=== PATIENT | male | born 1980 | race Caucasian/White ===

== ENCOUNTER 2018-02-03 13:00 | Outpatient (RCR) | payer MEDICAID, SELFPAY ==
--- NOTE | 2017-08-31 08:55 | HP.PTEVAL_ITS ---
Patient's Visit Information MCKAYLA SOLORZANO II is a 37 year old M referred to Physical Therapy by Raffi Ibarra with a diagnosis of CERVICAL MYOFASCIAL STRAIN,CERVICALAGIA,CHRONIC SHOULDER PAIN,DECONDITIONED. Date of Evaluation: 08/31/17 Physical Therapist: Geovanni Nicole PT, - Visit Plan Frequency: 2x /Week Duration: 4 Weeks Plan: Aquatic PT for cervical ROM,shoulder ROM ,postural ex's,strengthening UE - Subjective Subjective: This 37 y/o male presents to physical therapy cervical and shoulder pain for 5years. Patient had injury many years ago affected shoulder problems. Family DR recommended pain pain management.Adjusted Medication. Patient has pain injection epidural injections helped temporarly. DR recommended aquatic PT. Location of pain cervical left to UT to right shoulder.Symptoms worse with bending,siiting,lifting,driving,turning cervical spine. Symptoms better with MEDS ,ice/heat.Occassioanlly,parathesia left fingers. Patient has migraines/VILLA front. Denies tiinutus/nausea. Pain affects sleeping. Patient pain affects ADL' S and housework.Patient has been unable to work. Patient also had recent surgery left knee patella surgery lateral release and arthrospoic to improve tracking of patella. VOCATION: construction. SOCAIL: - Pain Left Neck Pain Intensity (Out of 10): 6 Pain Intensity Range: 10 Left Scapula Pain Intensity (Out of 10): 8 Pain Intensity Range: 10 - Objective POSTURE: mild foward posture. PALAPTION: UT/levator/occiput/SCAPULAR. NEURO: denies parathesia/tingling,reflexes C5-6-7. AROM: shoulder flexion 110 degrees, abduction 100 degrees with pain,ER pain 80 degrees -L,R - WFL. MMT: RTC 4-/5 SHOULDER 3+/5 -L,-R 4/5. CERVICAL ROM: flexion mod loss,extension/lateral flexion/rotation MOD - Special Tests C/S Radiculapathy - Left Upper limb tension test: Positive C/S Radiculapathy - Right Upper limb tension test: Positive C/S Radiculapathy - Left Spurlings: Positive C/S Radiculapathy - Right Spurlings: Positive C/S Radiculapathy - Left Cervical distraction: Positive C/S Radiculapathy - Right Cervical distraction: Positive C/S Radiculapathy - Right Relief test: Positive Vertebral Artery Test: Negative Cervical Sitting: Protrusion - Mechanical Response: No effect Cervical Sitting: Protrusion - Symptoms During Testing: Increases Cervical Sitting: Protrusion - Symptoms After Testing: Worse Cervical Sitting: Retraction - Mechanical Response: No effect Cervical Sitting: Retraction - Symptoms During Testing: Increases Cervical Sitting: Retraction - Symptoms After Testing: Worse - Goals Goal 1:: Independanat with Aquatic PT Goal Time Frame: 4-6 Weeks Goal 2:: Decrease shoulder and cervical pain by 50% or greater to improve function ADL'S Goal Time Frame: 4-6 Weeks Goal 3:: Independant with posture for ADL'S Goal Time Frame: 4-6 Weeks Goal 4:: Decrease shoulder pain pain and cervical pain by 50% or grater to improve function with ADL'S Goal Time Frame: 4-6 Weeks Goal 5:: Patient increase strength of left shoulder 4/5 to improve function with ADL'S and overhead activities Goal Time Frame: 4-6 Weeks - Rehabilitation Potential Physical Therapy Diagnosis: This 37 yo male presents with cervical and left shoulder pain with poor ROM, strength ,impairs ,ADL'S and job demands along with being deconditioned Rehabilitation Potential: Good - Anticipated Interventions Patient/Client Instruction: Educate patient on: Condition, Plan of Care For the Purpose of:: To decrease pain, To increase ROM, To improve muscle performance and motor function, To improve ability to perform ADL's, To increase tolerance to activity/condition/position, To improve ability of physical actions for home/community/work/leisure, To improve health of tissue, To decrease soft tissue restriction, To increase flexibility/ROM, To improve endurance, To improve health and function, To prevent re-injury, To improve ability to perform tasks related to life management Therapeutic Exercise to Include: Strength training, Body mechanics, Postural training, Flexibilty training, In an aquatic setting, Active ROM Comment: UE/CERVICAL For the Purpose of:: To decrease pain, To increase ROM, To improve muscle performance and motor function, To increase tolerance to activity/condition/ position, To improve ability of physical actions for home/community/work/leisure , To improve health of tissue, To decrease soft tissue restriction, To increase flexibility/ROM, To improve health and function, To foster healthy habits, To prevent re-injury, To improve ability to perform tasks related to life management Thank you for the opportunity to evaluate your patient. For Medicare and Medicare HMO plans, please review the plan of care and approve it. It will need to be FAXED BACK to us at [phone] for Medicare purposes. Please let me know if there are questions or concerns regarding this plan of care. Physician Signature: Date:
--- NOTE | 2018-02-03 13:31 | HP.PTDCSUM_ITS ---
HP - PT D/C Summary It has been my pleasure to treat MCKAYLA SOLORZANO II under orders from Raffi Ibarra, for the diagnosis of CERVICAL MYOFASCIAL STRAIN,CERVICALAGIA,CHRONIC SHOULDER PAIN,DECONDITIONED for a total of 21 visit(s). Discharge Date: 02/03/18 Please see the following information for a summary of their discharge status. - Subjective Subjective: Water exercised helped with pain for function with walking , standing and ADL'S. Pain is intemittant but mobility is better. - Pain Left Neck Pain Intensity (Out of 10): 6 Left Scapula Pain Intensity (Out of 10): 2 Back Pain Intensity (Out of 10): 4 Left Knee Pain Intensity (Out of 10): 6 - Overall Improvement % Improvement: 50 - Objective Objective/Function: POSTURE: mild foward posture. PALPATION: tender UT/ levator. AROM: flexion 95 degrees left ,140 flexion right,abd left 90 degrees, . MMT: BUE 4-/5 ,left shoulder 3/5 pain. + cervical quadrant - Goals Goal 1:: Independanat with Aquatic PT Goal Progress: Goal Met Goal 2:: Decrease shoulder and cervical pain by 50% or greater to improve function ADL'S Goal Progress: Progressing Goal 3:: Independant with posture for ADL'S Goal Progress: Progressing Goal 4:: Decrease shoulder pain pain and cervical pain by 50% or grater to improve function with ADL'S Goal Progress: Progressing Goal 5:: Patient increase strength of left shoulder 4/5 to improve function with ADL'S and overhead activities Goal Progress: Progressing - Plan Plan: D/C - D/C Information If there are questions or concerns regarding this patient's physical therapy, please feel free to call me at [phone]. Thank you for the referral of this patient. Sincerely, Geovanni Nicole, PT,
== END 2018-02-03 19:00 | disposition home or self-care (01) ==
LOC: PT 13:00
PROVIDERS: Family Provider Internal Medicine; PCP Internal Medicine; Visit Provider Anesthesiology Pain Medicine
DX: S16.1XXS Strain of muscle, fascia and tendon at neck level, sequela (principal); M54.2 Cervicalgia; M25.619 Stiffness of unspecified shoulder, not elsewhere classified; G89.29 Other chronic pain
CPT/HCPCS: 97113; 97162; 97530

== ENCOUNTER → 2018-06-28 14:00 | Outpatient (CLI) | payer MEDICAID, SELFPAY ==
[2018-05-24 14:00] VITALS: BP 148/87; PULSE 94; RESP 16; TEMP 36.8; O2SAT 97; BMI 50.3
--- NOTE | 2018-05-24 14:22 | SDCEKG_ITS ---
Test Reason : Blood Pressure : / mmHG Vent. Rate : 093 BPM Atrial Rate : 093 BPM P-R Int : 152 ms QRS Dur : 096 ms QT Int : 364 ms P-R-T Axes : 032 020 037 degrees QTc Int : 452 ms Normal sinus rhythm Normal ECG Confirmed by LEOBARDO HUYNH, KIKO ([id number]), editor department [facility] ([id number]) on 05/26/2018 2:02:56 PM Referred By: Leticia Richardson Confirmed By:KIKO BOOTH MD
[2018-05-24 15:50] LABS: Anion Gap 10 (5-15); BUN 12 mg/dL (7-18); BUN/Creat Ratio 13.7 RATIO (10-20); Calcium,Total 8.8 mg/dL (8.5-10.1); Chloride 105 mmol/L (98-107); Creatinine, Serum 0.87 mg/dL (0.70-1.30); EST Glomerular Filtration Rate 105 mL/min (>60); Est Glom Filt Rate - Afr Amer 127 mL/min (>60); Estimated Creatinine Clearance 113.56 ml/min; Glucose 93 mg/dL (74-106); Potassium 4.1 mmol/L (3.5-5.1); Sodium Level 143 mmol/L (136-145)
[2018-05-24 16:36] LABS: HIV - WCH Non-Reactive (Nonreactive)
[2018-05-25 09:08] LABS: HEPATITIS B SURFACE AG Negative (Negative); Hepatitis A AB, Total Negative (Negative); Hepatitis A IgM Antibody Negative (Negative); Hepatitis B Core AB IgM Negative (Negative); Hepatitis B Core Ab Total Negative (Negative); Hepatitis C Ab 0.1 s/co ratio (0.0-0.9)
[2018-05-25 11:11] LABS: Hep B Surface Antibodies Non Reactive (.)
== END ==
PROVIDERS: Family Provider Internal Medicine; PCP Internal Medicine; Visit Provider Orthopaedic Surgery
DX: Z01.812 Encounter for preprocedural laboratory examination (principal)
CPT/HCPCS: 36415; 80048; 86703; 86704; 86705; 86706; 86708; 86709; 86803; 87340; 93005

== ENCOUNTER 2018-09-13 08:09 | Inpatient (IN) | payer MEDICAID, SELFPAY ==
[2018-05-24 14:00] VITALS: BMI 50.3
[2018-09-13] VITALS (9 sets, daily range): BP systolic 112–152; BP diastolic 53–91; PULSE 102–115; RESP 14–18; TEMP 36.4–37.4; O2SAT 92–97; BMI 53.5
--- NOTE | 2018-09-13 11:18 | DCINST_ITS ---
Discharge Diet: No Restrictions - ttwb left leg with leg locked in extension during ambulation and at night, ice/ankle pumps/elevate toes above nose, call with calf pain, fever, chills or other issues; follow up in 5 days for dressing change and brace adjustment, may range motion of knee 0-40 while seated Discharge Activity: May Not Drive May shower in (days): 1 Ice area for (Minutes): 20 - Every hour while awake. Weight Bearing Status: Weight bearing as tolerated Keep extremity elevated above heart level: Operative Extremity Call your doctor if your incision/area has: Continuous Slow Oozing, Sudden Incre ased Bleeding, Increased Pain/ Swelling, Increased Redness, Foul Smelling Discharge Call your doctor if you observe: Fever of 101 or Higher, Coldness, Increased Pain, Numbness or Tingling, Change in Color, Calf discomfort Allergies/Adverse Reactions: Allergies buprenorphine [From Butrans] Allergy (Verified 09/13/18 08:36) Rash methylphenidate HCl [From Ritalin] Allergy (Verified 09/13/18 08:36) Hives Penicillins [PCN] Allergy (Verified 09/13/18 08:36) Hives Medications to take at Discharge Omeprazole [Prilosec] 20 mg PO DAILY 08/28/15 Gabapentin [Neurontin] 600 mg PO DAILY 03/16/16 Methocarbamol [Robaxin] 500 mg PO TID 03/16/16 citalopram 20 mg tablet 20 mg PO QDAY 10/12/17 divalproex 500 mg tablet,delayed release 500 mg PO BID tab 10/12/17 risperidone 1 mg tablet 2 mg PO QHS 10/12/17 Acetaminophen [Tylenol Extra Strength] 500 - 1,000 mg PO Q6H PRN PRN 05/24/18 Divalproex Sodium [Depakote] 1,000 mg PO QHS 05/24/18 Hydrocodone Bitart/Apap 5-325 [[place] 5MG-325MG] 1 - 2 tablet PO Q6H PRN PRN 5 Days #40 tablet 09/13/18 The following prescriptions were given: Hydrocodone Bitart/Apap 5-325 [[place] 5MG-325MG] 1 - 2 tablet PO Q6H PRN PRN 5 Days #40 tablet PRN Reason: Pain Primary Care Physician: Kaitlin Gudino MD [Primary Care Provider] - Test Results: Test results from this visit will be discussed in further detail at your follow- up appointment, if applicable. Please Follow Up With: Leticia Richardson, - [phone]
--- NOTE | 2018-09-13 11:18 | PCM.OPRPT ---
Report of Operation Date of Procedure: 09/13/18 Pre-Operative Diagnosis: left knee patellofemoral chondromalacia/arthritis, lateral meniscus tear, synovitis Post-Operative Diagnosis: same Surgery/Procedure Performed:: salk, partial lat meniscectomy, synovectomy, lateral release, open tibial tubercle osteotomy sand wheeler: Gerson Jimenez Type of Anesthesia:: General Anesthesiologist: Jomar Britt Estimated Blood Loss (mL): 20cc blood Fluids Replaced: 1400 cc LR Description of Procedure: Preoperative note Patient is a 38-year-old male well-known to our clinic. Patient had a previous arthroscopy by Dr. Marx with continued pain around the patella especially underneath the patella and locking the lateral aspect of his knee as well. MRI confirms lateral meniscus tear as well as patellofemoral chondromalacia patient is failed arthroscopy discussed all treatment options and the next treatment option for him for total knee are patellofemoral replacement is to do a tibial tubercle osteotomy as he is quite young. Risks benefits and alternatives surgery discussed with patient. Risks including but not limited to blood loss, blood clot, infection, neurovascular injury, failure procedure, loss of life and loss of limb. We also discussed that the patient needs to lose weight however is been difficult as he is having so much pain over this will alleviate some of his pain in order for him to lose weight and not proceed with stress behind his patellofemoral joint. Patient aware of risks and would like proceed with left knee arthroscopy open tibial tuberosity osteotomy, partial versus total lateral release, possible lateral meniscectomy. Operative note Patient seen and examined preoperative holding area. Left knee was marked. Patient brought to the operating room placed supine on the operating table. Sign, anesthesia, antibiotics were administered. The left leg was prepped and draped in usual sterile fashion with a tourniquet around his upper thigh. We marked out her incisions for portal placement as well as for tibial tubercle osteotomy. All bony prominences well-padded SCDs and NORMA hose stocking was placed on his contralateral limb. Timeout was performed. We then created her anterior lateral portal and began our diagnostic arthroscopy. Patella really tracked laterally on his trochlea had a dysplastic trochlea as well he had good cartilage in his proximal medial aspect of his patella. We moved down to the medial joint line. He had some grade 2 fibrillated changes of the tibial medial tibial plateau however medial femoral condyle was intact his medial meniscus was intact and stable probing after creating an anterior medial portal direct under direct visualization. His ACL PCL were present within the notch. He had grade 2 fibrillated changes of his lateral femoral condyle and grade 3 changes of his lateral tibial plateau and anterior horn lateral meniscus tear which was unstable to probing which were resected back with a shaver to a stable rim. Then reinserted a probe we had us a good stable meniscus remaining. We then irrigated the knee with copious amounts of sterile saline we moved her open tibial tubercle osteotomy. Made an incision starting from the just superior to the tibial tuberosity about 6 cm distally. We then used a 15 blade cut to cut through the skin dissected out tenotomy syllable of the tendon we then on either side of the tendon use a Bovie to create our release of our anterior lateral and anteromedial compartments for our cutting plane. We ensured to release the anterior compartment and extensively down the to the posterior aspect of the tibia in order to place a retractor to protect are not ulnar with vascular structures. We then placed completed our lateral release. We placed to breakaway guide pins proximally and distally to create our path for our saw cut. We then used a precision cut using a 10 blade to cut through the at about a 45 degree angle exiting starting medially and exiting laterally ensuring to protect all neurovascular structures at all times. We then angled this cut a little bit more anterior and a little bit less angulated about 30degrees at the insertion distally. We then completed our cut proximally with osteotome were able to then visualize and remove the tibial tubercle 15 mm anterior medial to complete her anterior medialization. We placed our 2 screws in standard technique using fluoroscopy to ensure that we did not penetrate through the back wall we did overdrilled just the arm up to the fracture site but not through place a 36 and a 40 mm screw and this was off the Arthrex system is a partially threaded screw. We visualizing fluoroscopy AP and lateral planes to ensure that we had good fixation. We then may start calcium carbonate again to the Arthrex system on the back table and inserted into the defect that we had laterally after removed after having moved from the tibial tubercle anterior and medial. We put some bone cement also medially. Please note that we irrigated the incision with copious amounts of sterile saline prior to this we then closed very loosely the anterior compartment and then irrigated with copious amounts of sterile saline afterwards as well. The skin and subcutaneous subcuticular was closed with 2-0 Vicryl and the skin was closed with 4-0 Monocryl. Sterile dressings and a knee locked in a brace locked in extension was applied to the left knee. Patient tolerated procedure well no complication transferred recovery room in stable condition. Patient will be admitted overnight for 23-hour obvious for pain management Postoperative note 23-hour observation management this is a quite painful procedure of the tibial tuberosity tubercle osteotomy Prescriptions sent to pharmacy aspirin to start when patient goes home pod 1 scds while in hospital discussed ankle pumps, ice, elevate leg to prevent blook clot and decrease pain ancef We will give family pictures in 2 weeks Discussed with family next Call with any issues or concerns This note was generated with [employer] dictation software. It may contain incorrect words, spelling, and punctuation that were not noted in checking the note before signing. - Admit VTE Documentation VTE Present on Admission: Yes VTE Mechan Device Prophylaxis: SCD's VTE Pharm Prophylaxis ordered?: Yes
[2018-09-13] MEDS: Cefazolin 2 GM in 0.9% Normal Saline 100 ML IV (11:20)
--- NOTE | 2018-09-13 12:15 | RAD_ITS ---
STUDY: X-RAY - LEFT KNEE REASON FOR EXAM: Surgery. TECHNIQUE: 3 fluoroscopic view(s) of the knee. COMPARISON: Radiographs 03/28/2017. FINDINGS: Status post patellar realignment with 2 orthopedic screws without demonstrated complication. Electronically Signed: Donald Martinez MD at 15:39 EST Tel , Service support , RAD/Knee 1 or 2 Views
[2018-09-13] MEDS: Mupirocin Ointment 22gm Tube 1 APPLIC (13:26)
[2018-09-13] MEDS: Bupiv/Epi 0.5% Mpf 30 ML Vial (13:29)
[2018-09-13] MEDS: Morphine 4 MG/ML Syringe IV (15:42)
[2018-09-13] MEDS: HYDROcodone Bitartrate/Apap 5/325 Tablet PO (17:36)
[2018-09-13] MEDS: Aspirin 325 MG Tablet PO (17:36)
[2018-09-13] MEDS: Cefazolin 1 GM/50 ML BAG IV (19:18)
[2018-09-13] MEDS: Morphine 2 MG/ML Syringe IV (19:45)
[2018-09-13] MEDS: 0.9% NaCl Peripheral Flush Adult/Peds IV (19:45)
[2018-09-14] MEDS: 0.9% NaCl Peripheral Flush Adult/Peds IV ×7 (00:01→19:10)
[2018-09-14] MEDS: Morphine 2 MG/ML Syringe IV ×2 (00:01→04:51)
[2018-09-14] MEDS: HYDROcodone Bitartrate/Apap 5/325 Tablet PO ×3 (01:51→15:25)
[2018-09-14 01:52] VITALS: BP 128/78; PULSE 108; RESP 18; TEMP 36.8; O2SAT 95
[2018-09-14] MEDS: Cefazolin 1 GM/50 ML BAG IV (03:08)
[2018-09-14 08:16] VITALS: BP 139/62; PULSE 111; RESP 18; TEMP 36.9; O2SAT 95
[2018-09-14] MEDS: Aspirin 325 MG Tablet PO ×2 (08:17→16:52)
[2018-09-14] MEDS: HYDROmorphone 1 MG/ML Syringe IV ×6 (09:50→21:19)
--- NOTE | 2018-09-14 12:10 | CASEMGMT ---
RN CM Face to Face with patient for initial transition planning/care coordination assessment. RN CM introduced self and role at [facility]. Patient lying in bed, alert and oriented, family at bedside. Patient willing to participate in assessment and is able to answer all questions appropriately. Care providers, pharmacy, and demographics verified. Patient wishes to discharge home, denies need for home health at this time, will follow-up with Dr. Richardson's office for follow-up plans and therapy. Patient states he has no further needs or concerns at this time. CM to follow for discharge planning needs that may arise. PCP: Terese Specialists: None Preferred Pharmacy: [facility] Insurance: [employer] Prescription Benefit: [employer] Living Will/HPOA: Yes, Mother Jessica ABARCA: Mother Living Arrangements: Patient lives with mother in 1st floor apt with ramp to enter the home. Transportation: Mother DME/HHC: Patient has cane and walker at home. Disposition Plan: Patient to discharge home with family support and follow-up plans in place. Yuko CARSON, RN, CM
[2018-09-14 14:15] VITALS: BP 129/74; PULSE 110; RESP 18; TEMP 37; O2SAT 93
[2018-09-14 20:19] VITALS: BP 139/88; PULSE 101; RESP 18; TEMP 36.6; O2SAT 93
[2018-09-15] MEDS: HYDROmorphone 1 MG/ML Syringe IV ×6 (00:07→11:04)
[2018-09-15] MEDS: HYDROcodone Bitartrate/Apap 5/325 Tablet PO ×3 (01:26→13:56)
[2018-09-15 02:19] VITALS: BP 148/87; PULSE 105; RESP 18; TEMP 36.9; O2SAT 95
[2018-09-15] MEDS: Aspirin 325 MG Tablet PO (07:40)
[2018-09-15 07:45] VITALS: BP 146/79; PULSE 110; RESP 18; TEMP 37.6; O2SAT 92
[2018-09-15] MEDS: 0.9% NaCl Peripheral Flush Adult/Peds IV ×2 (08:57→11:04)
[2018-09-15 14:00] VITALS: BP 152/70; PULSE 110; RESP 18; TEMP 36.9; O2SAT 95
--- NOTE | 2018-09-15 14:00 | CASEMGMT ---
JEFFERSON HURTADO updated that patient will require wheelchair at discharge. JEFFERSON HURTADO obtained script for Dr. Richardson's office. JEFFERSON HURTADO faxed referral to [facility] and arranged for delivery to patient's room. Patient declined further needs at this time.
--- NOTE | 2018-09-15 15:07 | PCM.DC.ORTHO ---
Discharge Diet: No Restrictions Discharge Activity: Return to Normal Activity, May Not Drive May shower in (days): 5 Ice area for (Minutes): 20 - Every hour while awake. Weight Bearing Status: Toe touch weight bearing - Patient to use walker at all times Keep extremity elevated above heart level: Operative Extremity, Left Leg Call your doctor if your incision/area has: Continuous Slow Oozing, Sudden Increased Bleeding, Increased Pain/ Swelling, Increased Redness, Foul Smelling Discharge Call your doctor if you observe: Fever of 101 or Higher, Coldness, Increased Pain, Numbness or Tingling, Change in Color, Shortness of breath, Calf discomfort Suture Line Care: Avoid Pulling/Pushing, Avoid Pinching/Bending Change Dressing in (Days):: 3 - Will change in office Remove Dressing in (days):: 3 - will remove in office Cleanse incision/area with: Keep Dressing Clean & Dry Allergies/Adverse Reactions: Allergies buprenorphine [From Butrans] Allergy (Verified 09/13/18 08:36) Rash methylphenidate HCl [From Ritalin] Allergy (Verified 09/13/18 08:36) Hives Penicillins [PCN] Allergy (Verified 09/13/18 08:36) Hives Medications to take at Discharge Omeprazole [Prilosec] 20 mg PO DAILY 08/28/15 Gabapentin [Neurontin] 600 mg PO DAILY 03/16/16 Methocarbamol [Robaxin] 500 mg PO TID 03/16/16 citalopram 20 mg tablet 20 mg PO QDAY 10/12/17 divalproex 500 mg tablet,delayed release 500 mg PO BID tab 10/12/17 risperidone 1 mg tablet 2 mg PO QHS 10/12/17 Acetaminophen [Tylenol Extra Strength] 500 - 1,000 mg PO Q6H PRN PRN 05/24/18 Divalproex Sodium [Depakote] 1,000 mg PO QHS 05/24/18 Hydrocodone Bitart/Apap 5-325 [[place] 5MG-325MG] 1 - 2 tablet PO Q6H PRN PRN 5 Days #40 tablet 09/13/18 The following prescriptions were given: Hydrocodone Bitart/Apap 5-325 [[place] 5MG-325MG] 1 - 2 tablet PO Q6H PRN PRN 5 Days #40 tablet PRN Reason: Pain Primary Care Physician: Kaitlin Gudino MD [Primary Care Provider] - Test Results: Test results from this visit will be discussed in further detail at your follow-up appointment, if applicable. Please Follow Up With: Leticia Richardson DO - [phone] When: 3-4 days (Tuesday or Tuesday) Physician Note - Physician Note Physician Note: Patient had discharge instruction that were written out post-operatively as he was initially supposed to be a 23 hour observation. Patient was kept inpatient due to intractable pain post-op. Patients original discharge instructions were given to patient as written on 09-13-18. Prescription is still awaiting pick-up at hospital pharmacy. Patient will f/u on Tuesday or Tuesday for wound check/dressing change as well as to adjust the brace. Notify hospital of any changes or concerns over the weekend.
--- NOTE | 2018-09-15 15:17 | DCINST_ITS ---
Discharge Diet: No Restrictions Discharge Activity: Return to Normal Activity, May Not Drive May shower in (days): 5 Ice area for (Minutes): 20 - Every hour while awake. Weight Bearing Status: Toe touch weight bearing - Patient to use walker at all times Keep extremity elevated above heart level: Operative Extremity, Left Leg Call your doctor if your incision/area has: Continuous Slow Oozing, Sudden Increased Bleeding, Increased Pain/ Swelling, Increased Redness, Foul Smelling Discharge Call your doctor if you observe: Fever of 101 or Higher, Coldness, Increased Pain, Numbness or Tingling, Change in Color, Shortness of breath, Calf discomfort Suture Line Care: Avoid Pulling/Pushing, Avoid Pinching/Bending Change Dressing in (Days):: 3 - Will change in office Remove Dressing in (days):: 3 - will remove in office Cleanse incision/area with: Keep Dressing Clean & Dry Allergies/Adverse Reactions: Allergies buprenorphine [From Butrans] Allergy (Verified 09/13/18 08:36) Rash methylphenidate HCl [From Ritalin] Allergy (Verified 09/13/18 08:36) Hives Penicillins [PCN] Allergy (Verified 09/13/18 08:36) Hives Medications to take at Discharge Omeprazole [Prilosec] 20 mg PO DAILY 08/28/15 Gabapentin [Neurontin] 600 mg PO DAILY 03/16/16 Methocarbamol [Robaxin] 500 mg PO TID 03/16/16 citalopram 20 mg tablet 20 mg PO QDAY 10/12/17 divalproex 500 mg tablet,delayed release 500 mg PO BID tab 10/12/17 risperidone 1 mg tablet 2 mg PO QHS 10/12/17 Acetaminophen [Tylenol Extra Strength] 500 - 1,000 mg PO Q6H PRN PRN 05/24/18 Divalproex Sodium [Depakote] 1,000 mg PO QHS 05/24/18 Hydrocodone Bitart/Apap 5-325 [[place] 5MG-325MG] 1 - 2 tablet PO Q6H PRN PRN 5 Days #40 tablet 09/13/18 The following prescriptions were given: Hydrocodone Bitart/Apap 5-325 [[place] 5MG-325MG] 1 - 2 tablet PO Q6H PRN PRN 5 Days #40 tablet PRN Reason: Pain Primary Care Physician: Kaitlin Gudino MD [Primary Care Provider] - Test Results: Test results from this visit will be discussed in further detail at your follow- up appointment, if applicable. Please Follow Up With: Leticia Richardson DO - [phone] When: 3-4 days (Tuesday or Tuesday) Physician Note - Physician Note Physician Note: Patient had discharge instruction that were written out post-operatively as he was initially supposed to be a 23 hour observation. Patient was kept inpatient due to intractable pain post-op. Patients original discharge instructions were given to patient as written on 09-13-18. Prescription is still awaiting pick-up at hospital pharmacy. Patient will f/u on Tuesday or Tuesday for wound check/dressing change as well as to adjust the brace. Notify hospital of any changes or concerns over the weekend.
== END 2018-09-15 16:03 | disposition home or self-care (01) | DRG 313 ==
LOC: MS3 09-15 14:17 → ACINP 09-18 11:01
PROVIDERS: Admitting Provider Orthopaedic Surgery; Family Provider Internal Medicine; PCP Internal Medicine; Referring Provider Orthopaedic Surgery; Visit Provider Orthopaedic Surgery
PROC: 0QSH04Z Reposition Left Tibia with Internal Fixation Device, Open Approach (ICD-10-PCS; CPT 29870; principal; 2018-09-13 09:45)
DX: M94.262 Chondromalacia, left knee (principal); M13.862 Other specified arthritis, left knee; M65.862 Other synovitis and tenosynovitis, left lower leg; S83.282A Other tear of lateral meniscus, current injury, left knee, initial encounter
CPT/HCPCS: 73560; 76000; 97162; 97165; 97802; C1713; J7120; A4216; J2405

== ENCOUNTER → 2018-09-28 16:02 | Outpatient (CLI) | payer MEDICAID, SELFPAY ==
[2018-09-28 15:48] VITALS: BMI 53.5
--- NOTE | 2018-09-28 16:03 | RAD_ITS ---
STUDY: X-RAY - LEFT KNEE REASON FOR EXAM: Postop check. TECHNIQUE: 2 view(s) of the knee. COMPARISON: Radiographs 03/28/2017. FINDINGS: Normal visualized distal femur. There are postoperative changes from patellar realignment without evidence of complication. Normal proximal tibiofibular articulation. Normal medial femorotibial compartment. There are small marginal osteophytes and mild joint space narrowing of the lateral femorotibial compartment. Normal patellofemoral articulation. There is anterior soft tissue swelling. RAD/Knee 1 or 2 Views IMPRESSION: Postoperative changes from patellar realignment without evidence of complication. 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 Electronically Signed: Donald Martinez MD at 9:42 EST Tel , Service support ,
--- OUTSIDE RECORDS SUMMARY | 2018-11-14 13:41 | XMS RPT_ITS ---
:1980 Author Organization OHIP Support Name Relationship Address Phone RASHAD ABE Unavailable [address] + [address] [place] [address] SOLORZANOWILLIAM SALASTHIA Unavailable [address] + [address] [place] [address] UE Unavailable Unavailable Unavailable ABE SOLORZANO Unavailable [address] + [address] [place] [address] SLOAN SOLORZANOA Unavailable [address] + [address] [place] [address] UE Unavailable Unavailable Unavailable ABE SOLORZANO Unavailable [address] + [address] [place] [address] SOLORZANOSLOAN SALASA Unavailable [address] + [address] [place] [address] UE Unavailable Unavailable Unavailable ABE SOLORZANO Unavailable [address] + [address] [place] [address] WILLIAM SOLORZANOTHIA Unavailable [address] + [address] [place] [address] UE Unavailable Unavailable Unavailable SLOAN SOLORZANOA Unavailable [address] + [address] [place] [address] UE Unavailable Unavailable Unavailable SLOAN SOLORZANOA Unavailable [address] + [address] [place] [address] UE Unavailable Unavailable Unavailable SLOAN SOLORZANOA Unavailable [address] + [address] [place] [address] UE Unavailable Unavailable Unavailable ABE SOLORZANO Unavailable [address] + [address] [place] [address] SOLORZANO SEJAL Unavailable [address] + [address] [place] [address] UE Unavailable Unavailable Unavailable SOLORZANO, SEJAL Unavailable [address] + [address] [place] [address] UE Unavailable Unavailable Unavailable SOLORZANO, SEJAL Unavailable [address] + [address] [place] [address] UE Unavailable Unavailable Unavailable SOLORZANO, SEJAL Unavailable [address] + [address] [place] [address] UE Unavailable Unavailable Unavailable SOLORZANO, SEJAL Unavailable [address] + [address] [place] [address] UE Unavailable Unavailable Unavailable SOLORZANO, SEJAL Unavailable [address] + [address] [place] [address] UE Unavailable Unavailable Unavailable SOLORZANO SEJAL Unavailable [address] + [address] [place] [address] SOLORZANO, ABE Unavailable [address] + [address] [place] [address] UE Unavailable Unavailable Unavailable SOLORZANOWILLIAMSEJAL Unavailable [address] + [address] [place] [address] SOLORZANO, ABE Unavailable [address] + [address] [place] [address] UE Unavailable Unavailable Unavailable Care Team Providers Name Role Phone GANTARENEERA Attending Unavailable GANTA, LACY Referring Unavailable TONY PEDROZA (HEALTH AND SAFETY TRAINER) Attending Unavailable GANTA, LACY Referring Unavailable MIKAYLA TOMAS (RD) Attending Unavailable TONY PEDROZA (HEALTH AND SAFETY TRAINER) Attending Unavailable GANTA, LACY Attending Unavailable GANTA, LACY Referring Unavailable CHARY WELCH (HEALTH AND SAFETY TRAINER) Attending Unavailable GANTA, LACY Attending Unavailable GANTA, LACY Referring Unavailable JAMA ANDERSON (PT) Attending Unavailable RAFFI IBARRA Referring Unavailable CHARY WELCH (HEALTH AND SAFETY TRAINER) Referring Unavailable Leticia Richardson Attending Unavailable Gustavota, Lacy Referring Unavailable Leticia Richardson Attending Unavailable Chicorelli, Leticia Referring Unavailable Ganta, Lacy Primary Care Unavailable Ganta, Lacy Primary Care Unavailable Bobbi Martin Attending Unavailable Chicorelli, Leticia Attending Unavailable Chicorelli, Leticia Attending Unavailable Ganta, Lacy Primary Care Unavailable Wayt, Gerson Attending Unavailable Ganta, Lacy Referring Unavailable IBARRA, RAFFI Attending Unavailable Ganta, Lacy Primary Care Unavailable IBARRA, RAFFI Referring Unavailable Chicorelli, Leticia Attending Unavailable Ganta, Lacy Referring Unavailable Ganta, Lacy Primary Care Unavailable Chicorelli, Leticia Attending Unavailable Chicorelli, Leticia Referring Unavailable Ganta, Lacy Primary Care Unavailable Chicorelli, Leticia Attending Unavailable Ganta, Lacy Referring Unavailable Moodispaw, Raffi Attending Unavailable DeHorta, Jomar Referring Unavailable Chicorelli, Leticia Attending Unavailable Ganta, Lacy Referring Unavailable Chicorelli, Leticia Admitting Unavailable Chicorelli, Leticia Attending Unavailable Chicorelli, Leticia Referring Unavailable Ganta, Lacy Primary Care Unavailable Wayt, Gerson Attending Unavailable Wayt, Gerson Referring Unavailable Ganta, Lacy Primary Care Unavailable Wayt, Gerson Attending Unavailable Ganta, Lacy Referring Unavailable PROBLEMS PROBLEMS DATE TYPE CONDITION / CODE ATTENDING STATUS SOURCE 11/07/2018 Unknown M25.562 - Pain in Brandyn Jimenezew Active [facility] left knee / Community M25.562(ICD-10) Hospital Repository 10/02/2018 Unknown 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, 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, 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 / Hospital M94.262(ICD-10) Repository 10/02/2018 Unknown M13.862 - Other Chicorelli, Active [facility] specified arthritis, [facility] left knee / Hospital M13.862(ICD-10) Repository 10/02/2018 Unknown M65.862 - Other [place]lli, Active [facility] synovitis and [facility] tenosynovitis, left Hospital lower leg / Repository M65.862(ICD-10) 10/02/2018 Unknown S83.282A - Other [place]lli, Active [facility] tear of lateral [facility] meniscus, current Hospital injury, left knee, Repository initial encounter / S83.282A(ICD-10) 09/18/2018 Unknown G89.18 - Other acute Chicorelli, Active [facility] postprocedural pain [facility] / G89.18(ICD-10) Hospital Repository 09/11/2018 Active Morbid (severe) [facility] obesity due to Clinic Main excess calories / [place] E66.01(ICD-10) Repository 09/11/2018 Active Vitamin D [facility] deficiency, [facility] Main unspecified / [place] E55.9(ICD-10) Repository 07/04/2018 Active Radiculopathy, [facility] lumbar region / Clinic Other M54.16(ICD-10) [place] Repository 06/28/2018 Unknown Z01.810 - Encounter Raffi Booth Active [place] for preprocedural [facility] examination / Repository Z01.810(ICD-10) 05/17/2018 Active Pain in left toe(s) NA Active [place] / M79.675(ICD-10) Clinic Main [place] Repository 02/16/2018 Active 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 / [place] Z79.899(ICD-10) Repository 02/09/2018 Unknown S16.1XXS - Strain of RAFFI IBARRA Active [facility] muscle, fascia and Community tendon at neck Hospital level, sequela / Repository S16.1XXS(ICD-10) PROCEDURES PROCEDURES No Procedure Records FoundRESULTS RESULTS KNEE 4 OR MORE Observed: 11/07/2018 Status: F Source: [place] VIEWS 2:33 PM [facility] REPOSITORY [facility] Imaging Services [address] [place] [address] Knee 4 or More Views MR#: [id number] Acct: [id number] Name: MCKAYLA SOLORZANO II Rep #: [id number] : 1980 M 38 From: Calvin Rush MD PCP: Lacy Roberson MD Status: REG CLI Study: Knee 4 or More Views Date of Exam: 11/07/18 Exam# [id number] Ordering Dr: Gerson Jimenez STUDY: X-RAY - LEFT KNEE REASON FOR EXAM: Male, 38 years old. Follow-up postoperative TECHNIQUE: 4 view(s) of the knee. COMPARISON: None. FINDINGS: Screw fixation at the patellar tendon insertion. Blunting of the SPECT morphology of the tibial tubercle. There appears to mild thickening of the distal patellar tendon. Small suprapatellar knee joint effusion. Mild tricompartmental DJD, with osteophytic lipping about the margins of the medial and lateral compartment and patellofemoral compartment. Most prominent of the lateral compartment. RAD/Knee 4 or More Views IMPRESSION: Surgical construct as described. Small effusion. Tricompartmental DJD. Electronically Signed: Calvin Rush MD at 18:11 EST Tel , Service support , CC: MADELAINE Jimenez; Lacy Roberson MD [employer] Hel[employer]ry: Signed ORTHOPEDIC VISIT Observed: 10/05/2018 Status: F Source: [place] REPORT 8:12 PM [facility] REPOSITORY [facility] [address] [place] [address] OFFICE VISIT Date of Service: 09/28/18 MR#: [id number] Acct: [id number] Name: MCKAYLA SOLORZANO HERIBERTO Rep #: [id number] : 1980 Provider: Leticia Richardson DO Age/Sex: 38/M Location: [facility] Status: Signed Intake Vital Signs09/28/18 Body Mass Index (BMI) 53.5 Intake Visit Reasons: LEFT KNEE Is patient in pain?: Yes Allergies buprenorphine [From Butrans] Allergy (Verified 09/29/18 20:13) Rash methylphenidate HCl [From Ritalin] Allergy (Verified 09/29/18 20:13) Hives Penicillins [PCN] Allergy (Verified 09/29/18 20:13) Hives Medications Omeprazole [Prilosec] 20 mg PO DAILY 08/28/15 [History Confirmed 09/29/18] Gabapentin [Neurontin] 600 mg PO DAILY 03/16/16 [History Confirmed 09/29/18] Methocarbamol [Robaxin] 500 mg PO TID 03/16/16 [History Confirmed 09/29/18] citalopram 20 mg tablet 20 mg PO QDAY 10/12/17 [History Confirmed 09/29/18] divalproex 500 mg tablet,delayed release 500 mg PO BID tab 10/12/17 [History Confirmed 09/29/18] risperidone 1 mg tablet 2 mg PO QHS 10/12/17 [History Confirmed 09/13/18] Acetaminophen [Tylenol Extra Strength] 500 - 1,000 mg PO Q6H PRN PRN 05/24/18 [History Confirmed 09/29/18] Divalproex Sodium [Depakote] 1,000 mg PO QHS 05/24/18 [History Confirmed 09/29/18] Risperidone [Risperdal] 3 mg PO QHS 09/29/18 [History Confirmed 09/29/18] PFSH Medical History Chronic neck pain (Chronic) Chronic shoulder pain (Chronic) Surgical History S/P left knee arthroscopy (Acute) h/o left knee TTO surgery (Acute) History of incision and drainage (Inactive) Family History Other Arthritis Cancer Hypertension Social History Smoking Status: Never smoker HPI LEFT KNEE: Details: MCKAYLA SOLORZANO is a 38 year old M here today for s/p left knee TTO dos 09/13/18. Patient notes that he continues to have knee pain. He notes that he has been wearing his knee brace when he is up and moving. Patient notes that he has been non- weightbearing. Patient has small red dots along his calf. Denies numbness, tingling or other associated symptoms. He denies any fevers or chills. ROS Const Reports system reviewed and no additional complaints, except as docu Eyes Reports system reviewed and no additional complaints, except as docu ENT Reports system reviewed and no additional complaints, except as docu Card Reports system reviewed and no additional complaints, except as docu Resp Reports system reviewed and no additional complaints, except as docu GI Reports system reviewed and no additional complaints, except as docu Reports system reviewed and no additional complaints, except as docu Musc Reports joint pain, Reports joint swelling, Reports limited joint movement, Reports muscle weakness Skin/Breast Reports system reviewed and no additional complaints, except as docu Neuro Yes system reviewed and no additional complaints, except as docu Psych Reports system reviewed and no additional complaints, except as docu Endo Reports system reviewed and no additional complaints, except as docu Ortho Exam Left Knee Date of Surgery: 09/13/18 Skin/Wound: Yes suture/philip removed Contralateral Normal: Yes Swelling: Yes Homans Sign: No Knee ROM: Yes ROM-Extension -20 to 0 Examination: Yes Pain with flexion Quad Atrophy: Yes Assessment AND Plan 1. Orthopedic aftercare Z47.89 Plan Personally reviewed the surgical images if available, the surgery procedure and reviewed the post op care instructions. Monitor for signs of infection, redness, warmth, swelling in excess, drainage, opening of incision site/sites, and/or fever. He has some folliculitis on bilat lower legs that is not concerning for infection but he should use benadryl cream/steroid cream. He is at risk of increased tenderness to touch due to the bone work and lateral release. Instructed to work on wb in extension and wean off crutches. Refill percocet today for another week. Follow up in a month or sooner if pain, swelling, numbness or associated symptoms, or concerns develop. All questions answered. Patient in agreement of plan. Coding Level of Care Code Global Post Op Diagnoses Orthopedic aftercare Z47.89 10/05/182011 <Electronically signed by Leticia Richardson DO> Date Leticia Moreno Signature: Date (if applicable) CC: EMERGENCY DEPARTMENT Observed: 09/30/2018 Status: F Source: [place] SUMMARY 12:05 AM [facility] REPOSITORY [facility] Medical Records Department [address] [place] [address] Emergency Department Summary 09/29/18 2109 MR#: [id number] Acct: [id number] Name: MCKAYLA SOLORZANO II Rep #: [id number] : 1980 38 From: Bobbi Martin MD PCP: Lacy Roberson MD Status: DEP ER - ER Visit Summary Date of Service: 09/29/18 Chief Complaint: Left leg pain and swelling History of Present Illness: The patient is a 38 M who is 16 days postop left knee surgery that her Dylan. Patient has had problems with left leg swelling. Tonight he had pain in the medial portion of the calf and PA seo professional asked the patient come in to rule out DVT. Patient denies chest pain or shortness of breath. Physical Examination: Blood pressure is 151/76, otherwise unremarkable. Head neck examination is unremarkable. Heart is regular rate and rhythm. Lung sounds clear. Abdomen soft nontender. Left lower extremity reveals generalized edema. Anterior left knee incision is clean and intact. There is no significant erythema. He has minimal tenderness of the calf. Test Results: Venous ultrasound of the left leg is unremarkable with no sign of DVT. Emergency Department Course and Treatment: Test results are discussed with the patient. He will continue his pain medication at home and follow-up with orthopedics next week. Treatment Plan: Disposition: Discharge Impression: Postop pain This note was generated with [employer] dictation software. It may contain incorrect words, spelling, and punctuation that were not noted in review of the chart prior to signing ED Disposition - Plan for ED Patient: Disposition: Home or Assisted Living Chief Complaint: Lower Extremity Injury Instructions: ED Post Op Pain Referrals: Leticia Richardson DO [STAFF PHYSICIAN] - Additional Instructions: No evidence of DVT on your ultrasound tonight - follow-up with Dr Richardson early next week. What to do if you have Problems For any increased pain, shortness of breath, bleeding, nausea or vomiting, chest pain, or any unexpected problems, contact your Primary Care Provider. Call [facility] ([phone]) or report to the closest Emergency Room. Call 911 if necessary. 09/30/18 0005 <Electronically signed by Bobbi Martin MD> Date Bobbi Martin MD Cosigner Signature (If Indicated): Date CC: Lacy Roberson MD DISCHARGE INSTRUCTION Observed: 09/29/2018 Status: F Source: [place] 9:11 PM [facility] RE[facility] Medical Records Department [address] [place] [address] Discharge Instruction 09/29/182108 MR#: [id number] Acct: [id number] Name: MCKAYLA SOLORZANO II Rep #: [id number] : 1980 38 From: Bobbi Martin MD PCP: Lacy Roberson MD Status: REG ER ED Disposition - Plan for ED Patient: Disposition: Home or Assisted Living Chief Complaint: Lower Extremity Injury Instructions: ED Post Op Pain Referrals: Leticia Richardson DO [STAFF PHYSICIAN] - Additional Instructions: No evidence of DVT on your ultrasound tonight - follow-up with Dr Richardson early next week. What to do if you have Problems For any increased pain, shortness of breath, bleeding, nausea or vomiting, chest pain, or any unexpected problems, contact your Primary Care Provider. Call [facility] Registry ([phone]) or report to the closest Emergency Room. Call 911 if necessary. 09/29/182110 <Electronically signed by Bobbi Martin MD> Date Bobbi Martin MD Cosigner Signature (If Indicated): Date CC: Lacy Roberson MD VENOUS DUPLEX Observed: 09/29/2018 Status: F Source: [place] IMAG/LIMITED/UNI 8:31 PM [facility] REPOSIT[facility] Imaging Services [address] [place] [address] Venous Duplex Imag/Limited/Uni MR#: [id number] Acct: [id number] Name: MCKAYLA SOLORZANO II Rep #: [id number] : 1980 M 38 From: Luis Armando Mcintosh MD PCP: Lacy Roberson MD Status: [facility] ER Study: Venous Duplex Imag/Limited/Uni Date of Exam: 09/29/18 Exam# [id number] Ordering Dr: Bobbi Martin MD STUDY: VENOUS DOPPLER ULTRASOUND - LEFT LOWER EXTREMITY REASON FOR EXAM: Male, 38 years old. LT POSTERIOR CALF PAIN AFTER EXERCISE TODAY...PT HAD LT KNEE SX LAST WEEK TECHNIQUE: Ultrasound evaluation of the deep vein system to include oliveira-scale imaging and compression was performed. Oliveira-scale imaging and Doppler sonographic evaluation, including duplex spectral analysis and qualitative color flow sonography, was performed. COMPARISON: None. FINDINGS: Common Femoral Vein: Normal compression, spontaneity and augmentation. Normal color Doppler. Common Femoral Vein/Greater Saphenous Junction: Normal compression, spontaneity and augmentation. Normal color Doppler. Deep Femoral Vein: Normal compression, spontaneity and augmentation. Normal color Doppler. Femoral Proximal: Normal compression, spontaneity and augmentation. Normal color Doppler. Femoral Middle: Normal compression, spontaneity and augmentation. Normal color Doppler. Femoral Distal: Normal compression, spontaneity and augmentation. Normal color Doppler. Popliteal Vein: Normal compression, spontaneity and augmentation. Normal color Doppler. Posterior Tibial Vein: Normal compression, spontaneity and augmentation. Normal color Doppler. Peroneal Vein: Normal compression, spontaneity and augmentation. Normal color Doppler. US/Venous Duplex Imag/Limited/Uni IMPRESSION: Normal venous Doppler ultrasound of the lower extremity. Electronically Signed: Luis Armando Mcintosh MD at 21:16 EST , Service support , CC: Lacy Roberson MD; Bobbi Martin MD [employer] Hel[employer] [place]: Signed KNEE 1 OR 2 VIEWS Observed: 09/28/2018 Status: F Source: [place] 4:04 PM [facility] REPOS[facility] Imaging Services [address] [place] [address] Knee 1 or 2 Views MR#: [id number] Acct: [id number] Name: MCKAYLA SOLORZANO II Rep #: [id number] : 1980 M 38 From: Donald Martinez MD PCP: Lacy Roberson MD Status: REG CLI Study: Knee 1 or 2 Views Date of Exam: 09/28/18 Exam# [id number] Ordering Dr: Leticia Richardson DO STUDY: X-RAY - LEFT KNEE REASON FOR EXAM: Postop check. TECHNIQUE: 2 view(s) of the knee. COMPARISON: Radiographs 03/28/2017. FINDINGS: Normal visualized distal femur. There are postoperative changes from patellar realignment without evidence of complication. Normal proximal tibiofibular articulation. Normal medial femorotibial compartment. There are small marginal osteophytes and mild joint space narrowing of the lateral femorotibial compartment. Normal patellofemoral articulation. There is anterior soft tissue swelling. RAD/Knee 1 or 2 Views IMPRESSION: Postoperative changes from patellar realignment without evidence of complication. 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 Electronically Signed: Donald Martinez MD at 9:42 EST Tel , Service support , CC: Leticia Richardson DO; Lacy Roberson MD Cook Helper [place]ry: Signed OPERATIVE REPORT Observed: 09/20/2018 Status: F Source: [place] 2:35 PM [facility] RE[facility] Medical Records Department [address] [place] [address] Operative Report 09/13/18 1118 MR#: [id number] Acct: [id number] Name: MCKAYLA SOLORZANO HERIBERTO Rep #: [id number] : 1980 38 From: Leticia Richardson DO PCP: Lacy Roberson MD Status: DIS IN Y Location: [place] [id number] Report of Operation Date of Procedure: 09/13/18 Pre-Operative Diagnosis: left knee patellofemoral chondromalacia/arthritis, lateral meniscus tear, synovitis Post-Operative Diagnosis: same Surgery/Procedure Performed:: salk, partial lat meniscectomy, synovectomy, lateral release, open tibial tubercle osteotomy food critic: Gerson Jimenez Type of Anesthesia:: General Anesthesiologist: Jomar Britt Estimated Blood Loss (mL): 20cc blood Fluids Replaced: 1400 cc LR Description of Procedure: Preoperative note Patient is a 38-year-old male well-known to our clinic. Patient had a previous arthroscopy by Dr. Marx with continued pain around the patella especially underneath the patella and locking the lateral aspect of his knee as well. MRI confirms lateral meniscus tear as well as patellofemoral chondromalacia patient is failed arthroscopy discussed all treatment options and the next treatment option for him for total knee are patellofemoral replacement is to do a tibial tubercle osteotomy as he is quite young. Risks benefits and alternatives surgery discussed with patient. Risks including but not limited to blood loss, blood clot, infection, neurovascular injury, failure procedure, loss of life and loss of limb. We also discussed that the patient needs to lose weight however is been difficult as he is having so much pain over this will alleviate some of his pain in order for him to lose weight and not proceed with stress behind his patellofemoral joint. Patient aware of risks and would like proceed with left knee arthroscopy open tibial tuberosity osteotomy, partial versus total lateral release, possible lateral meniscectomy. Operative note Patient seen and examined preoperative holding area. Left knee was marked. Patient brought to the operating room placed supine on the operating table. Sign, anesthesia, antibiotics were administered. The left leg was prepped and draped in usual sterile fashion with a tourniquet around his upper thigh. We marked out her incisions for portal placement as well as for tibial tubercle osteotomy. All bony prominences well-padded SCDs and NORMA hose stocking was placed on his contralateral limb. Timeout was performed. We then created her anterior lateral portal and began our diagnostic arthroscopy. Patella really tracked laterally on his trochlea had a dysplastic trochlea as well he had good cartilage in his proximal medial aspect of his patella. We moved down to the medial joint line. He had some grade 2 fibrillated changes of the tibial medial tibial plateau however medial femoral condyle was intact his medial meniscus was intact and stable probing after creating an anterior medial portal direct under direct visualization. His ACL PCL were present within the notch. He had grade 2 fibrillated changes of his lateral femoral condyle and grade 3 changes of his lateral tibial plateau and anterior horn lateral meniscus tear which was unstable to probing which were resected back with a shaver to a stable rim. Then reinserted a probe we had us a good stable meniscus remaining. We then irrigated the knee with copious amounts of sterile saline we moved her open tibial tubercle osteotomy. Made an incision starting from the just superior to the tibial tuberosity about 6 cm distally. We then used a 15 blade cut to cut through the skin dissected out tenotomy syllable of the tendon we then on either side of the tendon use a Bovie to create our release of our anterior lateral and anteromedial compartments for our cutting plane. We ensured to release the anterior compartment and extensively down the to the posterior aspect of the tibia in order to place a retractor to protect are not ulnar with vascular structures. We then placed completed our lateral release. We placed to breakaway guide pins proximally and distally to create our path for our saw cut. We then used a precision cut using a 10 blade to cut through the at about a 45 degree angle exiting starting medially and exiting laterally ensuring to protect all neurovascular structures at all times. We then angled this cut a little bit more anterior and a little bit less angulated about 30degrees at the insertion distally. We then completed our cut proximally with osteotome were able to then visualize and remove the tibial tubercle 15 mm anterior medial to complete her anterior medialization. We placed our 2 screws in standard technique using fluoroscopy to ensure that we did not penetrate through the back wall we did overdrilled just the arm up to the fracture site but not through place a 36 and a 40 mm screw and this was off the Arthrex system is a partially threaded screw. We visualizing fluoroscopy AP and lateral planes to ensure that we had good fixation. We then may start calcium carbonate again to the Arthrex system on the back table and inserted into the defect that we had laterally after removed after having moved from the tibial tubercle anterior and medial. We put some bone cement also medially. Please note that we irrigated the incision with copious amounts of sterile saline prior to this we then closed very loosely the anterior compartment and then irrigated with copious amounts of sterile saline afterwards as well. The skin and subcutaneous subcuticular was closed with 2-0 Vicryl and the skin was closed with 4-0 Monocryl. Sterile dressings and a knee locked in a brace locked in extension was applied to the left knee. Patient tolerated procedure well no complication transferred recovery room in stable condition. Patient will be admitted overnight for 23-hour obvious for pain management Postoperative note 23-hour observation management this is a quite painful procedure of the tibial tuberosity tubercle osteotomy Prescriptions sent to pharmacy aspirin to start when patient goes home pod 1 scds while in hospital discussed ankle pumps, ice, elevate leg to prevent blook clot and decrease pain ancef We will give family pictures in 2 weeks Discussed with family next Call with any issues or concerns This note was generated with EcoFactoration software. It may contain incorrect words, spelling, and punctuation that were not noted in checking the note before signing. - Admit VTE Documentation VTE Present on Admission: Yes VTE Mechan Device Prophylaxis: SCD's VTE Pharm Prophylaxis ordered?: Yes 09/20/18 1435 <Electronically signed by Leticia Richardson DO> Date Leticia Richardson DO CC: Leticia Richardson DO; Lacy Roberson MD Signed ORTHOPEDIC VISIT Observed: 09/19/2018 Status: F Source: [place] REPORT 4:06 PM [facility] REPOSITORY [facility] Orthopaedics AND Sports Medicine [address] [place] [address] OFFICE VISIT Date of Service: 09/18/18 MR#: [id number] Acct: [id number] Name: MCKAYLA SOLORZANO HERIBERTO Rep #: [id number] : 1980 Provider: MADELAINE Jimenez Age/Sex: 38/M Location: [facility] Status: Signed Intake Intake Visit Reasons: knee Is patient in pain?: Yes Pain scale (1-10): 9 Allergies buprenorphine [From Butrans] Allergy (Verified 09/13/18 08:36) Rash methylphenidate HCl [From Ritalin] Allergy (Verified 09/13/18 08:36) Hives Penicillins [PCN] Allergy (Verified 09/13/18 08:36) Hives Medications Omeprazole [Prilosec] 20 mg PO DAILY 08/28/15 [History Confirmed 09/13/18] Gabapentin [Neurontin] 600 mg PO DAILY 03/16/16 [History Confirmed 09/13/18] Methocarbamol [Robaxin] 500 mg PO TID 03/16/16 [History Confirmed 09/13/18] citalopram 20 mg tablet 20 mg PO QDAY 10/12/17 [History Confirmed 09/13/18] divalproex 500 mg tablet,delayed release 500 mg PO BID tab 10/12/17 [History Confirmed 09/13/18] risperidone 1 mg tablet 2 mg PO QHS 10/12/17 [History Confirmed 09/13/18] Acetaminophen [Tylenol Extra Strength] 500 - 1,000 mg PO Q6H PRN PRN 05/24/18 [History Confirmed 09/13/18] Divalproex Sodium [Depakote] 1,000 mg PO QHS 05/24/18 [History Confirmed 09/13/18] oxycodone-acetaminophen 5 mg-325 mg tablet See Rx Instructions PO Q6H PRN 5 Days #40 tab 09/18/18 [Rx Confirmed 09/18/18] PFSH Medical History Chronic neck pain (Chronic) Chronic shoulder pain (Chronic) Surgical History S/P left knee arthroscopy (Acute) History of incision and drainage (Inactive) Family History Other Arthritis Cancer Hypertension Social History Smoking Status: Never smoker HPI knee: Details: MCKAYLA SOLORZANO is a 38 year old M here today for follow- up on left knee surgery. Patient still has quite a bit of pain in the knee that is not currently controlled with [place]. He does have it propped up at all time and does ice with his wifes ice machine. He denies any calf pains, redness, or discharge from the incision site. Ortho Exam Left Knee Skin/Wound: Yes healing Swelling: Yes Homans Sign: No Knee ROM: No ROM-Extension -20 to 0, No ROM-Flexion 0-140 Quad Atrophy: No Popliteal Adenopathy: No KNEE: Patient has evident generalized swelling of the knee to be expected at this point postoperative. The incision sites are clean and dry without any surrounding erythema, inflammation, or discharge that would indicate infection. He still has generalized tenderness about the knee at this point Which it is also to be expected. Assessment AND Plan Problems 1. Orthopedic aftercare Z47.89 Plan At this point patient is 5 days postoperative from a left knee transtibial osteotomy there is some generalized swelling of the knee and tenderness at the site of the procedure at the same time there is no signs or symptoms at the incision sites to indicate infection at this time. He is to continue to elevate the leg with toes above his nose whenever possible and continue with icing 20 minutes every hour when possible. He is to be in a brace locked in extension at all time. At this time I did discuss changing his pain medications with Dr. Aaron and we are going to go ahead and try him on some Percocet. He is to stop taking the [place] altogether. He is to continue to not take any more Tylenol in addition to the Percocet. We will recheck in 1 week for suture removal. He is to notify the office sooner of any calf pain, shortness of breath, redness of the knee, increasing pain to the knee, or discharge from the incision site. Medications New: oxycodone-acetaminophen 5-325 mg (Percocet1-2 tablets PO Q6H PRN pain; Start with loG89.18 ) west dose first 5 days 40 tabs 0RF pain Plan Detail Follow Up 1 Week Coding Level of Care Code Global Post Op Diagnoses Orthopedic aftercare Z47.89 09/19/18 1606 <Electronically signed by Gerson BURKETT> Date Gerson BURKETT Cosigner Signature: Date (if applicable) CC: DISCHARGE INSTRUCTION Observed: 09/15/2018 Status: F Source: [place] 3:27 PM [facility] REPOSITORY [facility] Medical Records Department [address] [place] [address] Instructions for Home/Discharge Instructions 09/15/18 1507 MR#: [id number] Acct: [id number] Name: MCKAYLA SOLORZANO II Rep #: [id number] : 1980 38 From: Gerson BURKETT PCP: Lacy Roberson MD Status: ADM KIMBERLY Discharge Diet: No Restrictions Discharge Activity: Return to Normal Activity, May Not Drive May shower in (days): 5 Ice area for (Minutes): 20 - Every hour while awake. Weight Bearing Status: Toe touch weight bearing - Patient to use walker at all times Keep extremity elevated above heart level: Operative Extremity, Left Leg Call your doctor if your incision/area has: Continuous Slow Oozing, Sudden Increased Bleeding, Increased Pain/ Swelling, Increased Redness, Foul Smelling Discharge Call your doctor if you observe: Fever of 101 or Higher, Coldness, Increased Pain, Numbness or Tingling, Change in Color, Shortness of breath, Calf discomfort Suture Line Care: Avoid Pulling/Pushing, Avoid Pinching/Bending Change Dressing in (Days):: 3 - Will change in office Remove Dressing in (days):: 3 - will remove in office Cleanse incision/area with: Keep Dressing Clean AND Dry Allergies/Adverse Reactions: Allergies buprenorphine [From Butrans] Allergy (Verified 09/13/18 08:36) Rash methylphenidate HCl [From Ritalin] Allergy (Verified 09/13/18 08:36) Hives Penicillins [PCN] Allergy (Verified 09/13/18 08:36) Hives Medications to take at Discharge Omeprazole [Prilosec] 20 mg PO DAILY 08/28/15 Gabapentin [Neurontin] 600 mg PO DAILY 03/16/16 Methocarbamol [Robaxin] 500 mg PO TID 03/16/16 citalopram 20 mg tablet 20 mg PO QDAY 10/12/17 divalproex 500 mg tablet,delayed release 500 mg PO BID tab 10/12/17 risperidone 1 mg tablet 2 mg PO QHS 10/12/17 Acetaminophen [Tylenol Extra Strength] 500 - 1,000 mg PO Q6H PRN PRN 05/24/18 Divalproex Sodium [Depakote] 1,000 mg PO QHS 05/24/18 Hydrocodone Bitart/Apap 5-325 [[place] 5MG-325MG] 1 - 2 tablet PO Q6H PRN PRN 5 Days #40 tablet 11/28/18 The following prescriptions were given: Hydrocodone Bitart/Apap 5-325 [[place] 5MG-325MG] 1 - 2 tablet PO Q6H PRN PRN 5 Days #40 tablet PRN Reason: Pain Primary Care Physician: Lacy Roberson MD [Primary Care Provider] - Test Results: Test results from this visit will be discussed in further detail at your follow-up appointment, if applicable. Please Follow Up With: Leticia Richardson DO - [phone] When: 3-4 days (Tuesday or Tuesday) Physician Note - Physician Note Physician Note: Patient had discharge instruction that were written out post- operatively as he was initially supposed to be a 23 hour observation. Patient was kept inpatient due to intractable pain post-op. Patients original discharge instructions were given to patient as written on 09-13-18. Prescription is still awaiting pick-up at hospital pharmacy. Patient will f/u on Tuesday or Tuesday for wound check/dressing change as well as to adjust the brace. Notify hospital of any changes or concerns over the weekend. 09/15/18 1527 <Electronically signed by Gerson BURKETT> Date Gerson BURKETT CC: Lacy Roberson MD KNEE 1 OR 2 VIEWS Observed: 09/13/2018 Status: F Source: [place] 2:24 PM [facility] REPOS[facility]ORY [facility] Imaging Services [address] [place] [address] Knee 1 or 2 Views MR#: [id number] Acct: [id number] Name: MCKAYLA SOLORZANO II Rep #: [id number] : 1980 M 38 From: Donald Martinez MD PCP: Lacy Roberson MD Status: ADM IN Study: Knee 1 or 2 Views Date of Exam: 09/13/18 Exam# [id number] Ordering Dr: Leticia Richardson DO STUDY: X-RAY - LEFT KNEE REASON FOR EXAM: Surgery. TECHNIQUE: 3 fluoroscopic view(s) of the knee. COMPARISON: Radiographs 03/28/2017. FINDINGS: Status post patellar realignment with 2 orthopedic screws without demonstrated complication. Electronically Signed: Donald Martinez MD at 15:39 EST Tel , Service support , RAD/Knee 1 or 2 Views CC: Leticia Richardson DO; Lacy Roberson MD [employer]: Signed DISCHARGE INSTRUCTION Observed: 09/13/2018 Status: F Source: [place] 1:28 PM [facility] REPOSITORY [facility] Medical Records Department [address] [place] [address] Instructions for Home/Discharge Instructions 09/13/18 1116 MR#: [id number] Acct: [id number] Name: MCKAYLA SOLORZANO HERIBERTO Rep #: [id number] : 1980 38 From: Leticia Richardson DO PCP: Lacy Roberson MD Status: ADM IN Discharge Diet: No Restrictions - ttwb left leg with leg locked in extension during ambulation and at night, ice/ankle pumps/elevate toes above nose, call with calf pain, fever, chills or other issues; follow up in 5 days for dressing change and brace adjustment, may range motion of knee 0-40 while seated Discharge Activity: May Not Drive May shower in (days): 1 Ice area for (Minutes): 20 - Every hour while awake. Weight Bearing Status: Weight bearing as tolerated Keep extremity elevated above heart level: Operative Extremity Call your doctor if your incision/area has: Continuous Slow Oozing, Sudden Increased Bleeding, Increased Pain/ Swelling, Increased Redness, Foul Smelling Discharge Call your doctor if you observe: Fever of 101 or Higher, Coldness, Increased Pain, Numbness or Tingling, Change in Color, Calf discomfort Allergies/Adverse Reactions: Allergies buprenorphine [From Butrans] Allergy (Verified 09/13/18 08:36) Rash methylphenidate HCl [From Ritalin] Allergy (Verified 09/13/18 08:36) Hives Penicillins [PCN] Allergy (Verified 09/13/18 08:36) Hives Medications to take at Discharge Omeprazole [Prilosec] 20 mg PO DAILY 08/28/15 Gabapentin [Neurontin] 600 mg PO DAILY 03/16/16 Methocarbamol [Robaxin] 500 mg PO TID 03/16/16 citalopram 20 mg tablet 20 mg PO QDAY 10/12/17 divalproex 500 mg tablet,delayed release 500 mg PO BID tab 10/12/17 risperidone 1 mg tablet 2 mg PO QHS 10/12/17 Acetaminophen [Tylenol Extra Strength] 500 - 1,000 mg PO Q6H PRN PRN 05/24/18 Divalproex Sodium [Depakote] 1,000 mg PO QHS 05/24/18 Hydrocodone Bitart/Apap 5-325 [[place] 5MG-325MG] 1 - 2 tablet PO Q6H PRN PRN 5 Days #40 tablet 09/13/18 The following prescriptions were given: Hydrocodone Bitart/Apap 5-325 [[place] 5MG-325MG] 1 - 2 tablet PO Q6H PRN PRN 5 Days #40 tablet PRN Reason: Pain Primary Care Physician: Lacy Roberson MD [Primary Care Provider] - Test Results: Test results from this visit will be discussed in further detail at your follow-up appointment, if applicable. Please Follow Up With: Leticia Richardson, - [phone] 09/13/18 6429 <Electronically signed by Leticia Richardson DO> Date Leticia Richardson DO CC: Lacy Roberson MD VITAMIN D 25 HYDROXY Collected: 09/11/2018 Status: F Source: [place] 9:25 AM [facility] REPOSITORY TYPE CODE TESTS RESULT OUT OF REFERENCE UNITS RANGE LAB VITD 31.0-80.0 ng/mL Low Vitamin D 25 20.3 Hydroxy Result Comment: Classification of 25 [place] Vitamin D status: Insufficiency/Moderate Deficiency: < or = 30 ng/mL Sufficiency/Optimal Levels: 31 to 80 ng/mL Toxicity: > 100 ng/mL Test performed by chemiluminescent immunoassay. Performed By: #### VITD, TSH #### [facility] [address] [place], [place] [address] TSH Collected: 09/11/2018 Status: F Source: [place] 9:25 AM [facility] REPOSITORY TYPE CODE TESTS RESULT OUT OF RANGE REFERENCE UNITS LAB TSH 0.400-5.500 uU/mL TSH 2.590 Performed By: #### VITD, TSH #### [facility] [address] [place] [address] VALPROIC ACID Collected: 09/11/2018 Status: F Source: [place] 9:25 AM [facility] REFERENCE REPOSITORY TYPE CODE TESTS RESULT OUT OF REFERENCE UNITS RANGE LAB VPA(LOINC) 50-100 ug/mL Low Valproic Acid 34.3 Performed By: #### VPA, CBCDIF, CMP, PROL #### [facility] Routine Lab [address] [place] [address] CBC AND DIFFERENTIAL Collected: 09/11/2018 Status: F Source: [place] 9:25 AM [facility] REFERENCE REPOSITORY TYPE CODE TESTS RESULT OUT OF REFERENCE UNITS RANGE LAB WBC(LOINC) 3.70-11.00 k/uL WBC 8.09 LAB RBC(LOINC) 4.20-6.00 m/uL RBC 4.84 LAB HGB(LOINC) 13.0-17.0 g/dL Hemoglobin 14.8 LAB HCT(LOINC) 39.0-51.0 % Hematocrit 44.1 LAB MCV(LOINC) 80.0-100.0 fL MCV 91.1 LAB MCH(LOINC) 26.0-34.0 pG MCH 30.6 LAB MCHC(LOINC 30.5-36.0 g/dL ) MCHC 33.6 LAB RDWCV(LOIN 11.5-15.0 % C) RDW-CV 13.7 LAB PLTCT(LOIN 150-400 k/uL C) Platelet Count 197 LAB MPV(LOINC) 9.0-12.7 fL MPV 11.6 LAB ANEUT(LOIN % C) Neut% 47.7 LAB AANEUT(JENNIFER 1.45-7.50 k/uL NC) Abs Neut 3.85 LAB ALYMP(LOIN % C) Lymph% 40.0 LAB AALYMP(JENNIFER 1.00-4.00 k/uL NC) Abs Lymph 3.24 LAB AMONO(LOIN % C) Simpson% 9.4 LAB AAMONO(JENNIFER <0.87 k/uL NC) Abs Simpson 0.76 LAB AEOS(LOINC % ) Eosin% 2.3 LAB AAEOS(LOIN <0.46 k/uL C) Abs Eosin 0.19 LAB ABASO(LOIN % C) Baso% 0.6 LAB AABASO(JENNIFER <0.11 k/uL NC) Abs Baso 0.05 LAB AUNRBC(JENNIFER 0 /100 WBC NC) NRBCs 0.0 LAB ABNRBC(JENNIFER <0.01 k/uL NC) Absolute nRBC <0.01 LAB DTYP(LOINC ) DTYPE ADIFF Performed By: #### VPA, CBCDIF, CMP, PROL #### [facility] Routine Lab [address] [place] [id number] COMP METABOLIC PANEL Collected: 09/11/2018 Status: F Source: [place] 9:25 AM CLINIC REFERENCE REPOSITORY TYPE CODE TESTS RESULT OUT OF REFERENCE UNITS RANGE LAB TP(LOINC) 6.3-8.0 g/dL Protein, Total 7.0 LAB ALB(LOINC) 3.9-4.9 g/dL Albumin 4.2 LAB CA(LOINC) 8.5-10.2 mg/dL Calcium, Total 9.0 LAB TBIL(LOINC 0.2-1.3 mg/dL ) Bilirubin, Total 0.2 LAB ALKP(LOINC 38-113 U/L ) Alkaline Phosphatase 71 LAB AST(LOINC) 14-40 U/L AST High 42 LAB GLU(LOINC) 74-99 mg/dL Glucose High 105 LAB BUN(LOINC) 9-24 mg/dL BUN 18 LAB CRET(LOINC 0.73-1.22 mg/dL ) Creatinine 0.80 LAB NA(LOINC) 136-144 mmol/L Sodium 140 LAB K(LOINC) 3.7-5.1 mmol/L Potassium 4.3 LAB CL(LOINC) 97-105 mmol/L Chloride 102 LAB CO2(LOINC) 22-30 mmol/L CO2 25 LAB AGAP(LOINC 9-18 mmol/L ) Anion Gap 13 LAB ALT(LOINC) 10-54 U/L ALT High 55 LAB GFRAA(LOIN C) eGFR- >60 Amer. LAB GFRNAA(JENNIFER . NC) eGFR-All Other Races >60 Performed By: #### VPA, CBCDIF, CMP, PROL #### [facility] Routine Lab [address] [place], [place] [address] PROLACTIN Collected: 09/11/2018 Status: F Source: [place] 9:25 AM CLINIC REFERENCE REPOSITORY TYPE CODE TESTS RESULT OUT OF REFERENCE UNITS RANGE LAB PROL(LOINC 4.0-15.2 ng/mL ) High Prolactin 25.5 Performed By: #### VPA, CBCDIF, CMP, PROL #### [facility] Routine Lab [address] [place], [place] [address] PROGRESS Observed: 09/11/2018 Status: COMPLETED Source: [place] 8:15 AM [facility] REPOSITORY HNO ID: [id number] Author: Lacy Roberson Service: (none) Author Type: Physician Type: Progress Notes Filed: 09/11/2018 8:47 AM Note Text: Reason for Visit Patient presents with: Established Patient: 3 month follow up Mckayla Solorzano II is a 38 year old male who presents here today for Above Complaints. Health Maintenance There are no preventive care reminders to display for this patient. HPI The patient would like to loose weight, he has back pain which the pain doctor notes only weight loss will help. He is tired and run down all the time, feels poorly about himself and this makes him depressed and makes his sex life poor. He is not able to play with his kids, not able to work and that is causing Him to be more sad and non productive and he feels very down and depressed. Reviewed bmp and hep panel , hiv all were normal. He is on risperidone and divalproex for bipolar related issues. We have not checked his tsh recently He cont the gabapentin, and robaxin , meloxicam for the different tkinds of pain he has. No problem-specific Assessment AND Plan notes found for this encounter. PAST MEDICAL HISTORY Diagnosis Date - ADHD (attention deficit hyperactivity disorder) - Anxiety - Chronic pain in shoulder left - Chronic pain of left elbow - Depression PAST SURGICAL HISTORY Procedure Laterality Date - CYST W/RESECT/INCISE EJAC DCT back - PAST SURGICAL HISTORY OF Laser removal of keloids in ear - PILONIDAL CYST/SINUS EXCISION - REMOVAL OF TONSILS,<12 Y/O Tonsillectomy FAMILY HISTORY Problem Relation Age of Onset - Cancer Father lung - Cancer Paternal Grandfather lung - Hypertension Father - other (a fib [Other]) Mother - Stroke Paternal Grandfather - Diabetes Maternal Grandfather Social History Substance Use Topics - Smoking status: Never Smoker - Smokeless tobacco: Never Used - Alcohol use No Past medical history, appointments, medications, allergies reviewed. Pertinent Lab/Diagnostic Studies are reviewed and discussed today Current Outpatient Prescriptions: - fluticasone (FLONASE) 50 mcg/actuation nasal spray - loratadine (CLARITIN) 10 mg tablet - meloxicam (MOBIC) 15 mg tablet - methocarbamol (ROBAXIN) 500 mg tablet - citalopram (CELEXA) 20 mg tablet - gabapentin (NEURONTIN) 600 mg tablet - omeprazole (PRILOSEC) 20 mg capsule - divalproex DR (DEPAKOTE) 500 mg EC tablet - risperiDONE (RISPERDAL) 1 mg tablet - COMPOUNDED PRESCRIPTION - triamcinolone acetonide (KENALOG) 10 mg/mL injection - fluticasone (FLONASE) 50 mcg/actuation nasal spray - albuterol HFA (VENTOLIN HFA) 90 mcg/actuation inhaler - VOLTAREN 1 % gel Review of Systems CONSTITUTIONAL: No fevers, chills night sweats, unintended weight loss CARDIOVASCULAR: No chest pain, dyspnea, palpitations, orthopnea, PND, ankle edema. PULM: No dyspnea, unexplained cough. GI: No dysphagia/odynophagia, problematic reflux, constipation, diarrhea, changes in stool habits, hematochezia, melena. : No new urinary complaints, including dysuria, gross hematuria or pyuria. NEURO: No new balance problems, peripheral weakness/paresthesias or numbness of concern. Physical Exam BP 136/80 (BP Site: Left Arm, BP Position: Sitting, BP Cuff Size: Large Adult) Resp 16 Ht 172.7 cm (5' 8) Wt (!) 160.1 kg (353 lb) BMI 53.67 kg/m? General appearance: Well appearing, alert, in no acute distress, well nourished. Skin: Skin color, texture, turgor normal, no suspicious rashes or lesions Head: Normocephalic, no masses, lesions, tenderness or abnormalities Eyes: Anicteric sclera. Pupils are equally round and reactive to light. Extraocular movements are intact. Lungs: Lungs clear to auscultation. No wheezing, rhonchi, rales Heart: RRR without murmur, gallop, or rubs. Extremities: No deformities, edema, skin discoloration, clubbing or cyanosis. Good capillary refill. ASSESSMENT/PLAN: 1. Morbid obesity (HCC) - ICD9: 278.01, ICD10: E66.01 (primary diagnosis) Discussed the improtance of this surgery for his over all well being, risk reduction and his quality of life. - [facility] Printed out info on basic of baritric surgery, the need for it and other related information 2. Vitamin D deficiency - ICD9: 268.9, ICD10: E55.9 - VITAMIN D 25 HYDROXY 3. Bipolar 1 disorder (HCC) - ICD9: 296.7, ICD10: F31.9 On divalporex, risperidol blood levels are being done to get it checked. LACY ROBERSON MD CNOV Observed: 09/11/2018 Status: COMPLETED Source: [place] 8:00 AM [facility] REPOSITORY Office Visit (INTMWS) MCKAYLA SOLORZANO II ([id number]) 1980 M Date Time Provider Department 09/11/18 8:00 AM LACY ROBERSON INTMWS During your visit today, we recorded the following information about you: Respiration Blood pressure Weight Height 16/minute 136/80 160.1 kg 1.727 m LACY ROBERSON MD 09/11/2018 8:47 AM Signed Reason for Visit Patient presents with: Established Patient: 3 month follow up Mckayla Solorzano II is a 38 year old male who presents here today for Above Complaints. Health Maintenance There are no preventive care reminders to display for this patient. HPI The patient would like to loose weight, he has back pain which the pain doctor notes only weight loss will help. He is tired and run down all the time, feels poorly about himself and this makes him depressed and makes his sex life poor. He is not able to play with his kids, not able to work and that is causing Him to be more sad and non productive and he feels very down and depressed. Reviewed bmp and hep panel , hiv all were normal. He is on risperidone and divalproex for bipolar related issues. We have not checked his tsh recently He cont the gabapentin, and robaxin , meloxicam for the different tkinds of pain he has. No problem-specific Assessment AND Plan notes found for this encounter. PAST MEDICAL HISTORY Diagnosis Date - ADHD (attention deficit hyperactivity disorder) - Anxiety - Chronic pain in shoulder left - Chronic pain of left elbow - Depression PAST SURGICAL HISTORY Procedure Laterality Date - CYST W/RESECT/INCISE EJAC DCT back - PAST SURGICAL HISTORY OF Laser removal of keloids in ear - PILONIDAL CYST/SINUS EXCISION - REMOVAL OF TONSILS,<12 Y/O Tonsillectomy FAMILY HISTORY Problem Relation Age of Onset - Cancer Father lung - Cancer Paternal Grandfather lung - Hypertension Father - other (a fib [Other]) Mother - Stroke Paternal Grandfather - Diabetes Maternal Grandfather Social History Substance Use Topics - Smoking status: Never Smoker - Smokeless tobacco: Never Used - Alcohol use No Past medical history, appointments, medications, allergies reviewed. Pertinent Lab/Diagnostic Studies are reviewed and discussed today Current Outpatient Prescriptions: - fluticasone (FLONASE) 50 mcg/actuation nasal spray - loratadine (CLARITIN) 10 mg tablet - meloxicam (MOBIC) 15 mg tablet - methocarbamol (ROBAXIN) 500 mg tablet - citalopram (CELEXA) 20 mg tablet - gabapentin (NEURONTIN) 600 mg tablet - omeprazole (PRILOSEC) 20 mg capsule - divalproex DR (DEPAKOTE) 500 mg EC tablet - risperiDONE (RISPERDAL) 1 mg tablet - COMPOUNDED PRESCRIPTION - triamcinolone acetonide (KENALOG) 10 mg/mL injection - fluticasone (FLONASE) 50 mcg/actuation nasal spray - albuterol HFA (VENTOLIN HFA) 90 mcg/actuation inhaler - VOLTAREN 1 % gel Review of Systems CONSTITUTIONAL: No fevers, chills night sweats, unintended weight loss CARDIOVASCULAR: No chest pain, dyspnea, palpitations, orthopnea, PND, ankle edema. PULM: No dyspnea, unexplained cough. GI: No dysphagia/odynophagia, problematic reflux, constipation, diarrhea, changes in stool habits, hematochezia, melena. : No new urinary complaints, including dysuria, gross hematuria or pyuria. NEURO: No new balance problems, peripheral weakness/paresthesias or numbness of concern. Physical Exam BP 136/80 (BP Site: Left Arm, BP Position: Sitting, BP Cuff Size: Large Adult) Resp 16 Ht 172.7 cm (5' 8) Wt (!) 160.1 kg (353 lb) BMI 53.67 kg/m? General appearance: Well appearing, alert, in no acute distress, well nourished. Skin: Skin color, texture, turgor normal, no suspicious rashes or lesions Head: Normocephalic, no masses, lesions, tenderness or abnormalities Eyes: Anicteric sclera. Pupils are equally round and reactive to light. Extraocular movements are intact. Lungs: Lungs clear to auscultation. No wheezing, rhonchi, rales Heart: RRR without murmur, gallop, or rubs. Extremities: No deformities, edema, skin discoloration, clubbing or cyanosis. Good capillary refill. ASSESSMENT/PLAN: 1. Morbid obesity (HCC) - ICD9: 278.01, ICD10: E66.01 (primary diagnosis) Discussed the improtance of this surgery for his over all well being, risk reduction and his quality of life. - [facility] Printed out info on basic of baritric surgery, the need for it and other related information 2. Vitamin D deficiency - ICD9: 268.9, ICD10: E55.9 - VITAMIN D 25 HYDROXY 3. Bipolar 1 disorder (HCC) - ICD9: 296.7, ICD10: F31.9 On divalporex, risperidol blood levels are being done to get it checked. LACY ROBERSON MD Referring Provider: SELF [200] Allergies As of Date: 09/11/2018 Noted Allergy Reaction BUTRANS (BUPRENORPHINE) 02/03/2016 14 - Other: See Comments Comments: Shallow breathing, itching PENICILLINS 07/22/2014 4 - Hives RITALIN (METHYLPHENIDATE ANALOGUE*07/22/2014 4 - Hives Date Reviewed: 09/11/2018 Reviewed by: Catherine Pop LPN - Fully Assessed Reason for Visit: Established Patient [175] Cmt: 3 month follow up Primary Visit Diagnosis:Morbid obesity (HCC) [E66.01] Other Visit Diagnoses:Vitamin D deficiency [E55.9] Bipolar 1 disorder (HCC) [F31.9] Order(s):[facility] [[id number]] Order #: [id number]: 1 TSH BLD [SQTSH] Order #: [id number] FUTURE VITAMIN D 25 HYDROXY [SQVITD] Order #: [id number] FUTURE Prescriptions as of 09/11/2018 Sig: FLUTICASONE 50 MCG/ACTUATION * Use 2 Sprays in each nostril * LORATADINE 10 MG TABLET Take 1 tablet by mouth once d* MELOXICAM 15 MG TABLET TAKE 1 TABLET BY MOUTH EVERY * METHOCARBAMOL 500 MG TABLET Take 1 tablet by mouth three * CITALOPRAM 20 MG TABLET TAKE 1 TABLET EVERY DAY GABAPENTIN 600 MG TABLET TAKE 1 TABLET AT BEDTIME OMEPRAZOLE 20 MG CAPSULE,GISSELLE* Take 1 capsule by mouth daily* DIVALPROEX 500 MG TABLET,GISSELLE* Take 1,000 mg by mouth daily * RISPERIDONE 1 MG TABLET Take 1 mg by mouth daily at b* COMPOUNDED PRESCRIPTION Why weight program at [facility] TRIAMCINOLONE ACETONIDE 10 MG* Intralesional kenalog 10 mg/m* FLUTICASONE 50 MCG/ACTUATION * Use 2 Sprays in each nostril * ALBUTEROL SULFATE HFA 90 MCG/* Inhale 2 Puffs as instructed * VOLTAREN 1 % TOPICAL GEL Problem List As Of Date 09/11/2018 Noted Resolved ADHD (attention deficit hyperactivity disorder)* More... Depression [F32.9] More... Anxiety [F41.9] More... Chronic pain in shoulder [M25.519, G89.29] More... Morbid obesity with BMI of 45.0-49.9, adult (HC*INVALID FOR* More... 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*INVALID FOR* Physical deconditioning [R53.81] INVALID FOR* Cervical myofascial strain [S16.1XXA] INVALID FOR* Cervicalgia [M54.2] INVALID FOR* Encounter Status:Closed by LACY ROBERSON MD on 09/11/18 ORTHOPEDIC VISIT Observed: 08/22/2018 Status: F Source: [place] REPORT 1:58 PM [facility] [place] REPOSITORY [facility] [address] [place] [address] OFFICE VISIT Date of Service: 08/22/18 MR#: [id number] Acct: [id number] Name: MCKAYLA SOLORZANO II Rep #: [id number] : 1980 Provider: Leticia Richardson DO Age/Sex: 37/M Location: [facility] [place] [place] Status: Signed Intake Intake Visit Reasons: LEFT KNEE Is patient in pain?: Yes Allergies buprenorphine [From Butrans] Allergy (Verified 08/22/18 10:52) Rash methylphenidate HCl [From Ritalin] Allergy (Verified 08/22/18 10:52) Hives Penicillins [PCN] Allergy (Verified 08/22/18 10:52) Hives Medications Omeprazole [Prilosec] 20 mg PO DAILY 08/28/15 [History Confirmed 05/24/18] Gabapentin [Neurontin] 600 mg PO DAILY 03/16/16 [History Confirmed 05/24/18] Methocarbamol [Robaxin] 500 mg PO TID 03/16/16 [History Confirmed 05/24/18] atomoxetine 60 mg capsule 60 mg PO QDAY 10/12/17 [History Confirmed 05/24/18] citalopram 20 mg tablet 20 mg PO QDAY 10/12/17 [History Confirmed 05/24/18] divalproex 500 mg tablet,delayed release 500 mg PO DAILY tab 10/12/17 [History Confirmed 05/24/18] risperidone 1 mg tablet 2 mg PO QHS 10/12/17 [History Confirmed 05/24/18] tramadol 50 mg tablet 50 mg PO Q6H PRN PRN 10/12/17 [History Confirmed 05/24/18] Acetaminophen [Tylenol Extra Strength] 500 - 1,000 mg PO Q6H PRN PRN 05/24/18 [History Confirmed 05/24/18] Divalproex Sodium [Depakote] 1,000 mg PO QHS 05/24/18 [History Confirmed 05/24/18] PFSH Medical History Chronic neck pain (Chronic) Chronic shoulder pain (Chronic) Surgical History S/P left knee arthroscopy (Acute) History of incision and drainage (Inactive) Family History Other Arthritis Cancer Hypertension Social History Smoking Status: Never smoker HPI LEFT KNEE: Details: MCKAYLA SOLORZANO is a 37 year old M here today for left knee pain. Patient notes that he has pain over his medial knee. Patient states that he has pain over his lateral knee at times. He has popping and clicking. Patient denies any swelling. Patient has instability frequently. Patient has a knee brace which is helpful. He has increased pain with all activities especially ambulation. He had an MRI which is here for review. He states that he would like to proceed with surgery. ROS Const Reports system reviewed and no additional complaints, except as docu Eyes Reports system reviewed and no additional complaints, except as docu ENT Reports system reviewed and no additional complaints, except as docu Card Reports system reviewed and no additional complaints, except as docu Resp Reports system reviewed and no additional complaints, except as docu GI Reports system reviewed and no additional complaints, except as docu Reports system reviewed and no additional complaints, except as docu Musc Reports joint pain, Reports stiffness Skin/Breast Reports system reviewed and no additional complaints, except as docu Neuro Yes system reviewed and no additional complaints, except as docu Psych Reports system reviewed and no additional complaints, except as docu Endo Reports system reviewed and no additional complaints, except as docu Ortho Exam Right Knee Patella Translation: 3 Left Knee Skin/Wound: Yes CDI Contralateral Normal: No Swelling: No Knee ROM: Yes ROM-Extension -20 to 0, Yes ROM-Flexion 0-140 Examination: Yes Pain with flexion Quad Atrophy: No Patella Translation: 3 Apprehension with Lateral Translation: Yes Patellar Tilt Normal: No Patella Grind: Yes Assessment AND Plan Problems 1. 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 Explained that [facility] will cover post op patients while on maternity leave and patient understands. Reviewed the pre-operative plans with the patient. Risks and benefits of the procedure were fully explained, including but not limited to infection, neurovascular injury, continued pain, arthritis, stiffness, need for further surgery, re-injury, DVT, PE, general risks of anesthesia, and loss of limb or life. The patient understands all the risks and does wish to proceed with written consent. Follow up postop or sooner if pain, swelling, numbness or associated symptoms, or concerns develop. All questions answered. Patient in agreement of plan. 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 States pain awoke him during the night. States has had mild ear pressure and decreased hearing to left ear for about a week. Denies recent URI sx, hx seasonal allergies. Has not taken any OTC medications. Review of Systems Constitutional: Negative for chills and fever. HENT: Positive for ear pain and hearing loss. Negative for congestion, ear discharge, sinus pain, sore throat and tinnitus. Respiratory: Negative for cough, sputum production, shortness of breath and wheezing. Cardiovascular: Negative for chest pain. Skin: Negative for rash. Neurological: Negative for headaches. Objective Physical Exam Constitutional: He is oriented to person, place, and time and well-developed, well-nourished, and in no distress. No distress. HENT: Head: Normocephalic. Right Ear: Hearing, external ear and ear canal normal. Tympanic membrane is not bulging. A middle ear effusion is present. Left Ear: Hearing, external ear and ear canal normal. Tympanic membrane is not erythematous and not bulging. A middle ear effusion is present. Nose: Nose normal. Mouth/Throat: Oropharynx is clear and moist. No oropharyngeal exudate. Eyes: Pupils are equal, round, and reactive to light. Conjunctivae are normal. Right eye exhibits no discharge. Left eye exhibits no discharge. Neck: Neck supple. Cardiovascular: Normal rate, regular rhythm and normal heart sounds. Exam reveals no gallop and no friction rub. No murmur heard. Pulmonary/Chest: Effort normal and breath sounds normal. No respiratory distress. He has no wheezes. He has no rales. Lymphadenopathy: He has no cervical adenopathy. Neurological: He is alert and oriented to person, place, and time. Skin: Skin is warm and dry. He is not diaphoretic. BP 126/74 Pulse 106 Temp 36.9 ?C (98.5 ?F) (Left Tympanic) Resp 20 Wt (!) 153.8 kg (339 lb) SpO2 97% BMI 51.54 kg/m? .Patient presents with: left ear pain: with sore throat x 1 day PAST MEDICAL HISTORY Diagnosis Date - ADHD (attention deficit hyperactivity disorder) - Anxiety - Chronic pain in shoulder left - Chronic pain of left elbow - Depression PAST SURGICAL HISTORY Procedure Laterality Date - CYST W/RESECT/INCISE EJAC DCT back - PAST SURGICAL HISTORY OF Laser removal of keloids in ear - PILONIDAL CYST/SINUS EXCISION - REMOVAL OF TONSILS,<12 Y/O Tonsillectomy ALLERGIES Butrans [Buprenorphine]; Penicillins; Ritalin [Methylphenidate Analogues] MEDICATIONS meloxicam (MOBIC) 15 mg tablet TAKE 1 TABLET BY MOUTH EVERY DAY methocarbamol (ROBAXIN) 500 mg tablet Take 1 tablet by mouth three times daily. citalopram (CELEXA) 20 mg tablet TAKE 1 TABLET EVERY DAY gabapentin (NEURONTIN) 600 mg tablet TAKE 1 TABLET AT BEDTIME omeprazole (PRILOSEC) 20 mg capsule Take 1 capsule by mouth daily before breakfast. divalproex DR (DEPAKOTE) 500 mg EC tablet Take 1,000 mg by mouth daily at bedtime risperiDONE (RISPERDAL) 1 mg tablet Take 1 mg by mouth daily at bedtime COMPOUNDED PRESCRIPTION Why weight program at [facility] triamcinolone acetonide (KENALOG) 10 mg/mL injection Intralesional kenalog 10 mg/ml injected to right ear lobe keloid and left ear helix keloid fluticasone (FLONASE) 50 mcg/actuation nasal spray Use 2 Sprays in each nostril once daily. Rinse mouth after use. loratadine (CLARITIN) 10 mg tablet Take 1 tablet by mouth once daily as needed. fluticasone (FLONASE) 50 mcg/actuation nasal spray Use 2 Sprays in each nostril once daily. for nasal congestion and runniness albuterol HFA (VENTOLIN HFA) 90 mcg/actuation inhaler Inhale 2 Puffs as instructed every 4 hours as needed for Wheezing/Shortness of Breath. VOLTAREN 1 % gel FAMILY HISTORY Problem Relation Age of Onset - Cancer Father lung - Cancer Paternal Grandfather lung - Hypertension Father - other (a fib [Other]) Mother - Stroke Paternal Grandfather - Diabetes Maternal Grandfather Social History Substance Use Topics - Smoking status: Never Smoker - Smokeless tobacco: Never Used - Alcohol use No ASSESSMENT/PLAN: 1. Middle ear effusion, bilateral - ICD9: 381.4, ICD10: H65.93 - Follow up if symptoms persist or worsen. - FLUTICASONE 50 MCG/ACTUATION NASAL SPRAY,SUSPENSION - LORATADINE 10 MG TABLET The patient is instructed to return or seek emergency treatment if symptoms become worse or with any acute change in condition. The patient verbalizes understanding and is in agreement with plan of care. Winifred Wen CNP CNOV Observed: 08/14/2018 Status: COMPLETED Source: [place] 4:45 PM [facility] REPOSITORY Office Visit (WSTR) MCKAYLA SOLORZANO II ([id number]) 1980 M Date Time Provider Department 08/14/18 4:45 PM WINIFRED WEN During your visit today, we recorded the following information about you: Temperature Pulse Respiration Blood pressure 98.5 degrees 106/minute 20/minute 126/74 Weight 153.8 kg Winifred FREDERIC Wen.HEALTH AND SAFETY TRAINER 08/14/2018 5:20 PM Signed Subjective HPI Pt presents with c/o 1 day hx left ear pain. States pain awoke him during the night. States has had mild ear pressure and decreased hearing to left ear for about a week. Denies recent URI sx, hx seasonal allergies. Has not taken any OTC medications. Review of Systems Constitutional: Negative for chills and fever. HENT: Positive for ear pain and hearing loss. Negative for congestion, ear discharge, sinus pain, sore throat and tinnitus. Respiratory: Negative for cough, sputum production, shortness of breath and wheezing. Cardiovascular: Negative for chest pain. Skin: Negative for rash. Neurological: Negative for headaches. Objective Physical Exam Constitutional: He is oriented to person, place, and time and well-developed, well-nourished, and in no distress. No distress. HENT: Head: Normocephalic. Right Ear: Hearing, external ear and ear canal normal. Tympanic membrane is not bulging. A middle ear effusion is present. Left Ear: Hearing, external ear and ear canal normal. Tympanic membrane is not erythematous and not bulging. A middle ear effusion is present. Nose: Nose normal. Mouth/Throat: Oropharynx is clear and moist. No oropharyngeal exudate. Eyes: Pupils are equal, round, and reactive to light. Conjunctivae are normal. Right eye exhibits no discharge. Left eye exhibits no discharge. Neck: Neck supple. Cardiovascular: Normal rate, regular rhythm and normal heart sounds. Exam reveals no gallop and no friction rub. No murmur heard. Pulmonary/Chest: Effort normal and breath sounds normal. No respiratory distress. He has no wheezes. He has no rales. Lymphadenopathy: He has no cervical adenopathy. Neurological: He is alert and oriented to person, place, and time. Skin: Skin is warm and dry. He is not diaphoretic. BP 126/74 Pulse 106 Temp 36.9 ?C (98.5 ?F) (Left Tympanic) Resp 20 Wt (!) 153.8 kg (339 lb) SpO2 97% BMI 51.54 kg/m? .Patient presents with: left ear pain: with sore throat x 1 day PAST MEDICAL HISTORY Diagnosis Date - ADHD (attention deficit hyperactivity disorder) - Anxiety - Chronic pain in shoulder left - Chronic pain of left elbow - Depression PAST SURGICAL HISTORY Procedure Laterality Date - CYST W/RESECT/INCISE EJAC DCT back - PAST SURGICAL HISTORY OF Laser removal of keloids in ear - PILONIDAL CYST/SINUS EXCISION - REMOVAL OF TONSILS,<13 Y/O Tonsillectomy ALLERGIES Butrans [Buprenorphine]; Penicillins; Ritalin [Methylphenidate Analogues] MEDICATIONS meloxicam (MOBIC) 15 mg tablet TAKE 1 TABLET BY MOUTH EVERY DAY methocarbamol (ROBAXIN) 500 mg tablet Take 1 tablet by mouth three times daily. citalopram (CELEXA) 20 mg tablet TAKE 1 TABLET EVERY DAY gabapentin (NEURONTIN) 600 mg tablet TAKE 1 TABLET AT BEDTIME omeprazole (PRILOSEC) 20 mg capsule Take 1 capsule by mouth daily before breakfast. divalproex DR (DEPAKOTE) 500 mg EC tablet Take 1,000 mg by mouth daily at bedtime risperiDONE (RISPERDAL) 1 mg tablet Take 1 mg by mouth daily at bedtime COMPOUNDED PRESCRIPTION Why weight program at [facility] triamcinolone acetonide (KENALOG) 10 mg/mL injection Intralesional kenalog 10 mg/ml injected to right ear lobe keloid and left ear helix keloid fluticasone (FLONASE) 50 mcg/actuation nasal spray Use 2 Sprays in each nostril once daily. Rinse mouth after use. loratadine (CLARITIN) 10 mg tablet Take 1 tablet by mouth once daily as needed. fluticasone (FLONASE) 50 mcg/actuation nasal spray Use 2 Sprays in each nostril once daily. for nasal congestion and runniness albuterol HFA (VENTOLIN HFA) 90 mcg/actuation inhaler Inhale 2 Puffs as instructed every 4 hours as needed for Wheezing/Shortness of Breath. VOLTAREN 1 % gel FAMILY HISTORY Problem Relation Age of Onset - Cancer Father lung - Cancer Paternal Grandfather lung - Hypertension Father - other (a fib [Other]) Mother - Stroke Paternal Grandfather - Diabetes Maternal Grandfather Social History Substance Use Topics - Smoking status: Never Smoker - Smokeless tobacco: Never Used - Alcohol use No ASSESSMENT/PLAN: 1. Middle ear effusion, bilateral - ICD9: 381.4, ICD10: H65.93 - Follow up if symptoms persist or worsen. - FLUTICASONE 50 MCG/ACTUATION NASAL SPRAY,SUSPENSION - LORATADINE 10 MG TABLET The patient is instructed to return or seek emergency treatment if symptoms become worse or with any acute change in condition. The patient verbalizes understanding and is in agreement with plan of care. Winifred Wen CNP Referring Provider: SELF [200] Allergies As of Date: 08/14/2018 Noted Allergy Reaction BUTRANS (BUPRENORPHINE) 02/03/2016 14 - Other: See Comments Comments: Shallow breathing, itching PENICILLINS 07/22/2014 4 - Hives RITALIN (METHYLPHENIDATE ANALOGUE*07/22/2014 4 - Hives Date Reviewed: 08/14/2018 Reviewed by: Noris Vazquez Ma - Fully Assessed Reason for Visit: left ear pain [Other] Cmt: with sore throat x 1 day Primary Visit Diagnosis:Middle ear effusion, bilateral [H65.93] Order(s):fluticasone (FLONASE) 50 mcg/actuation nasal sprayUse 2 Sprays in each nostril once daily. Rinse mouth after use.Disp: 1 BottleRfl: 1 loratadine (CLARITIN) 10 mg tabletTake 1 tablet by mouth once daily as needed.Disp: 30 tabletRfl: 2 Prescriptions as of 08/14/2018 Sig: MELOXICAM 15 MG TABLET TAKE 1 TABLET BY MOUTH EVERY * METHOCARBAMOL 500 MG TABLET Take 1 tablet by mouth three * CITALOPRAM 20 MG TABLET TAKE 1 TABLET EVERY DAY GABAPENTIN 600 MG TABLET TAKE 1 TABLET AT BEDTIME OMEPRAZOLE 20 MG CAPSULE,GISSELLE* Take 1 capsule by mouth daily* DIVALPROEX 500 MG TABLET,GISSELLE* Take 1,000 mg by mouth daily * RISPERIDONE 1 MG TABLET Take 1 mg by mouth daily at b* COMPOUNDED PRESCRIPTION Why weight program at [facility] TRIAMCINOLONE ACETONIDE 10 MG* Intralesional kenalog 10 mg/m* FLUTICASONE 50 MCG/ACTUATION * Use 2 Sprays in each nostril * LORATADINE 10 MG TABLET Take 1 tablet by mouth once d* FLUTICASONE 50 MCG/ACTUATION * Use 2 Sprays in each nostril * ALBUTEROL SULFATE HFA 90 MCG/* Inhale 2 Puffs as instructed * VOLTAREN 1 % TOPICAL GEL Problem List As Of Date 08/14/2018 Noted Resolved ADHD (attention deficit hyperactivity disorder)* More... Depression [F32.9] More... Anxiety [F41.9] More... Chronic pain in shoulder [M25.519, G89.29] More... Morbid obesity with BMI of 45.0-49.9, adult (HC*INVALID FOR* More... 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 Rinse mouth after use. LORATADINE 10 MG TABLET 30 t* 2 08/14/2018 Route: ORAL Sig: Take 1 tablet by mouth once daily as needed. Encounter Status:Closed by WINIFRED WEN CNP on 08/14/18 PROGRESS Observed: 07/04/2018 Status: COMPLETED Source: [place] 11:43 AM [facility] OTHER CAMPUS REPOSITORY HNO ID: [id number] Author: Sendy Garcia) REMBERTO Jackson Service: (none) Author Type: Clinical Home Care Scheduler Type: Progress Notes Filed: 07/04/2018 11:44 AM Note Text: NAME:Mckayla Solorzano HERIBERTO DATE: July 04, 2018 CCF#: [id number] Spine X-Ray(s): Lumbar AP / LAT / / OBL COMPLETED TECH ID SIGN: SHIRLEY WELCHRADHA XR LUMBAR PARS 4V Observed: 07/04/2018 Status: F Source: [place] AP/LAT/OBL X2 10:09 AM CLINIC OTHER CAMPUS REPOSITORY * * *Final Report* * * DATE OF EXAM: Jul 04 2018 10:09AM [facility] [id number] - XR LUMBAR PARS 4V AP/LAT/OBL X2 / PROCEDURE REASON: M54.16-Radiculopathy, lumbar region * * * * Physician Interpretation * * * * PROCEDURE: Lumbar spine INDICATION: Radiculopathy, lumbar region . TECHNIQUE: XR LUMBAR PARS 4V AP/LAT/OBL X2 COMPARISON: None FINDINGS: There is 5 mm anterolisthesis of L5 on S1. No fracture. Disc spaces are maintained. No pars defects are seen. Sacroiliac joints are unremarkable. IMPRESSION: Mild anterolisthesis at the lumbosacral junction Cook Helper Pastry: PSCB Transcribe Date/Time: Jul 04 2018 1:06P Dictated by : JABARI SAMUEL MD This examination was interpreted and the report reviewed and electronically signed by: JABARI SAMUEL MD on Jul 04 2018 1:07PM EST [id number] CNOV Observed: 07/04/2018 Status: COMPLETED Source: [place] 9:30 AM [facility] REPOSITORY Office Visit (PNMDNA) MCKAYLA SOLORZANO II ([id number]) 1980 M Date Time Provider Department 07/04/18 9:30 AM CHARY WELCH ([employer] [facility] [employer]) PNWYNA During your visit today, we recorded the following information about you: Pulse Weight 104/minute 151.5 kg Chary Welch APRN.CNP 07/04/2018 9:55 AM Signed SUBJECTIVE: Mckayla Solorzano II presents to [facility] Pain [facility] Department for a followup appointment for low back, neck and left shoulder pain. Since the last visit, Mckayla Solorzano II states the pain has been getting worse. Current pain intensity is 6 on a scale of 0-10. Pain located in Back, Neck and Left shoulder area and radiates to the left hip and leg. Pain described as aching The patient Reports morning stiffness, leg pain and leg weakness. Symptoms interfere with physical activity. Pain is exacerbated by standing, forward flexion, lifting, getting up from sitting and walking. Pain is mitigated by lying down. REVIEW OF SYSTEMS: Constitutional: (-) Fever (-) Night Sweats (-) Weight Gain (-) Weight Loss (+) Fatigue Cardiovascular: (-) Chest Pain (-) Palpitations (-) Lightheadedness (+) Swelling of Ankles (-) Hx Heart Surgery Respiratory: (-) Shortness of Breath (-) Cough (-) Wheezing (+) Snoring Gastrointestinal: (-) Incontinence (-) Abdominal Pain (-) Diarrhea (-) Constipation (-) Nausea/Vomiting (-) Heart Burn Endocrine: (-) Thyroid Disorder (-) Diabetes Hematologic: (-) Prolonged Bleeding (-) Easy Bruising Genitourinary: (-) Incontinence (-) Frequency (-) Urinary Urgency Skin: (-) Rashes (-) Itching (-) Other Lesions Neurologic: (-) Headache (-) Double Vision (-) Confusion (-) Paralysis Psychiatric: (+) Depression (+) Anxiety (-) Delusions (-) Hallucinations (-) Personal History of Alcohol or Substance Abuse (-) Family History of Alcohol or Substance Abuse OBJECTIVE: Pulse 104 Wt 334 lb (151.5kg) SpO2 99% PHYSICAL EXAMINATION: General appearance: Well appearing, in no acute distress, alert Skin: Skin color, texture, turgor normal, no rashes or lesions Neck: Tenderness to palpation over the left cervical paraspinous muscles. No pain with neck flexion, extension, or lateral flexion Cardiovascular: Regular rate Lungs: Normal respiratory rate and rhythm Abdomen: Abdomen soft and non-tender. Back: Intact range of motion with pain reproduction. Spine: Reports Tenderness on palpation: lumbar sacral, left side Extremities: No deformities, edema, or skin discoloration. Good capillary refill. Musculoskeletal: Bilateral upper and lower extremity strength is normal and symmetric. No atrophy or tone abnormalities are noted. Neuro: No loss of sensation is noted. Station and Gait: antalgic gait Motor: Exhibits full strength in all four extremities. Trigger points: none. ASSESSMENT: Assessment : Patient reports neck pain that radiates down the left lower extremity with numbness and tingling in the ring and pinky fingers Patient reports lower back pain that radiates laterally down the left lower extremity with aching and stabbing and intermittent numbness The pain in the lower back typically radiates to behind the knee but sometimes will radiate all the way down to the foot He has left shoulder and left knee pain He reports she saw orthopedics in [place] and he will be having surgery on his left knee in the next month or so Patient reports he completer water and physical therapy Patient receives tramadol, gabapentin 600 mg daily and Robaxin 3 times a day from outside providers to help manage his chronic pain Patient reports he has been unable to work due to his pain. Patient completed a functional capacity performance test and results were given at today's office visit Encounter Diagnosis ICD-10-CM 1. Cervical myofascial strain, initial encounter S16.1XXA 2. Cervicalgia M54.2 3. Cervical myofascial strain, sequela S16.1XXS 4. Radiculopathy, lumbar region M54.16 XR LUMBAR PARS DEFECT 4V AP/LAT/BOTH OBL PDMP website checked and validated. All prescriptions have been APPROPRIATELY filled. No suspicious activity was identified. 07/04/2018 by Teresa Romero MA Narcotic Agreement reviewed and signed?: N/A on July 04, 2018 The pain panel was N/A PLAN: 1) Patient was given a copy of the results of his functional capacity test 2) patient is planning to have surgery next month on his left knee by orthopedics in [place] 3) encouraged daily walking, exercising and stretching 4) ordered lumbar x-ray. Will have Dr. Ibarra review for further recommendations. Patient is interested in injection 5) continue tramadol when necessary, gabapentin 600 mg daily and Robaxin 500 mg 3 times a day that are prescribed by outside providers 6) RTC x6 months This note was partially generated using [employer] voice recognition system. The above plan and management options were discussed at length with patient. Patient is in agreement with the above and verbalized understanding. Chary Welch APRN, HEALTH AND SAFETY TRAINER July 04, 2018 Referring Provider: SELF [[id number]] Allergies As of Date: 07/04/2018 Noted Allergy Reaction BUTRANS (BUPRENORPHINE) 02/03/2016 14 - Other: See Comments Comments: Shallow breathing, itching PENICILLINS 07/22/2014 4 - Hives RITALIN (METHYLPHENIDATE ANALOGUE*07/22/2014 4 - Hives Date Reviewed: 07/04/2018 Reviewed by: Teresa Romero MA - Fully Assessed Reason for Visit: Established Patient [175] Low Back Pain [126] Left Shoulder [Other] Neck Pain [135] Primary Visit Diagnosis:Cervical myofascial strain, initial encounter [S16.1XXA] Other Visit Diagnoses:Cervicalgia [M54.2] Cervical myofascial strain, sequela [S16.1XXS] Radiculopathy, lumbar region [M54.16] Order(s):XR LUMBAR PARS DEFECT 4V AP/LAT/BOTH OBL [[id number]] Order #: [id number] FUTURE Prescriptions as of 07/04/2018 Sig: MELOXICAM 15 MG TABLET TAKE 1 TABLET EVERY DAY CITALOPRAM 20 MG TABLET TAKE 1 TABLET EVERY DAY OMEPRAZOLE 20 MG CAPSULE,GISSELLE* Take 1 capsule by mouth daily* DIVALPROEX 500 MG TABLET,GISSELLE* Take 1,000 mg by mouth daily * RISPERIDONE 1 MG TABLET Take 1 mg by mouth daily at b* METHOCARBAMOL 500 MG TABLET TAKE 1 TABLET THREE TIMES RUI* COMPOUNDED PRESCRIPTION Why weight program at [facility] TRIAMCINOLONE ACETONIDE 10 MG* Intralesional kenalog 10 mg/m* GABAPENTIN 600 MG TABLET TAKE 1 TABLET AT BEDTIME FLUTICASONE 50 MCG/ACTUATION * Use 2 Sprays in each nostril * ALBUTEROL SULFATE HFA 90 MCG/* Inhale 2 Puffs as instructed * VOLTAREN 1 % TOPICAL GEL Problem List As Of Date 07/04/2018 Noted Resolved ADHD (attention deficit hyperactivity disorder)* More... Depression [F32.9] More... Anxiety [F41.9] More... Chronic pain in shoulder [M25.519, G89.29] More... Morbid obesity with BMI of 45.0-49.9, adult (HC*INVALID FOR* More... 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*INVALID FOR* Physical deconditioning [R53.81] INVALID FOR* Cervical myofascial strain [S16.1XXA] INVALID FOR* Cervicalgia [M54.2] INVALID FOR* Encounter Status:Closed by CHARY WELCH on 9/18/18 PROGRESS Observed: 07/04/2018 Status: COMPLETED Source: [place] 9:25 AM [facility] REPOSITORY HNO ID: [id number] Author: Chary Dos Santos (Liz Welch Service: (none) Author Type: Nurse Practitioner Type: Progress Notes Filed: 07/04/2018 9:55 AM Note Text: SUBJECTIVE: Mckayla Solorzano II presents to [facility] Department for a followup appointment for low back, neck and left shoulder pain. Since the last visit, Mckayla Solorzano II states the pain has been getting worse. Current pain intensity is 6 on a scale of 0-10. Pain located in Back, Neck and Left shoulder area and radiates to the left hip and leg. Pain described as aching The patient Reports morning stiffness, leg pain and leg weakness. Symptoms interfere with physical activity. Pain is exacerbated by standing, forward flexion, lifting, getting up from sitting and walking. Pain is mitigated by lying down. REVIEW OF SYSTEMS: Constitutional: (-) Fever (-) Night Sweats (-) Weight Gain (-) Weight Loss (+) Fatigue Cardiovascular: (-) Chest Pain (-) Palpitations (-) Lightheadedness (+) Swelling of Ankles (-) Hx Heart Surgery Respiratory: (-) Shortness of Breath (-) Cough (-) Wheezing (+) Snoring Gastrointestinal: (-) Incontinence (-) Abdominal Pain (-) Diarrhea (-) Constipation (-) Nausea/Vomiting (-) Heart Burn Endocrine: (-) Thyroid Disorder (-) Diabetes Hematologic: (-) Prolonged Bleeding (-) Easy Bruising Genitourinary: (-) Incontinence (-) Frequency (-) Urinary Urgency Skin: (-) Rashes (-) Itching (-) Other Lesions Neurologic: (-) Headache (-) Double Vision (-) Confusion (-) Paralysis Psychiatric: (+) Depression (+) Anxiety (-) Delusions (-) Hallucinations (-) Personal History of Alcohol or Substance Abuse (-) Family History of Alcohol or Substance Abuse OBJECTIVE: Pulse 104 Wt 334 lb (151.5kg) SpO2 99% PHYSICAL EXAMINATION: General appearance: Well appearing, in no acute distress, alert Skin: Skin color, texture, turgor normal, no rashes or lesions Neck: Tenderness to palpation over the left cervical paraspinous muscles. No pain with neck flexion, extension, or lateral flexion Cardiovascular: Regular rate Lungs: Normal respiratory rate and rhythm Abdomen: Abdomen soft and non-tender. Back: Intact range of motion with pain reproduction. Spine: Reports Tenderness on palpation: lumbar sacral, left side Extremities: No deformities, edema, or skin discoloration. Good capillary refill. Musculoskeletal: Bilateral upper and lower extremity strength is normal and symmetric. No atrophy or tone abnormalities are noted. Neuro: No loss of sensation is noted. Station and Gait: antalgic gait Motor: Exhibits full strength in all four extremities. Trigger points: none. ASSESSMENT: Assessment : Patient reports neck pain that radiates down the left lower extremity with numbness and tingling in the ring and pinky fingers Patient reports lower back pain that radiates laterally down the left lower extremity with aching and stabbing and intermittent numbness The pain in the lower back typically radiates to behind the knee but sometimes will radiate all the way down to the foot He has left shoulder and left knee pain He reports she saw orthopedics in [place] and he will be having surgery on his left knee in the next month or so Patient reports he completer water and physical therapy Patient receives tramadol, gabapentin 600 mg daily and Robaxin 3 times a day from outside providers to help manage his chronic pain Patient reports he has been unable to work due to his pain. Patient completed a functional capacity performance test and results were given at today's office visit Encounter Diagnosis ICD-10-CM 1. Cervical myofascial strain, initial encounter S16.1XXA 2. Cervicalgia M54.2 3. Cervical myofascial strain, sequela S16.1XXS 4. Radiculopathy, lumbar region M54.16 XR LUMBAR PARS DEFECT 4V AP/LAT/BOTH OBL PDMP website checked and validated. All prescriptions have been APPROPRIATELY filled. No suspicious activity was identified. 07/04/2018 by Teresa Romero MA Narcotic Agreement reviewed and signed?: N/A on July 04, 2018 The pain panel was N/A PLAN: 1) Patient was given a copy of the results of his functional capacity test 2) patient is planning to have surgery next month on his left knee by orthopedics in [place] 3) encouraged daily walking, exercising and stretching 4) ordered lumbar x-ray. Will have Dr. Ibarra review for further recommendations. Patient is interested in injection 5) continue tramadol when necessary, gabapentin 600 mg daily and Robaxin 500 mg 3 times a day that are prescribed by outside providers 6) RTC x6 months This note was partially generated using [employer] voice recognition system. The above plan and management options were discussed at length with patient. Patient is in agreement with the above and verbalized understanding. Chary Welch APRN, HEALTH AND SAFETY TRAINER July 04, 2018 12 LEAD ELECTROCARDIOGRAM Observed: 05/26/2018 Status: F Source: [place] 2:03 PM [facility] REPOSITORY [facility] Cardiovascular Services [address] [place] [address] EKG - SDC 05/24/18 1322 MR#: [id number] Acct: [id number] Name: MCKAYLA SOLORZANO II Rep #: [id number] : 1980 37 From: Raffi Booth MD Attending Dr: Leticia Richardson DO Status: PRE SDC Ordering Dr: Jomar Britt MD Date: 05/24/18 Location: [facility] Sex: M C Admitted: Test Reason : Blood Pressure : / mmHG Vent. Rate : 093 BPM Atrial Rate : 093 BPM P-R Int : 152 ms QRS Dur : 096 ms QT Int : 364 ms P-R-T Axes : 032 020 037 degrees QTc Int : 452 ms Normal sinus rhythm Normal ECG Confirmed by LEOBARDO HUYNH, RAFFI ([id number]), scientific editor UMM MARTIN ([id number]) on 05/26/2018 2:02:56 PM Referred By: Leitcia Richardson Confirmed By:RAFFI BOOTH MD 05/26/18 1403 Date Raffi Booth MD CC: Leticia Richardson DO; Lacy Roberson MD; Jomar Britt MD Date Dictated: 05/24/181321 Date Transcribed: 05/24/181321 [employer]: Signed BASIC METABOLIC Collected: 05/24/2018 Status: F Source: [place] PROFILE (BMP) 2:51 PM [facility] REPOSITORY Order Comment: Comments: [id number] DRUG PANEL SERUM RTEMP TYPE CODE TESTS RESULT OUT OF RANGE REFERENCE UNITS LAB L501.0100 74-106 mg/dL Normal GLU 93 Result Comment: Please note revised GLUCOSE reference range effective 2017. LAB L501.1000 7-18 mg/dL Normal BUN 12 LAB L501.1100 0.70-1.30 mg/dL Normal CREAT,SERUM 0.87 Result Comment: The validity of the calculated GFR AND GFRAA in patients over 70 years has not been determined. Clinical correlation is essential. LAB L501.1110 >60 mL/min Normal EST GFR 105 Result Comment: Non- GFR Calc LAB L501.1115 >60 mL/min Normal EST GFR - AA 127 Result Comment: GFR Calc LAB L501.1255 ml/min Normal Estimated CRCL 113.56 LAB L501.1300 10-20 RATIO BUN/CRE Normal 13.7 LAB L501.2200 8.5-10 mg/dL .1 CA Normal 8.8 LAB L501.5300 136-14 mmol/L 5 NA Normal 143 LAB L501.5600 3.5-5. mmol/L 1 K Normal 4.1 LAB L501.5900 98-107 mmol/L CL Normal 105 LAB L501.6100 21.0-3 mmol/L 2.0 CO2 Normal 28.0 LAB L501.6200 5-15 GAP Normal 10 Performed By: #### L500.2500 #### [facility] [address] [facility] [address] HIV - [facility] Collected: 05/24/2018 Status: F Source: [place] 2:51 PM [facility] REPOSITORY TYPE CODE TESTS RESULT OUT OF RANGE REFERENCE UNITS LAB L3890.6005 Nonreactive Normal HIV - H Non-Reactive Performed By: #### L3890.6005 #### [facility] [address] [place], [place], [id number] HEPATITIS ABC PROFILE Collected: 05/24/2018 Status: F Source: [place] 2:51 PM [facility] REPOSITORY TYPE CODE TESTS RESULT OUT OF RANGE REFERENCE UNITS LAB L3100.0200 Negative Normal HEP A Negative IgM 6734 LAB L3100.0300 Negative Normal HEP A Negative AB,T.6726 LAB L3100.0400 Negative Normal HB Negative SURF AG LAB L3100.0440 Negative Normal HB Negative CORE [id number] LAB L3100.0460 Negative Normal HEP B Negative CORE,TOT LAB L3100.0510 . Normal Hep B Non Reactive Sunni AB Result Comment: Non Reactive: Inconsistent with immunity, less than 10 mIU/mL Reactive: Consistent with immunity, greater than 9.9 mIU/mL LAB L3100.0750 0.0-0.9 s/co ratio Normal HCV Ab 0.1 LAB L3100.0765 . Normal COMMENT Comment Result Comment: Non reactive HCV antibody screen is consistent with no HCV infection, unless recent infection is suspected or other evidence exists to indicate HCV infection. Performed at: [facility] [employer] [id number] Psychiatry Adult Physician: Delmer Martell PhD, Phone: [phone] Performed By: #### L3000.0700 #### [facility] (refer to report for specific site) refer to report for address and phone number MISCELLANEOUS LAB Collected: 05/24/2018 Status: F Source: [place] PROCEDURE 2:51 PM [facility] REPOSITORY Order Comment: Comments: [id number] DRUG PANEL SERUM RTEMP Test(s) Ordered: [id number] DRUG PANEL SERUM RTEMP TYPE CODE TESTS RESULT OUT OF RANGE REFERENCE UNITS LAB L801.[address] [facility] LAB TEST Result Comment: TEST RESULT LIMITS Drug Screen 13 w/Conf, Serum AMPHETAMINES, [place] Negative ng/mL Cutoff:50 BARBITURATES, IA Negative ug/mL Cutoff:0.1 BENZODIAZEPINES, [place] Negative ng/mL Cutoff:20 COCAINE / METABOLITE, [place] Negative ng/mL Cutoff:25 PHENCYCLIDINE, IA Negative ng/mL Cutoff:8 THC(MARIJUANA) METABOLITE, IA ++POSITIVE++ ng/mL Cutoff:5 OPIATES, IA Negative ng/mL Cutoff:5 OXYCODONES, IA Negative ng/mL Cutoff:5 METHADONE, IA Negative ng/mL Cutoff:25 FENTANYL, IA Negative ng/mL Cutoff:1.0 PROPOXYPHENE, IA Negative ng/mL Cutoff:50 MEPERIDINE, IA Negative ng/mL Cutoff:100 TRAMADOL, IA Negative ng/mL Cutoff:50 This test was developed and its performance characteristics determined by [employer]. It has not been cleared or approved by the Food and Drug Administration. THC,MS,WB/SP RFX Cannabinoid Confirmation Positive Tetrahydrocannabinol(THC) 1.2 ng/mL Carboxy-THC 53.0 ng/mL Hydroxy-THC 1.2 ng/mL Cannabinol Negative ng/mL Cannabidiol Negative ng/mL Confirmation threshold: 1.0 ng/mL TESTING PERFORMED AT [facility]. ORIGINAL REPORT ON FILE IN LAB CONTAINS ADDITIONAL TEST SITE INFORMATION. Performed By: #### L801.1541 #### [facility] [address] [place], [address] URIC ACID Collected: 05/17/2018 Status: F Source: [place] 10:37 AM [facility] REPOSITORY TYPE CODE TESTS RESULT OUT OF RANGE REFERENCE UNITS LAB URIC 4.0-8.1 mg/dL Uric Acid 7.3 Performed By: #### URIC #### [facility] [address] [place], [place] [address] PROGRESS Observed: 05/17/2018 Status: COMPLETED Source: [place] 9:55 AM [facility] REPOSITORY HNO ID: [id number] Author: Lacy Roberson Service: (none) Author Type: Physician Type: Progress Notes Filed: 05/17/2018 12:43 PM Note Text: Reason for Visit Patient presents with: Established Patient: c/o lightheadedness and left great toe pain at times Mckayla Solorzano II is a 37 year old male who presents here today for Above Complaints.. Health Maintenance INFLUENZA(1) HPI Has pain in the left and right great toe on and off, For many years but since the past 2 months he noticed it is getting worse. Today he has pain in the left foot, since today morning. Last night he had [employer] 3 medium pieces. He does not drink liquor much but does so once or twice a month. On May 31 he is having knee surgery. The goal is to go in and cut and break the bone and repair the cartilage. He is going to see counseling center for anxiety depression, ADHD. He gets bouts of anger. He is taking depakote for bipolar disease and it taking risperidol for seeing things- he notes dots and sqiggly lines. He feels tired all the time, does not feel rested even after a good nights sleep. Usually mid day early afternoon he feels light headed. He has a shake for lunch. No palpitations. He does take muslce relaxors 3 times a day. No problem-specific Assessment AND Plan notes found for this encounter. PAST MEDICAL HISTORY Diagnosis Date - ADHD (attention deficit hyperactivity disorder) - Anxiety - Chronic pain in shoulder left - Chronic pain of left elbow - Depression PAST SURGICAL HISTORY Procedure Laterality Date - CYST W/RESECT/INCISE EJAC DCT back - PAST SURGICAL HISTORY OF Laser removal of keloids in ear - PILONIDAL CYST/SINUS EXCISION - REMOVAL OF TONSILS,<12 Y/O Tonsillectomy FAMILY HISTORY Problem Relation Age of Onset - Cancer Father lung - Cancer Paternal Grandfather lung - Hypertension Father - a fib [Other] [OTHER] Mother - Stroke Paternal Grandfather - Diabetes Maternal Grandfather Social History Substance Use Topics - Smoking status: Never Smoker - Smokeless tobacco: Never Used - Alcohol use No Past medical history, appointments, medications, allergies reviewed. Pertinent Lab/Diagnostic Studies are reviewed and discussed today Current Outpatient Prescriptions: - meloxicam (MOBIC) 15 mg tablet - citalopram (CELEXA) 20 mg tablet - gabapentin (NEURONTIN) 600 mg tablet - omeprazole (PRILOSEC) 20 mg capsule - divalproex DR (DEPAKOTE) 500 mg EC tablet - risperiDONE (RISPERDAL) 1 mg tablet - methocarbamol (ROBAXIN) 500 mg tablet - COMPOUNDED PRESCRIPTION - triamcinolone acetonide (KENALOG) 10 mg/mL injection - fluticasone (FLONASE) 50 mcg/actuation nasal spray - albuterol HFA (VENTOLIN HFA) 90 mcg/actuation inhaler - VOLTAREN 1 % gel Review of Systems CONSTITUTIONAL: No fevers, chills night sweats, unintended weight loss CARDIOVASCULAR: No chest pain, dyspnea, palpitations, orthopnea, PND, ankle edema. PULM: No dyspnea, unexplained cough. GI: No dysphagia/odynophagia, problematic reflux, constipation, diarrhea, changes in stool habits, hematochezia, melena. : No new urinary complaints, including dysuria, gross hematuria or pyuria. NEURO: No new balance problems, peripheral weakness/paresthesias or numbness of concern. Physical Exam BP 128/72 (BP Site: Left Arm, BP Position: Sitting, BP Cuff Size: Large Adult) Pulse 81 Resp 16 Ht 172.7 cm (5' 8) Wt (!) 146.5 kg (323 lb) SpO2 96% BMI 49.11 kg/m? General appearance: Well appearing, alert, in no acute distress, well nourished. Skin: Skin color, texture, turgor normal, no suspicious rashes or lesions Head: Normocephalic, no masses, lesions, tenderness or abnormalities Eyes: Anicteric sclera. Pupils are equally round and reactive to light. Extraocular movements are intact. Lungs: Lungs clear to auscultation. No wheezing, rhonchi, rales Heart: RRR without murmur, gallop, or rubs. ASSESSMENT/PLAN: 1. ALEKSANDAR (obstructive sleep apnea) - ICD9: 327.23, ICD10: G47.33 (primary diagnosis) I think patient has sleep apnea - POLYSOMNOGRAM (PSG)/HOME SLEEP APNEA TESTING (HSAT) 2. Restless legs - ICD9: 333.94, ICD10: G25.81 - POLYSOMNOGRAM (PSG)/HOME SLEEP APNEA TESTING (HSAT) 3. Pain of left great toe - ICD9: 729.5, ICD10: M79.675 - URIC ACID BLOOD - POLYSOMNOGRAM (PSG)/HOME SLEEP APNEA TESTING (HSAT) MD DWAINE HERRERAOV Observed: 05/17/2018 Status: COMPLETED Source: [place] 9:20 AM [facility] REPOSITORY Office Visit (INTMWS) MCKAYLA SOLORZANO II ([id number]) 1980 M Date Time Provider Department 05/17/18 9:20 AM LACY ROBERSON During your visit today, we recorded the following information about you: Pulse Respiration Blood pressure Weight 81/minute 16/minute 128/72 146.5 kg Height 1.727 m LACY ROBERSON MD 05/17/2018 12:43 PM Signed Reason for Visit Patient presents with: Established Patient: c/o lightheadedness and left great toe pain at times Mckayla Solorzano II is a 37 year old male who presents here today for Above Complaints.. Health Maintenance INFLUENZA(1) HPI Has pain in the left and right great toe on and off, For many years but since the past 2 months he noticed it is getting worse. Today he has pain in the left foot, since today morning. Last night he had [employer] 3 medium pieces. He does not drink liquor much but does so once or twice a month. On May 31 he is having knee surgery. The goal is to go in and cut and break the bone and repair the cartilage. He is going to see counseling center for anxiety depression, ADHD. He gets bouts of anger. He is taking depakote for bipolar disease and it taking risperidol for seeing things- he notes dots and sqiggly lines. He feels tired all the time, does not feel rested even after a good nights sleep. Usually mid day early afternoon he feels light headed. He has a shake for lunch. No palpitations. He does take muslce relaxors 3 times a day. No problem-specific Assessment AND Plan notes found for this encounter. PAST MEDICAL HISTORY Diagnosis Date - ADHD (attention deficit hyperactivity disorder) - Anxiety - Chronic pain in shoulder left - Chronic pain of left elbow - Depression PAST SURGICAL HISTORY Procedure Laterality Date - CYST W/RESECT/INCISE EJAC DCT back - PAST SURGICAL HISTORY OF Laser removal of keloids in ear - PILONIDAL CYST/SINUS EXCISION - REMOVAL OF TONSILS,<12 Y/O Tonsillectomy FAMILY HISTORY Problem Relation Age of Onset - Cancer Father lung - Cancer Paternal Grandfather lung - Hypertension Father - a fib [Other] [OTHER] Mother - Stroke Paternal Grandfather - Diabetes Maternal Grandfather Social History Substance Use Topics - Smoking status: Never Smoker - Smokeless tobacco: Never Used - Alcohol use No Past medical history, appointments, medications, allergies reviewed. Pertinent Lab/Diagnostic Studies are reviewed and discussed today Current Outpatient Prescriptions: - meloxicam (MOBIC) 15 mg tablet - citalopram (CELEXA) 20 mg tablet - gabapentin (NEURONTIN) 600 mg tablet - omeprazole (PRILOSEC) 20 mg capsule - divalproex DR (DEPAKOTE) 500 mg EC tablet - risperiDONE (RISPERDAL) 1 mg tablet - methocarbamol (ROBAXIN) 500 mg tablet - COMPOUNDED PRESCRIPTION - triamcinolone acetonide (KENALOG) 10 mg/mL injection - fluticasone (FLONASE) 50 mcg/actuation nasal spray - albuterol HFA (VENTOLIN HFA) 90 mcg/actuation inhaler - VOLTAREN 1 % gel Review of Systems CONSTITUTIONAL: No fevers, chills night sweats, unintended weight loss CARDIOVASCULAR: No chest pain, dyspnea, palpitations, orthopnea, PND, ankle edema. PULM: No dyspnea, unexplained cough. GI: No dysphagia/odynophagia, problematic reflux, constipation, diarrhea, changes in stool habits, hematochezia, melena. : No new urinary complaints, including dysuria, gross hematuria or pyuria. NEURO: No new balance problems, peripheral weakness/paresthesias or numbness of concern. Physical Exam BP 128/72 (BP Site: Left Arm, BP Position: Sitting, BP Cuff Size: Large Adult) Pulse 81 Resp 16 Ht 172.7 cm (5' 8) Wt (!) 146.5 kg (323 lb) SpO2 96% BMI 49.11 kg/m? General appearance: Well appearing, alert, in no acute distress, well nourished. Skin: Skin color, texture, turgor normal, no suspicious rashes or lesions Head: Normocephalic, no masses, lesions, tenderness or abnormalities Eyes: Anicteric sclera. Pupils are equally round and reactive to light. Extraocular movements are intact. Lungs: Lungs clear to auscultation. No wheezing, rhonchi, rales Heart: RRR without murmur, gallop, or rubs. ASSESSMENT/PLAN: 1. ALEKSANDAR (obstructive sleep apnea) - ICD9: 327.23, ICD10: G47.33 (primary diagnosis) I think patient has sleep apnea - POLYSOMNOGRAM (PSG)/HOME SLEEP APNEA TESTING (HSAT) 2. Restless legs - ICD9: 333.94, ICD10: G25.81 - POLYSOMNOGRAM (PSG)/HOME SLEEP APNEA TESTING (HSAT) 3. Pain of left great toe - ICD9: 729.5, ICD10: M79.675 - URIC ACID BLOOD - POLYSOMNOGRAM (PSG)/HOME SLEEP APNEA TESTING (HSAT) LACY ROBERSON MD Referring Provider: SELF [200] Allergies As of Date: 05/17/2018 Noted Allergy Reaction BUTRANS (BUPRENORPHINE) 02/03/2016 14 - Other: See Comments Comments: Shallow breathing, itching PENICILLINS 07/22/2014 4 - Hives RITALIN (METHYLPHENIDATE ANALOGUE*07/22/2014 4 - Hives Date Reviewed: 05/17/2018 Reviewed by: Catherine Pop LPN - Fully Assessed Reason for Visit: Established Patient [175] Cmt: c/o lightheadedness and left great toe pain at times Primary Visit Diagnosis:ALEKSANDAR (obstructive sleep apnea) [G47.33] Other Visit Diagnoses:Restless legs [G25.81] Pain of left great toe [M79.675] Morbid obesity with BMI of 45.0-49.9, adult ([facility]) [E66.01, Z68.42] Order(s):URIC ACID BLOOD [SQURIC] Order #: [id number] FUTURE POLYSOMNOGRAM (PSG)/HOME SLEEP APNEA TESTING (HSAT) [[id number]] Order #: [id number] FUTURE Prescriptions as of 05/17/2018 Sig: MELOXICAM 15 MG TABLET TAKE 1 TABLET EVERY DAY CITALOPRAM 20 MG TABLET TAKE 1 TABLET EVERY DAY GABAPENTIN 600 MG TABLET TAKE 1 TABLET AT BEDTIME OMEPRAZOLE 20 MG CAPSULE,GISSELLE* Take 1 capsule by mouth daily* DIVALPROEX 500 MG TABLET,GISSELLE* Take 1,000 mg by mouth daily * RISPERIDONE 1 MG TABLET Take 1 mg by mouth daily at * METHOCARBAMOL 500 MG TABLET TAKE 1 TABLET THREE TIMES RUI* COMPOUNDED PRESCRIPTION Why weight program at [facility] TRIAMCINOLONE ACETONIDE 10 MG* Intralesional kenalog 10 mg/m* FLUTICASONE 50 MCG/ACTUATION * Use 2 Sprays in each nostril * ALBUTEROL SULFATE HFA 90 MCG/* Inhale 2 Puffs as instructed * VOLTAREN 1 % TOPICAL GEL Problem List As Of Date 05/17/2018 Noted Resolved ADHD (attention deficit hyperactivity disorder)* More... Depression [F32.9] More... Anxiety [F41.9] More... Chronic pain in shoulder [M25.519, G89.29] More... Morbid obesity with BMI of 45.0-49.9, adult (HC*INVALID FOR* More... 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*INVALID FOR* Physical deconditioning [R53.81] INVALID FOR* Cervical myofascial strain [S16.1XXA] INVALID FOR* Cervicalgia [M54.2] INVALID FOR* Encounter Status:Closed by LACY ROBERSON MD on 05/17/18 ORTHOPEDIC VISIT Observed: 05/16/2018 Status: F Source: [place] REPORT 10:47 AM [facility] [place] REPOSITORY [facility] [address] [place] [id number] OFFICE VISIT Date of Service: 05/09/18 MR#: [id number] Acct: [id number] Name: MCKAYLA SOLORZANO II Rep #: [id number] : 1980 Provider: Leticia Richardson DO Age/Sex: 37/M Location: [facility] Status: Signed Intake Intake Visit Reasons: CK KNEE PAIN Is patient in pain?: Yes Pain scale (1-10): 5 Allergies buprenorphine [From Butrans] Allergy (Verified 10/12/17 12:30) Rash methylphenidate HCl [From Ritalin] Allergy (Verified 10/12/17 12:30) Hives Penicillins [PCN] Allergy (Verified 10/12/17 12:30) Hives Medications Omeprazole [Prilosec] 20 mg PO DAILY 08/28/15 [History Confirmed 10/12/17] Gabapentin [Neurontin] 600 mg PO DAILY 03/16/16 [History Confirmed 10/12/17] Methocarbamol [Robaxin] 500 mg PO TID 03/16/16 [History Confirmed 10/12/17] atomoxetine 60 mg capsule 60 mg PO QDAY 10/12/17 [History Confirmed 10/12/17] citalopram 20 mg tablet 20 mg PO QDAY 10/12/17 [History Confirmed 10/12/17] divalproex 500 mg tablet,delayed release 500 mg PO ONCE tab 10/12/17 [History Confirmed 10/12/17] risperidone 1 mg tablet 1 mg PO ONCE 10/12/17 [History Confirmed 10/12/17] tramadol 50 mg tablet 50 mg PO Q6H 10/12/17 [History Confirmed 10/12/17] PFSH Medical History Chronic neck pain (Chronic) Chronic shoulder pain (Chronic) Surgical History S/P left knee arthroscopy (Acute) History of incision and drainage (Inactive) Family History Other Arthritis Cancer Hypertension Social History Smoking Status: Never smoker HPI CK KNEE PAIN: Details: MCKAYLA SOLORZANO II is a 37 year old M here today for increasing left knee pain. He is wearing an OTC knee brace. He is using OTC nsaids and tramadol but he is out of it now. He feels like his knee is going to give out on him even in the brace and he has popping and clicking. He feels better with rest but needs to be more active with his family. Denies numbness, tingling or other associated symptoms. ROS Musc Reports as per HPI, Reports joint pain, Reports muscle weakness Ortho Exam Left Knee Skin/Wound: Yes CDI Contralateral Normal: Yes Swelling: No Homans Sign: No Knee ROM: Yes ROM-Extension -20 to 0, Yes ROM-Flexion 0-140 (120) Examination: Yes Crepitus, Yes Pain with flexion, Yes med jt line tenderness Quad Atrophy: No Assessment AND Plan 1. 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 patient will sign on 05/24. Reviewed the TTO procedure and trial of a brace. He would be nwb for approximately 6wks. Reviewed all post op restrictions and the overnight stay in the hospital. Explained that the TTO will only be beneficial if there is enough cartilage and he would benefit from a partial lateral release Reviewed the pre-operative plans with the patient. Risks and benefits of the procedure were fully explained, including but not limited to infection, neurovascular injury, continued pain, arthritis, stiffness, need for further surgery, re-injury, DVT, PE, general risks of anesthesia, and loss of limb or life. The patient understands all the risks and does wish to proceed with written consent. Follow up post op or sooner if pain, swelling, numbness or associated symptoms, or concerns develop. All questions answered. Patient in agreement of plan. 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 05/16/18 1047 <Electronically signed by Leticia Richardson DO> Date Leticia Richardson DO Cosigner Signature: Date (if applicable) CC: PROGRESS Observed: 05/10/2018 Status: COMPLETED Source: [place] 4:45 PM [facility] OTHER CAMPUS REPOSITORY O ID: [id number] Author: Jama (Pt) Elvie Service: (none) Author Type: Physical Therapist Type: Progress Notes Filed: 05/10/2018 4:49 PM Note Text: Episode Visit Count: 1 Therapist That Will Oversee The Plan Of Care: Jama Anderson Start of Care Date: 05/10/18 Patient Identified by Name and Date of : Yes [facility] THER[facility] PHYSICAL CAPACITY EVALUATION Mckayla Solorzano HERIBERTO [id number] 05/10/2018 Casting Agent: Jama Anderson, PT Referring Physician: Raffi Ibarra MD DIAGNOSIS: Cervicalgia (primary encounter diagnosis) Cervical myofascial strain, initial encounter PURPOSE OF THIS EVALUATION : This evaluation was designed to Determine if client exhibits full physical effort Determine if client's reports of disability and pain are reliable Determine client's physical abilities and tolerances. The client was instructed in the purpose and contents of the evaluation before testing. The client was informed of his ability and responsibility to modify, limit, or refuse any part of the evaluation. Functional Capacity Evaluation completed today. See scanned document tab for complete detailed report. Summary cover letter included below. Education: Learning preferences: Explanation and Demonstration Barriers: No barriers Learning/educational needs: Procedure / Surgery Functional Capacity Evaluation Education Provided: See Treatment Below Audience: Patient Method of education: Explanation and Demonstration Response: Verbalized understanding Billing: Diana: Physical Performance Test (and doc) ([id number]): 1:1 time: 160 minutes (11 units) Total time: 160 minutes Jama Anderson PT CNTHERAPY Observed: 05/10/2018 Status: COMPLETED Source: [place] 1:30 PM CLINIC OTHER CAMPUS REPOSITORY OT/PT/Speech Visit (PTMCRM) MCKAYLA SOLORZANO II ([id number]) 1980 M Date Time Provider Department 05/10/18 1:30 PM JAMA ANDERSON (PT) [facility] Date Time Provider Department Center 05/10/2018 1:30 PM [id number], REBECCA *[facility] Reason for Visit: Functional Capacity Eval [1009] Patient Education [91] PT Discharge [752] Primary Visit Diagnosis:Cervicalgia [M54.2] Other Visit Diagnosis:Cervical myofascial strain, initial encounter [S16.1XXA] Allergies As of Date: 05/10/2018 Noted Allergy Reaction BUTRANS (BUPRENORPHINE) 02/03/2016 14 - Other: See Comments Comments: Shallow breathing, itching PENICILLINS 07/22/2014 4 - Hives RITALIN (METHYLPHENIDATE ANALOGUE*07/22/2014 4 - Hives Date Reviewed: 03/22/2018 Reviewed by: Shirley Mosher Ma - Fully Assessed Prescriptions as of 05/10/2018 Sig: MELOXICAM 15 MG TABLET TAKE 1 TABLET EVERY DAY CITALOPRAM 20 MG TABLET TAKE 1 TABLET EVERY DAY GABAPENTIN 600 MG TABLET TAKE 1 TABLET AT BEDTIME OMEPRAZOLE 20 MG CAPSULE,GISSELLE* Take 1 capsule by mouth daily* DIVALPROEX 500 MG TABLET,GISSELLE* Take 1,000 mg by mouth daily * RISPERIDONE 1 MG TABLET Take 1 mg by mouth daily at b* METHOCARBAMOL 500 MG TABLET TAKE 1 TABLET THREE TIMES RUI* COMPOUNDED PRESCRIPTION Why weight program at [facility] TRIAMCINOLONE ACETONIDE 10 MG* Intralesional kenalog 10 mg/m* FLUTICASONE 50 MCG/ACTUATION * Use 2 Sprays in each nostril * ALBUTEROL SULFATE HFA 90 MCG/* Inhale 2 Puffs as instructed * VOLTAREN 1 % TOPICAL GEL Progress Notes: Jama Anderson PT 05/10/2018 4:49 PM Signed Episode Visit Count: 1 Therapist That Will Oversee The Plan Of Care: Jama Anderson Start of Care Date: 05/10/18 Patient Identified by Name and Date of : Yes [facility] THERAPY PHYSICAL CAPACITY EVALUATION Mckayla Solorzano II [id number] 05/10/2018 Casting Agent: Jama Anderson PT Referring Physician: Raffi Ibarra MD DIAGNOSIS: Cervicalgia (primary encounter diagnosis) Cervical myofascial strain, initial encounter PURPOSE OF THIS EVALUATION : This evaluation was designed to Determine if client exhibits full physical effort Determine if client's reports of disability and pain are reliable Determine client's physical abilities and tolerances. The client was instructed in the purpose and contents of the evaluation before testing. The client was informed of his ability and responsibility to modify, limit, or refuse any part of the evaluation. Functional Capacity Evaluation completed today. See scanned document tab for complete detailed report. Summary cover letter included below. Education: Learning preferences: Explanation and Demonstration Barriers: No barriers Learning/educational needs: Procedure / Surgery Functional Capacity Evaluation Education Provided: See Treatment Below Audience: Patient Method of education: Explanation and Demonstration Response: Verbalized understanding Billing: Diana: Physical Performance Test (and doc) ([id number]): 1:1 time: 160 minutes (11 units) Total time: 160 minutes Jama Anderson, ANA LUIS Observed: 03/22/2018 Status: COMPLETED Source: [place] 2:00 PM [facility] [place] REPOSITORY Office Visit (INTMWS) MCKAYLA SOLORZANO II ([id number]) 1980 M Date Time Provider Department 03/22/18 2:00 PM TONY PEDROZA ([facility]) INTMWS During your visit today, we recorded the following information about you: Temperature Pulse Respiration Blood pressure 96.3 degrees 88/minute 16/minute 126/76 Weight 143.3 kg Tony Pedroza APRN.CNP 03/22/2018 2:25 PM Signed CC: Mckayla Solorzano II is a 37 year old male who presents for weight loss medication follow up. HPI Currently taking Adipex. Starting Month 3 of 3 Denies: abdominal pain, nausea, vomiting, diarrhea, fevers, constipation, headache, change in urination, lightheadedness, weakness, numbness or tingling to arms or legs, edema, palpitations, sleep disturbances, impairment of concentration/attention, difficulty with memory, speech or language problems (particularly word-finding difficulties). If DM any hypo/hyperglycemiaNot applicable DIET Serving of fruits:1-2 Servings of vegetables:1-2 Servings of protein:3-5 Fluid intake:Water: 6 glasses per day Juice: 3-5 glasses per day Energy drink: few times per week Do you Skip meals:NO Which meals do you tend to skip? None Food Behaviors: portion control Eating away from home:NO Nutrition consult placed Yes, appointment 03/06/18 Exercise routine: No Program: except he walks his dog1-2x per day and continues to increase the distance as tolerated. Patient also has appointment with his orthopedic doctor to discuss a brace for his knee so that he may participate in regular exercise Weight/BMI Last 1 Encounter Wt Readings: Date: Wt: 03/06/2018 143.3 kg (316 lb) BMI 48.05 kg/(m2) Last visit Wt: 143.3 kg (316 lb) BMI: 48.05 kg/(m2) Weight change since last visit: How much: 22 lbs How lon month Percent of Weight Loss: 6.5% Over 2 months ROS as above, otherwise non-contributory. Reviewed PMHx, PSHx, social Hx, medications and allergies. PHYSICAL EXAM BP 126/76 Pulse 105 Temp (!) 35.7 ?C (96.3 ?F) (Temporal Artery) Resp 16 Wt (!) 143.3 kg (316 lb) SpO2 95% BMI 48.05 kg/m? General Appearance: well appearing, in no acute distress, alert Pysch: mood and affect broad and appropriate Skin: Skin color, texture, turgor normal for age; Lungs: Lungs clear to auscultation. No wheezing, rhonchi, rales Heart: RRR without murmur, gallop, or rubs. No ectopy ASSESSMENT/PLAN: 1. Morbid obesity (HCC) - ICD9: 278.01, ICD10: E66.01 - PHENTERMINE 37.5 MG TABLET - Continue diet per dietitian recommendations. - Reduce sugary drinks of artificial juices and sodas and replace with water and low calorie Crystal Light. Discussed cutting juice serving in half and adding water - Healthy Snack alternatives have been discussed and will attempt more fruits and vegetables. - encouraged 3 meals a day - Continueexercise or meaningful activity for 20 minutes at lest 3 times a day [employer] website checked and validated. All prescriptions have been APPROPRIATELY filled. No suspicious activity was identified.- 03/22/2018 by Tony Pedroza APRN.HEALTH AND SAFETY TRAINER - reviewed SE, medication expectations, required weight loss of 5%, monthly monitoring and medication duration of use (3 months on 6 months off) Prescription instructions reviewed with patient as applicable. Potential red flag symptoms discussed with the patient. Reviewed appropriate action plan to take if red flag symptoms occur. Patient agreeable to treatment plan. Tony Pedroza APRN.HEALTH AND SAFETY TRAINER Referring Provider: SELF [200] Allergies As of Date: 03/22/2018 Noted Allergy Reaction BUTRANS (BUPRENORPHINE) 02/03/2016 14 - Other: See Comments Comments: Shallow breathing, itching PENICILLINS 07/22/2014 4 - Hives RITALIN (METHYLPHENIDATE ANALOGUE*07/22/2014 4 - Hives Date Reviewed: 03/22/2018 Reviewed by: Shirley Mosher Ma - Fully Assessed Reason for Visit: Recheck [92] Cmt: Adipex follow up Visit Diagnosis:Morbid obesity (HCC) [E66.01] Order(s):Phentermine HCl (ADIPEX-P) 37.5 mg tabletTake 1 tablet by mouth once daily for 30 days.Disp: 30 tabletRfl: 0 Prescriptions as of 03/22/2018 Sig: PHENTERMINE 37.5 MG TABLET Take 1 tablet by mouth once d* CITALOPRAM 20 MG TABLET TAKE 1 TABLET EVERY DAY GABAPENTIN 600 MG TABLET TAKE 1 TABLET AT BEDTIME OMEPRAZOLE 20 MG CAPSULE,GISSELLE* Take 1 capsule by mouth daily* MELOXICAM 15 MG TABLET TAKE 1 TABLET EVERY DAY DIVALPROEX 500 MG TABLET,GISSELLE* Take 1,000 mg by mouth daily * RISPERIDONE 1 MG TABLET Take 1 mg by mouth daily at b* METHOCARBAMOL 500 MG TABLET TAKE 1 TABLET THREE TIMES RUI* COMPOUNDED PRESCRIPTION Why weight program at [facility] TRIAMCINOLONE ACETONIDE 10 MG* Intralesional kenalog 10 mg/m* FLUTICASONE 50 MCG/ACTUATION * Use 2 Sprays in each nostril * ALBUTEROL SULFATE HFA 90 MCG/* Inhale 2 Puffs as instructed * VOLTAREN 1 % TOPICAL GEL Problem List As Of Date 03/22/2018 Noted Resolved ADHD (attention deficit hyperactivity disorder)* More... Depression [F32.9] More... Anxiety [F41.9] More... Chronic pain in shoulder [M25.519, G89.29] More... Morbid obesity with BMI of 45.0-49.9, adult (HC*INVALID FOR* More... 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 Medications Discontinued During This Encounter Phentermine HCl (ADIPEX-P) 37.5 mg t* 30 t* 0 02/17/2018 03/22/2018 Class: Print RX Route: ORAL Sig: Take 1 tablet by mouth once daily for 30 days. Disc: Reason for discontinue is not on file. Encounter Status:Closed by TONY PEDROZA CNP on 03/22/18 PROGRESS Observed: 03/22/2018 Status: COMPLETED Source: [place] 1:53 PM [facility] MAIN CAMPUS REPOSITORY HNO ID: [id number] Author: Tony (Magui) Arvind Service: (none) Author Type: Nurse Practitioner Type: Progress Notes Filed: 03/22/2018 2:25 PM Note Text: CC: Mckayla Solorzano II is a 37 year old male who presents for weight loss medication follow up. HPI Currently taking Adipex. Starting Month 3 of 3 Denies: abdominal pain, nausea, vomiting, diarrhea, fevers, constipation, headache, change in urination, lightheadedness, weakness, numbness or tingling to arms or legs, edema, palpitations, sleep disturbances, impairment of concentration/attention, difficulty with memory, speech or language problems (particularly word-finding difficulties). If DM any hypo/hyperglycemiaNot applicable DIET Serving of fruits:1-2 Servings of vegetables:1-2 Servings of protein:3-5 Fluid intake:Water: 6 glasses per day Juice: 3-5 glasses per day Energy drink: few times per week Do you Skip meals:NO Which meals do you tend to skip? None Food Behaviors: portion control Eating away from home:NO Nutrition consult placed Yes, appointment 03/06/18 Exercise routine: No Program: except he walks his dog1-2x per day and continues to increase the distance as tolerated. Patient also has appointment with his orthopedic doctor to discuss a brace for his knee so that he may participate in regular exercise Weight/BMI Last 1 Encounter Wt Readings: Date: Wt: 03/06/2018 143.3 kg (316 lb) BMI 48.05 kg/(m2) Last visit Wt: 143.3 kg (316 lb) BMI: 48.05 kg/(m2) Weight change since last visit: How much: 22 lbs How lon month Percent of Weight Loss: 6.5% Over 2 months ROS as above, otherwise non-contributory. Reviewed PMHx, PSHx, social Hx, medications and allergies. PHYSICAL EXAM BP 126/76 Pulse 105 Temp (!) 35.7 ?C (96.3 ?F) (Temporal Artery) Resp 16 Wt (!) 143.3 kg (316 lb) SpO2 95% BMI 48.05 kg/m? General Appearance: well appearing, in no acute distress, alert Pysch: mood and affect broad and appropriate Skin: Skin color, texture, turgor normal for age; Lungs: Lungs clear to auscultation. No wheezing, rhonchi, rales Heart: RRR without murmur, gallop, or rubs. No ectopy ASSESSMENT/PLAN: 1. Morbid obesity (HCC) - ICD9: 278.01, ICD10: E66.01 - PHENTERMINE 37.5 MG TABLET - Continue diet per dietitian recommendations. - Reduce sugary drinks of artificial juices and sodas and replace with water and low calorie Crystal Light. Discussed cutting juice serving in half and adding water - Healthy Snack alternatives have been discussed and will attempt more fruits and vegetables. - encouraged 3 meals a day - Continueexercise or meaningful activity for 20 minutes at lest 3 times a day [employer] website checked and validated. All prescriptions have been APPROPRIATELY filled. No suspicious activity was identified.- 03/22/2018 by Tony Pedroza APRN.MAGUI - reviewed SE, medication expectations, required weight loss of 5%, monthly monitoring and medication duration of use (3 months on 6 months off) Prescription instructions reviewed with patient as applicable. Potential red flag symptoms discussed with the patient. Reviewed appropriate action plan to take if red flag symptoms occur. Patient agreeable to treatment plan. Tony Pedroza APRN.MAGUI CNTHERAPY Observed: 03/08/2018 Status: COMPLETED Source: [place] 2:15 PM CLINIC OTHER CAMPUS REPOSITORY OT/PT/Speech Visit (PTMCRM) MCKAYLA SOLORZANO II ([id number]) 1980 M Date Time Provider Department 03/08/18 2:15 PM [facility] Time Provider Department Center 03/08/2018 2:15 PM [id number], REBECCA *PTMCRM [facility] Reason for Visit: Appointment Cancelled [1023] Reason For Visit History Recorded Primary Visit Diagnosis:APPOINTMENT CANCELLED Allergies As of Date: 03/08/2018 Noted Allergy Reaction BUTRANS (BUPRENORPHINE) 02/03/2016 14 - Other: See Comments Comments: Shallow breathing, itching PENICILLINS 07/22/2014 4 - Hives RITALIN (METHYLPHENIDATE ANALOGUE*07/22/2014 4 - Hives Date Reviewed: 03/06/2018 Reviewed by: Mikayla (Rd) Thom - Fully Assessed Prescriptions as of 03/08/2018 Sig: PHENTERMINE 37.5 MG TABLET Take 1 tablet by mouth once d* GABAPENTIN 600 MG TABLET TAKE 1 TABLET AT BEDTIME CITALOPRAM 20 MG TABLET TAKE 1 TABLET EVERY DAY MELOXICAM 15 MG TABLET TAKE 1 TABLET EVERY DAY DIVALPROEX 500 MG TABLET,GISSELLE* Take 1,000 mg by mouth daily * RISPERIDONE 1 MG TABLET Take 1 mg by mouth daily at * METHOCARBAMOL 500 MG TABLET TAKE 1 TABLET THREE TIMES RUI* COMPOUNDED PRESCRIPTION Why weight program at [facility] OMEPRAZOLE 20 MG CAPSULE,GISSELLE* Take 1 capsule by mouth daily* TRIAMCINOLONE ACETONIDE 10 MG* Intralesional kenalog 10 mg/m* FLUTICASONE 50 MCG/ACTUATION * Use 2 Sprays in each nostril * ALBUTEROL SULFATE HFA 90 MCG/* Inhale 2 Puffs as instructed * VOLTAREN 1 % TOPICAL GEL Progress Notes: Jama Anderson, PT 03/08/2018 11:10 AM Signed The appointment was cancelled for this patient. Patient called to cancel appointment for today. Patient reports that his ride canceled on him. No transportation for FCE. Jama Anderson, PT PROGRESS Observed: 03/08/2018 Status: COMPLETED Source: [place] 7:57 AM [facility] OTHER CAMPUS REPOSITORY HNO ID: [id number] Author: Jama LinoPt) Elvie Service: (none) Author Type: Physical Therapist Type: Progress Notes Filed: 03/08/2018 11:10 AM Note Text: The appointment was cancelled for this patient. Patient called to cancel appointment for today. Patient reports that his ride canceled on him. No transportation for FCE. Jama Anderson, PT PROGRESS Observed: 03/06/2018 Status: COMPLETED Source: [place] 1:15 PM [facility] CAMP[facility] REPOSITORY HNO ID: [id number] Author: Mikayla Tomas Service: (none) Author Type: Registered Dietitian Type: Progress Notes Filed: 03/06/2018 1:43 PM Note Text: [facility] Nutrition Therapy: Initial Assessment Patient states reason for visit: for weight loss Activity: Patient's exercise is: Activities of Daily Living: Sedentary (Desk job, seated for most of the day) Additional Activity: Lightly active (Light exercise: planned physical activity most days/week) Walking, walk the dog, 3-4 x per day 15-30 min Patient's symptoms are: Weight Concerns: failure to lose weight Pain: Is the patient having any pain that is interfering with oral/enteral intake? No 0 on a scale of 0 to 10 Diet History: Breakfast - coffee flavored or if plain will add flavored creamer; slim fast shake Snack - no Lunch - no Snack - no Dinner - 6: 2 slices pizza and 3 bread sticks; Two burgers; fish and potato; juice 16 oz Snack - no Beverages - *juices during the day 1/2 gallon Vitamins/Supplements - no 1-2 Slim fast shakes Allergies: Butrans [Buprenorphine]; Penicillins; Ritalin [Methylphenidate Analogues] Medications: Current Outpatient Prescriptions: Phentermine HCl (ADIPEX-P) 37.5 mg tablet Take 1 tablet by mouth once daily for 30 days. Disp: 30 tablet Rfl: 0 gabapentin (NEURONTIN) 600 mg tablet TAKE 1 TABLET AT BEDTIME Disp: 30 tablet Rfl: 3 citalopram (CELEXA) 20 mg tablet TAKE 1 TABLET EVERY DAY Disp: 30 tablet Rfl: 3 meloxicam (MOBIC) 15 mg tablet TAKE 1 TABLET EVERY DAY Disp: 30 tablet Rfl: [address] (DEPAKOTE) 500 mg EC tablet Take 1,000 mg by mouth daily at bedtime Disp: Rfl: risperiDONE (RISPERDAL) 1 mg tablet Take 1 mg by mouth daily at bedtime Disp: Rfl: methocarbamol (ROBAXIN) 500 mg tablet TAKE 1 TABLET THREE TIMES DAILY Disp: 90 tablet Rfl: 11 COMPOUNDED PRESCRIPTION Why weight program at [facility] Disp: 1 Each Rfl: 0 omeprazole (PRILOSEC) 20 mg capsule Take 1 capsule by mouth daily before breakfast. Disp: 90 capsule Rfl: 3 triamcinolone acetonide (KENALOG) 10 mg/mL injection Intralesional kenalog 10 mg/ml injected to right ear lobe keloid and left ear helix keloid Disp: 1 mL Rfl: 1 fluticasone (FLONASE) 50 mcg/actuation nasal spray Use 2 Sprays in each nostril once daily. for nasal congestion and runniness Disp: 1 Bottle Rfl: 2 albuterol HFA (VENTOLIN HFA) 90 mcg/actuation inhaler Inhale 2 Puffs as instructed every 4 hours as needed for Wheezing/Shortness of Breath. Disp: 1 Inhaler Rfl: 2 VOLTAREN 1 % gel Disp: Rfl: No current facility-administered medications for this visit. Anthropometrics: Height: Last 1 Encounter Ht Readings: Date: Ht: 03/06/2018 172.7 cm (5' 8) Current weight: Last 1 Encounter Wt Readings: Date: Wt: 03/06/2018 143.3 kg (316 lb) Body mass index is 48.05 kg/m?. Resting Metabolic Rate: 2339 NUTRITION ASSESSMENT: Malnutrition Screening Significant unintentional weight loss? No Eating less than 75% of usual intake for more than 2 weeks? No RECOMMENDED MALNUTRITION DIAGNOSIS: NO MALNUTRITION IDENTIFIED Educational materials provided: plant sources of omega 3s READINESS TO LEARN Cognitive ability: Alert and oriented Motivation to learn: Interested Family support: Unable to assess - Family not present Instruction provided to: Patient Patient learns best by: Individual Instruction Factors affecting learning: None Physical limitations affecting learning: None Patient presents for initilal MNT As relates to need for weightloss. Also arthritis, degenerative disk. Goal to feel better, suggested goal weight 200. Intake noted for t ypically one meal per day does take Slim fat and 1/2 gallon juice per day providing excess energy and sugar. Exercise likely lower in intensity, limited by pain. Nutrition Diagnosis: Overweight Obesity, related to; excess energy intake and physical inactivity, as evidenced by BMI above normative standard for age and gender. Nutrition Intervention 03/06/2018: modify type and amount of food or beverage 1. Aim for breakfast lunch and dinner, don't skip meals 2. All beverages calorie free and sugar free (drink water and crystal light/sparkling armenta 3. Have a whole grain/high fiber cereal/low sugar cereal for breakfast, with skim milk; add protien at breakfast (2-3 oz) 4. Have a protein drink and fresh fruit for lunch 5. Follow the Plate Method at lunch and dinner: Use a 9 plate - 1/2 plate vegetables-non starchy such as green beans, greens, broccoli, cauliflower, etc (1 serving of fruit optional outside of plate) - 1/4 plate lean protein-primarily chicken, turkey fish, lean red 1-2 x per week at most (size of palm) - 1/4 plate whole grain or starchy vegetable such as corn, peas, potatoes, beans (size of fist, 1 cup) 1. follow a low-fat low-cholesterol diet 3. Consume whole grains (whole grain breads/cereals, oatmeal, barley, popcorn). Include 20-35 grams of fiber per day. 4. Consume fresh/frozen fruit and vegetables (blueberries, nectarines, raspberries, apples, apricots, figs, prunes, dark leafy greens and include a variety of colors) 5. Consume lean protein (chicken, turkey breast, fish lean beef and pork). Avoid eating red meats more than twice per week. Aim for cheese and meats with 3 grams of fat or less per ounce. 6. Use low fat cooking methods such as baking, broiling, roasted, and grilled 7. Use healthy fats such as olive oil, flaxseed oil, walnuts, almonds, pecans, olives and avocado but in limited amounts. 8. Increase foods rich in omega-3 fatty acids (salmon, tuna, araujo, sardines, shawn) Aim for 2 servings per week (6 ounces total). Almonds/walnuts and ground flaxseed (2 Tablespoons/day). 10. Read food labels. Avoid products made with partially hydrogenated fats/oils. 11 Use fucntional foods:Plant sterols and stanols (1.3 grams plant sterols or 3.4 grams plant stanols per day); 3 g/d of glucan fiber from oats and barley; 7g/day or more fro psyllium seed husk such as Metamucil; 25 g/day soy protien; 1.5 oz/day tree nuts. 12. If you are overweight, losing weight will help lower your total cholesterol level and raise your HDL level. Try using the Healthy Plate method. 13. Be physically active for at least 30-45 minutes per day 5-6 days per week. Nutrition Monitoring AND Evaluation: weight loss Criteria: patient update Need for Follow up: 4-6 weeks Referred/Supervised by: Terese/Terese KELLY Billing Type: Initial Assess/15 min 2 units SIGNATURE: Mikayla Tomas MS RD LD PATIENT NAME: Mckayla Solorzano HERIBERTO DATE: March 06, 2018 TIME: 1:16 PM CNCNPATED Observed: 03/06/2018 Status: COMPLETED Source: [place] 1:15 PM [facility] REPOSITORY Education (NUTRWS) RASHADMCKAYLA Stewart II ([id number]) 1980 M Date Time Provider Department 03/06/18 1:15 PM MIKAYLA TOMAS) LISA Reason for Visit: Patient Education [91] Assessment [673] Progress Notes: Mikayla Tomas MS RD LD 03/06/2018 1:43 PM Signed [facility] Nutrition Therapy: Initial Assessment Patient states reason for visit: for weight loss Activity: Patient's exercise is: Activities of Daily Living: Sedentary (Desk job, seated for most of the day) Additional Activity: Lightly active (Light exercise: planned physical activity most days/week) Walking, walk the dog, 3-4 x per day 15-30 min Patient's symptoms are: Weight Concerns: failure to lose weight Pain: Is the patient having any pain that is interfering with oral/enteral intake? No 0 on a scale of 0 to 10 Diet History: Breakfast - coffee flavored or if plain will add flavored creamer; slim fast shake Snack - no Lunch - no Snack - no Dinner - 6: 2 slices pizza and 3 bread sticks; Two burgers; fish and potato; juice 16 oz Snack - no Beverages - *juices during the day 1/2 gallon Vitamins/Supplements - no 1-2 Slim fast shakes Allergies: Butrans [Buprenorphine]; Penicillins; Ritalin [Methylphenidate Analogues] Medications: Current Outpatient Prescriptions: Phentermine HCl (ADIPEX-P) 37.5 mg tablet Take 1 tablet by mouth once daily for 30 days. Disp: 30 tablet Rfl: 0 gabapentin (NEURONTIN) 600 mg tablet TAKE 1 TABLET AT BEDTIME Disp: 30 tablet Rfl: 3 citalopram (CELEXA) 20 mg tablet TAKE 1 TABLET EVERY DAY Disp: 30 tablet Rfl: 3 meloxicam (MOBIC) 15 mg tablet TAKE 1 TABLET EVERY DAY Disp: 30 tablet Rfl: [address] (DEPAKOTE) 500 mg EC tablet Take 1,000 mg by mouth daily at bedtime Disp: Rfl: risperiDONE (RISPERDAL) 1 mg tablet Take 1 mg by mouth daily at bedtime Disp: Rfl: methocarbamol (ROBAXIN) 500 mg tablet TAKE 1 TABLET THREE TIMES DAILY Disp: 90 tablet Rfl: 11 COMPOUNDED PRESCRIPTION Why weight program at [facility] Disp: 1 Each Rfl: 0 omeprazole (PRILOSEC) 20 mg capsule Take 1 capsule by mouth daily before breakfast. Disp: 90 capsule Rfl: 3 triamcinolone acetonide (KENALOG) 10 mg/mL injection Intralesional kenalog 10 mg/ml injected to right ear lobe keloid and left ear helix keloid Disp: 1 mL Rfl: 1 fluticasone (FLONASE) 50 mcg/actuation nasal spray Use 2 Sprays in each nostril once daily. for nasal congestion and runniness Disp: 1 Bottle Rfl: 2 albuterol HFA (VENTOLIN HFA) 90 mcg/actuation inhaler Inhale 2 Puffs as instructed every 4 hours as needed for Wheezing/Shortness of Breath. Disp: 1 Inhaler Rfl: 2 VOLTAREN 1 % gel Disp: Rfl: No current facility-administered medications for this visit. Anthropometrics: Height: Last 1 Encounter Ht Readings: Date: Ht: 03/06/2018 172.7 cm (5' 8) Current weight: Last 1 Encounter Wt Readings: Date: Wt: 03/06/2018 143.3 kg (316 lb) Body mass index is 48.05 kg/m?. Resting Metabolic Rate: 2339 NUTRITION ASSESSMENT: Malnutrition Screening Significant unintentional weight loss? No Eating less than 75% of usual intake for more than 2 weeks? No RECOMMENDED MALNUTRITION DIAGNOSIS: NO MALNUTRITION IDENTIFIED Educational materials provided: plant sources of omega 3s READINESS TO LEARN Cognitive ability: Alert and oriented Motivation to learn: Interested Family support: Unable to assess - Family not present Instruction provided to: Patient Patient learns best by: Individual Instruction Factors affecting learning: None Physical limitations affecting learning: None Patient presents for initilal MNT As relates to need for weightloss. Also arthritis, degenerative disk. Goal to feel better, suggested goal weight 200. Intake noted for t ypically one meal per day does take Slim fat and 1/2 gallon juice per day providing excess energy and sugar. Exercise likely lower in intensity, limited by pain. Nutrition Diagnosis: Overweight Obesity, related to; excess energy intake and physical inactivity, as evidenced by BMI above normative standard for age and gender. Nutrition Intervention 03/06/2018: modify type and amount of food or beverage 1. Aim for breakfast lunch and dinner, don't skip meals 2. All beverages calorie free and sugar free (drink water and crystal light/sparkling armenta 3. Have a whole grain/high fiber cereal/low sugar cereal for breakfast, with skim milk; add protien at breakfast (2-3 oz) 4. Have a protein drink and fresh fruit for lunch 5. Follow the Plate Method at lunch and dinner: Use a 9 plate - 1/2 plate vegetables-non starchy such as green beans, greens, broccoli, cauliflower, etc (1 serving of fruit optional outside of plate) - 1/4 plate lean protein-primarily chicken, turkey fish, lean red 1-2 x per week at most (size of palm) - 1/4 plate whole grain or starchy vegetable such as corn, peas, potatoes, beans (size of fist, 1 cup) 1. follow a low-fat low-cholesterol diet 3. Consume whole grains (whole grain breads/cereals, oatmeal, barley, popcorn). Include 20-35 grams of fiber per day. 4. Consume fresh/frozen fruit and vegetables (blueberries, nectarines, raspberries, apples, apricots, figs, prunes, dark leafy greens and include a variety of colors) 5. Consume lean protein (chicken, turkey breast, fish lean beef and pork). Avoid eating red meats more than twice per week. Aim for cheese and meats with 3 grams of fat or less per ounce. 6. Use low fat cooking methods such as baking, broiling, roasted, and grilled 7. Use healthy fats such as olive oil, flaxseed oil, walnuts, almonds, pecans, olives and avocado but in limited amounts. 8. Increase foods rich in omega-3 fatty acids (salmon, tuna, araujo, sardines, shawn) Aim for 2 servings per week (6 ounces total). Almonds/walnuts and ground flaxseed (2 Tablespoons/day). 10. Read food labels. Avoid products made with partially hydrogenated fats/oils. 11 Use fucntional foods:Plant sterols and stanols (1.3 grams plant sterols or 3.4 grams plant stanols per day); 3 g/d of glucan fiber from oats and barley; 7g/day or more fro psyllium seed husk such as Metamucil; 25 g/day soy protien; 1.5 oz/day tree nuts. 12. If you are overweight, losing weight will help lower your total cholesterol level and raise your HDL level. Try using the Healthy Plate method. 13. Be physically active for at least 30-45 minutes per day 5-6 days per week. Nutrition Monitoring AND Evaluation: weight loss Criteria: patient update Need for Follow up: 4-6 weeks Referred/Supervised by: Terese/Terese KELLY Billing Type: Initial Assess/15 min 2 units SIGNATURE: Mikayla Tomas MS RD LD PATIENT NAME: Mckayla Solorzano II DATE: March 06, 2018 TIME: 1:16 PM Mikayla Tomas, RD LD 03/06/2018 1:36 PM Signed 1. Aim for breakfast lunch and dinner, don't skip meals 2. All beverages calorie free and sugar free (drink water and crystal light/sparkling armenta 3. Have a whole grain/high fiber cereal/low sugar cereal for breakfast, with skim milk; add protien at breakfast (2-3 oz) 4. Have a protein drink and fresh fruit for lunch 5. Follow the Plate Method at lunch and dinner: Use a 9 plate - 1/2 plate vegetables-non starchy such as green beans, greens, broccoli, cauliflower, etc (1 serving of fruit optional outside of plate) - 1/4 plate lean protein-primarily chicken, turkey fish, lean red 1-2 x per week at most (size of palm) - 1/4 plate whole grain or starchy vegetable such as corn, peas, potatoes, beans (size of fist, 1 cup) 1. follow a low-fat low-cholesterol diet 3. Consume whole grains (whole grain breads/cereals, oatmeal, barley, popcorn). Include 20-35 grams of fiber per day. 4. Consume fresh/frozen fruit and vegetables (blueberries, nectarines, raspberries, apples, apricots, figs, prunes, dark leafy greens and include a variety of colors) 5. Consume lean protein (chicken, turkey breast, fish lean beef and pork). Avoid eating red meats more than twice per week. Aim for cheese and meats with 3 grams of fat or less per ounce. 6. Use low fat cooking methods such as baking, broiling, roasted, and grilled 7. Use healthy fats such as olive oil, flaxseed oil, walnuts, almonds, pecans, olives and avocado but in limited amounts. 8. Increase foods rich in omega-3 fatty acids (salmon, tuna, araujo, sardines, shawn) Aim for 2 servings per week (6 ounces total). Almonds/walnuts and ground flaxseed (2 Tablespoons/day). 10. Read food labels. Avoid products made with partially hydrogenated fats/oils. 11 Use fucntional foods:Plant sterols and stanols (1.3 grams plant sterols or 3.4 grams plant stanols per day); 3 g/d of glucan fiber from oats and barley; 7g/day or more fro psyllium seed husk such as Metamucil; 25 g/day soy protien; 1.5 oz/day tree nuts. 12. If you are overweight, losing weight will help lower your total cholesterol level and raise your HDL level. Try using the Healthy Plate method. 13. Be physically active for at least 30-45 minutes per day 5-6 days per week. Document on: 03/06/2018 by: Mikayla Tomas [[id number]] of: [employer] Worksheet Document on: 03/06/2018 by: Mikayla Tomas [[id number]] of: After Visit Summary Other instructions from your clinician: 1. Aim for breakfast lunch and dinner, don't skip meals 2. All beverages calorie free and sugar free (drink water and crystal light/sparkling armenta 3. Have a whole grain/high fiber cereal/low sugar cereal for breakfast, with skim milk; add protien at breakfast (2-3 oz) 4. Have a protein drink and fresh fruit for lunch 5. Follow the Plate Method at lunch and dinner: Use a 9 plate - 1/2 plate vegetables-non starchy such as green beans, greens, broccoli, cauliflower, etc (1 serving of fruit optional outside of plate) - 1/4 plate lean protein-primarily chicken, turkey fish, lean red 1-2 x per week at most (size of palm) - 1/4 plate whole grain or starchy vegetable such as corn, peas, potatoes, beans (size of fist, 1 cup) 1. follow a low-fat low-cholesterol diet 3. Consume whole grains (whole grain breads/cereals, oatmeal, barley, popcorn). Include 20-35 grams of fiber per day. 4. Consume fresh/frozen fruit and vegetables (blueberries, nectarines, raspberries, apples, apricots, figs, prunes, dark leafy greens and include a variety of colors) 5. Consume lean protein (chicken, turkey breast, fish lean beef and pork). Avoid eating red meats more than twice per week. Aim for cheese and meats with 3 grams of fat or less per ounce. 6. Use low fat cooking methods such as baking, broiling, roasted, and grilled 7. Use healthy fats such as olive oil, flaxseed oil, walnuts, almonds, pecans, olives and avocado but in limited amounts. 8. Increase foods rich in omega-3 fatty acids (salmon, tuna, araujo, sardines, shawn) Aim for 2 servings per week (6 ounces total). Almonds/walnuts and ground flaxseed (2 Tablespoons/day). 10. Read food labels. Avoid products made with partially hydrogenated fats/oils. 11 Use fucntional foods:Plant sterols and stanols (1.3 grams plant sterols or 3.4 grams plant stanols per day); 3 g/d of glucan fiber from oats and barley; 7g/day or more fro psyllium seed husk such as Metamucil; 25 g/day soy protien; 1.5 oz/day tree nuts. 12. If you are overweight, losing weight will help lower your total cholesterol level and raise your HDL level. Try using the Healthy Plate method. 13. Be physically active for at least 30-45 minutes per day 5-6 days per week. Primary Visit Diagnosis:Morbid obesity (HCC) [E66.01] Other Visit Diagnosis:Dietary counseling [Z71.3] During your visit today, we recorded the following information about you: Weight Height 143.3 kg 1.727 m Allergies As of Date: 03/06/2018 Noted Allergy Reaction BUTRANS (BUPRENORPHINE) 02/03/2016 14 - Other: See Comments Comments: Shallow breathing, itching PENICILLINS 07/22/2014 4 - Hives RITALIN (METHYLPHENIDATE ANALOGUE*07/22/2014 4 - Hives Date Reviewed: 03/06/2018 Reviewed by: Mikayla Tomas - Fully Assessed Prescriptions as of 03/06/2018 Sig: PHENTERMINE 37.5 MG TABLET Take 1 tablet by mouth once d* GABAPENTIN 600 MG TABLET TAKE 1 TABLET AT BEDTIME CITALOPRAM 20 MG TABLET TAKE 1 TABLET EVERY DAY MELOXICAM 15 MG TABLET TAKE 1 TABLET EVERY DAY DIVALPROEX 500 MG TABLET,GISSELLE* Take 1,000 mg by mouth daily * RISPERIDONE 1 MG TABLET Take 1 mg by mouth daily at b* METHOCARBAMOL 500 MG TABLET TAKE 1 TABLET THREE TIMES RUI* COMPOUNDED PRESCRIPTION Why weight program at [facility] OMEPRAZOLE 20 MG CAPSULE,GISSELLE* Take 1 capsule by mouth daily* TRIAMCINOLONE ACETONIDE 10 MG* Intralesional kenalog 10 mg/m* FLUTICASONE 50 MCG/ACTUATION * Use 2 Sprays in each nostril * ALBUTEROL SULFATE HFA 90 MCG/* Inhale 2 Puffs as instructed * VOLTAREN 1 % TOPICAL GEL Encounter Status:Closed by THOM CANADA, MIKAYLA on 03/06/18 LUIS Observed: 02/17/2018 Status: COMPLETED Source: [place] 3:00 PM [facility] REPOSITORY Office Visit (INTMWS) MCKAYLA SOLORZANO II ([id number]) 1980 M Date Time Provider Department 02/17/18 3:00 PM TONY PEDROZA ([facility]) INTMWS During your visit today, we recorded the following information about you: Temperature Pulse Respiration Blood pressure 98.5 degrees 96/minute 16/minute 128/84 Weight 146.5 kg Tony Pedroza ([facility]) 02/17/2018 3:08 PM Signed CC: Mckayla Stewart Rashad HERIBERTO is a 37 year old male who presents for weight loss medication follow up. HPI Currently taking Adipex. Starting Month 2 of 3 Denies: abdominal pain, nausea, vomiting, diarrhea, fevers, constipation, headache, change in urination, lightheadedness, weakness, numbness or tingling to arms or legs, edema, palpitations, sleep disturbances, impairment of concentration/attention, difficulty with memory, speech or language problems (particularly word-finding difficulties). DIET Serving of fruits:1-2 Servings of vegetables:1-2 Servings of protein:3-5 Fluid intake:Water: 6 glasses per day Juice: 10 glasses per day Other: energy drink : not even once per day Do you Skip meals:NO Which meals do you tend to skip? None, doing 2 meal replacement shakes and 1 full meal usually lunch Food Behaviors: portion controlling Eating away from home:NO tries to stay away from fast food/restaurant Nutrition consult placed No, but patient would like to speak with dietitian Exercise routine: NO d/t chronic pain. Takes dogs for walk and increasing distance as goes Weight/BMI Last 1 Encounter Wt Readings: Date: Wt: 02/17/2018 146.5 kg (323 lb) BMI 49.11 kg/(m2) Last visit Wt: 153.3 kg (338 lb) BMI: 51.39 kg/(m2) Weight change since last visit: How much: 15lbs, How lon month Percent of Weight Loss: 4.4% Over 1 months ROS as above, otherwise non-contributory. Reviewed PMHx, PSHx, social Hx, medications and allergies. PHYSICAL EXAM BP 128/84 Pulse 96 Temp 36.9 ?C (98.5 ?F) (Temporal Artery) Resp 16 Wt (!) 146.5 kg (323 lb) SpO2 95% BMI 49.11 kg/m? General Appearance: well appearing, in no acute distress, alert, obese Pysch: mood and affect broad and appropriate Skin: Skin color, texture, turgor normal for age; Lungs: Lungs clear to auscultation. No wheezing, rhonchi, rales Heart: RRR without murmur, gallop, or rubs. No ectopy ASSESSMENT/PLAN: 1. Morbid obesity (HCC) - ICD9: 278.01, ICD10: E66.01 - Continue diet consisting of protein shakes and portion reduction . - Reduce sugary drinks of artificial juices and sodas and replace with water and low calorie Crystal Light. Dicussed cutting out juice all together, if unable suggest 1-2 glasses per day diluted with water - Healthy Snack alternatives have been discussed and will attempt more fruits and vegetables. - encouraged 3 meals a day - Continueexercise or meaningful activity for 20 minutes at lest 3 times a day [place]ARRS website checked and validated. All prescriptions have been APPROPRIATELY filled. No suspicious activity was identified.- 02/17/2018 by Tony Pedroza APRN.HEALTH AND SAFETY TRAINER - reviewed SE, medication expectations, required weight loss of 5%, monthly monitoring and medication duration of use (3 months on 6 months off) Prescription instructions reviewed with patient as applicable. Potential red flag symptoms discussed with the patient. Reviewed appropriate action plan to take if red flag symptoms occur. Patient agreeable to treatment plan. Tony Pedroza APRN.[facility] Referring Provider: LACY ROBERSON [[id number]] Allergies As of Date: 02/17/2018 Noted Allergy Reaction BUTRANS (BUPRENORPHINE) 02/03/2016 14 - Other: See Comments Comments: Shallow breathing, itching PENICILLINS 07/22/2014 4 - Hives RITALIN (METHYLPHENIDATE ANALOGUE*07/22/2014 4 - Hives Date Reviewed: 02/17/2018 Reviewed by: Shirley Mosher Ma - Fully Assessed Reason for Visit: Recheck [92] Cmt: 1 month follow up Adipex - Down 15# Reason For Visit History Recorded Visit Diagnosis:Morbid obesity (HCC) [E66.01] Order(s):Phentermine HCl (ADIPEX-P) 37.5 mg tabletTake 1 tablet by mouth once daily for 30 days.Disp: 30 tabletRfl: 0 CONSULT TO NUTRITION THERAPY [9006] Order #: [id number]: 1 Prescriptions as of 02/17/2018 Sig: PHENTERMINE 37.5 MG TABLET Take 1 tablet by mouth once d* GABAPENTIN 600 MG TABLET TAKE 1 TABLET AT BEDTIME CITALOPRAM 20 MG TABLET TAKE 1 TABLET EVERY DAY MELOXICAM 15 MG TABLET TAKE 1 TABLET EVERY DAY DIVALPROEX 500 MG TABLET,GISSELLE* Take 1,000 mg by mouth daily * RISPERIDONE 1 MG TABLET Take 1 mg by mouth daily at * METHOCARBAMOL 500 MG TABLET TAKE 1 TABLET THREE TIMES RUI* COMPOUNDED PRESCRIPTION Why weight program at [facility] OMEPRAZOLE 20 MG CAPSULE,GISSELLE* Take 1 capsule by mouth daily* TRIAMCINOLONE ACETONIDE 10 MG* Intralesional kenalog 10 mg/m* FLUTICASONE 50 MCG/ACTUATION * Use 2 Sprays in each nostril * ALBUTEROL SULFATE HFA 90 MCG/* Inhale 2 Puffs as instructed * VOLTAREN 1 % TOPICAL GEL Problem List As Of Date 02/17/2018 Noted Resolved ADHD (attention deficit hyperactivity disorder)* More... Depression [F32.9] More... Anxiety [F41.9] More... Chronic pain in shoulder [M25.519, G89.29] More... Morbid obesity with BMI of 45.0-49.9, adult (HC*INVALID FOR* More... 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 Medications Discontinued During This Encounter Phentermine HCl (ADIPEX-P) 37.5 mg t* 30 t* 0 01/18/2018 02/17/2018 Class: Print RX Route: ORAL Sig: Take 1 tablet by mouth once daily for 30 days. Disc: Reason for discontinue is not on file. Disposition: Return in about 1 month (around 03/20/2018). Follow-up and Disposition History Recorded Encounter Status:Closed by TONY PEDROZA CNP on 02/17/18 PROGRESS Observed: 02/17/2018 Status: COMPLETED Source: [place] 2:49 PM [facility] O ID: [id number] Author: Tony Pedroza ([facility]) Service: (none) Author Type: Nurse Practitioner Type: Progress Notes Filed: 02/17/2018 3:08 PM Note Text: CC: Mckayla Solorzano II is a 37 year old male who presents for weight loss medication follow up. HPI Currently taking Adipex. Starting Month 2 of 3 Denies: abdominal pain, nausea, vomiting, diarrhea, fevers, constipation, headache, change in urination, lightheadedness, weakness, numbness or tingling to arms or legs, edema, palpitations, sleep disturbances, impairment of concentration/attention, difficulty with memory, speech or language problems (particularly word-finding difficulties). DIET Serving of fruits:1-2 Servings of vegetables:1-2 Servings of protein:3-5 Fluid intake:Water: 6 glasses per day Juice: 10 glasses per day Other: energy drink : not even once per day Do you Skip meals:NO Which meals do you tend to skip? None, doing 2 meal replacement shakes and 1 full meal usually lunch Food Behaviors: portion controlling Eating away from home:NO tries to stay away from fast food/restaurant Nutrition consult placed No, but patient would like to speak with dietitian Exercise routine: NO d/t chronic pain. Takes dogs for walk and increasing distance as goes Weight/BMI Last 1 Encounter Wt Readings: Date: Wt: 02/17/2018 146.5 kg (323 lb) BMI 49.11 kg/(m2) Last visit Wt: 153.3 kg (338 lb) BMI: 51.39 kg/(m2) Weight change since last visit: How much: 15lbs, How lon month Percent of Weight Loss: 4.4% Over 1 months ROS as above, otherwise non-contributory. Reviewed PMHx, PSHx, social Hx, medications and allergies. PHYSICAL EXAM BP 128/84 Pulse 96 Temp 36.9 ?C (98.5 ?F) (Temporal Artery) Resp 16 Wt (!) 146.5 kg (323 lb) SpO2 95% BMI 49.11 kg/m? General Appearance: well appearing, in no acute distress, alert, obese Pysch: mood and affect broad and appropriate Skin: Skin color, texture, turgor normal for age; Lungs: Lungs clear to auscultation. No wheezing, rhonchi, rales Heart: RRR without murmur, gallop, or rubs. No ectopy ASSESSMENT/PLAN: 1. Morbid obesity (HCC) - ICD9: 278.01, ICD10: E66.01 - Continue diet consisting of protein shakes and portion reduction . - Reduce sugary drinks of artificial juices and sodas and replace with water and low calorie Crystal Light. Dicussed cutting out juice all together, if unable suggest 1-2 glasses per day diluted with water - Healthy Snack alternatives have been discussed and will attempt more fruits and vegetables. - encouraged 3 meals a day - Continueexercise or meaningful activity for 20 minutes at lest 3 times a day OARRS website checked and validated. All prescriptions have been APPROPRIATELY filled. No suspicious activity was identified.- 02/17/2018 by Tony Pedroza APRN.HEALTH AND SAFETY TRAINER - reviewed SE, medication expectations, required weight loss of 5%, monthly monitoring and medication duration of use (3 months on 6 months off) Prescription instructions reviewed with patient as applicable. Potential red flag symptoms discussed with the patient. Reviewed appropriate action plan to take if red flag symptoms occur. Patient agreeable to treatment plan. Tony Pedroza APRN.MAGUI BASIC METABOLIC PANL Collected: 02/16/2018 Status: F Source: [place] 12:24 PM [facility] REPOSITORY TYPE CODE TESTS RESULT OUT OF REFERENCE UNITS RANGE LAB GLU 74-99 mg/dL Glucose 90 Result Comment: The [place] Diabetes [employer] (ADA) provides guidance for cutoff values for fasting glucose and random glucose. The ADA defines fasting as no caloric intake for at least 8 hours. Fas ting plasma glucose results between 100 to 125 mg/dL indicate increased risk for diabetes (prediabetes). Fasting plasma glucose results greater than or equal to 126 mg/dL meet the criteria for diagnosis of diabetes. In the absence of unequivocal hyperglycemia, results should be confirmed by repeat testing. In a patient with classic symptoms of hyperglycemia or hyperglycemic crisis, random plasma glucose results greater than or equal to 200 mg/dL meet the criteria for diagnosis of diabetes. Reference: Standards of Medical Care in Diabetes 2016, [place] Diabetes [employer]. Diabetes Care. 2016.39(Suppl 1). LAB BUN 9-24 mg/dL BUN 12 LAB CRET 0.73-1.22 mg/dL Creatinine 0.79 LAB NA 136-144 mmol/L Sodium 142 LAB K 3.7-5.1 mmol/L Potassium 4.3 LAB CL 97-105 mmol/L Chloride 100 LAB CO2 22-30 mmol/L CO2 25 LAB AGAP 9-18 mmol/L Anion Gap 17 LAB CA 8.5-10.2 mg/dL Calcium, Total 9.4 LAB GFRAA eGFR- Amer. >60 LAB GFRNAA . eGFR-All Other Races >60 Result Comment: eGFR (Estimated GFR) Units of measure: mL/min/1.73 meters squared eGFR is derived from the reexpressed MDRD Study equation using the following parameters: serum creatinine, age, gender and race. The creatinine assay has been calibrated to be traceable to IDMS. An eGFR <60 mL/min/1.73m2 for >3 months is consistent with chronic kidney disease. Refer to KDOQI guidelines for clinical interpretation. In patients with unstable renal function, e.g. those with acute kidney injury, the eGFR may not accurately reflect actual GFR. Performed By: #### BMP, LIPB, HBA1C #### [facility] [address] [place], [place] [address] LIPID PANEL, BASIC Collected: 02/16/2018 Status: F Source: [place] 12:24 PM [facility] REPOSITORY TYPE CODE TESTS RESULT OUT OF REFERENCE UNITS RANGE LAB CHOL <200 mg/dL Cholesterol 199 Result Comment: <200 mg/dL, Desirable 200-239 mg/dL, Borderline high >239 mg/dL, High LAB TRIGLY <150 mg/dL Triglyceride High 274 Result Comment: <150 mg/dL, Normal 150-199 mg/dL, Borderline high 200-499 mg/dL, High >499 mg/dL, Very high LAB HDL >39 mg/dL HDL-Cholesterol Low 31 Result Comment: 40-59 mg/dL, Acceptable >59 mg/dL, High: Negative risk factor for coronary heart disease <40 mg/dL, Low: Positive risk factor for coronary heart disease LAB LDL <100 mg/dL LDL-Cholesterol High 113 Result Comment: <100 mg/dL, Optimal 100-129 mg/dL, Near optimal/above optimal 130-159 mg/dL, Borderline high 160-189 mg/dL, High >189 mg/dL, Very high Secondary prevention optimal LDL Cholesterol levels are recommended to be < 70 mg/dL LAB NONHDL <130 mg/dL Non HDL High Cholesterol 168 Result Comment: <130 mg/dL, Optimal 130-159 mg/dL, Near optimal/above optimal 160-189 mg/dL, Borderline high 190-219 mg/dL, High >219 mg/dL, Very high Secondary prevention optimal non HDL Cholesterol levels are recommended to be < 100 mg/dL LAB FT hrs Fasting Time 12 LAB VLDL <30 mg/dL High VLDL Cholesterol 55 LAB TCHDL <5.10 High TC:HDL Ratio 6.42 LAB LDLHDL <2.54 High LDL:HDL Ratio 3.65 Result Comment: Reference: 1. National Cholesterol Education Program ATP III Guideline At-A-Glance Quick Desk Reference: National Heart, Lung, and Blood [place]. National Institutes of Health. 2001: NIH Publication No. 01-3305. 2. An International Atherosclerosis Society position paper: global recommendations for the management of dyslipidemia: executive summary, Atherosclerosis. 2014: 232(2):410-413. Performed By: #### BMP, LIPB, HBA1C #### [facility] [address] [place], [place] [address] HEMOGLOBIN A1C Collected: 02/16/2018 Status: F Source: [place] 12:24 PM [facility] REPOSITORY TYPE CODE TESTS RESULT OUT OF REFERENCE UNITS RANGE LAB HGBA1C 4.3-5.6 % Hemoglobin A1c 5.0 LAB HBA0 mg/dL Est. Average Glucose 97 Result Comment: eAG: (Estimated average glucose) is a calculated value from HgbA1c and is jewelry sales representative of the average blood glucose level in the last 2-3 month period. Performed By: #### BMP, LIPB, HBA1C #### [facility] [address] [place], [place] [address] PT D/C SUMMARY (1) Observed: 02/07/2018 Status: F Source: [place] 3:02 PM [facility] REPOSITORY [facility] [address] [place] [address]. [address] [place], [place] [address] Fax REHABILITATION SERVICES DISCHARGE SUMMARY MR#: [id number] Acct: [id number] Name: MCKAYLA SOLORZANO II Rep #: [id number] : 1980 37 From: Jaabri Nicole PT, Cert. MDT, OCS Referring DrAvel: RAFFI IBARRA Status: REG R Insurance: [facility] - PT D/C Summary It has been my pleasure to treat MCKAYLA SOLORZANO II under orders from Raffi Ibarra, for the diagnosis of CERVICAL MYOFASCIAL STRAIN,CERVICALAGIA,CHRONIC SHOULDER PAIN,DECONDITIONED for a total of 21 visit(s). Discharge Date: 02/03/18 Please see the following information for a summary of their discharge status. - Subjective Subjective: Water exercised helped with pain for function with walking ,standing and ADL'S. Pain is intemittant but mobility is better. - Pain Left Neck Pain Intensity (Out of 10): 6 Left Scapula Pain Intensity (Out of 10): 2 Back Pain Intensity (Out of 10): 4 Left Knee Pain Intensity (Out of 10): 6 - Overall Improvement % Improvement: 50 - Objective Objective/Function: POSTURE: mild foward posture. PALPATION: tender UT/levator. AROM: flexion 95 degrees left ,140 flexion right,abd left 90 degrees,. MMT: BUE 4-/5 ,left shoulder 3/5 pain. + cervical quadrant - Goals Goal 1:: Independanat with Aquatic PT Goal Progress: Goal Met Goal 2:: Decrease shoulder and cervical pain by 50% or greater to improve function ADL'S Goal Progress: Progressing Goal 3:: Independant with posture for ADL'S Goal Progress: Progressing Goal 4:: Decrease shoulder pain pain and cervical pain by 50% or grater to improve function with ADL'S Goal Progress: Progressing Goal 5:: Patient increase strength of left shoulder 4/5 to improve function with ADL'S and overhead activities Goal Progress: Progressing - Plan Plan: D/C - D/C Information If there are questions or concerns regarding this patient's physical therapy, please feel free to call me at [phone]. Thank you for the referral of this patient. Sincerely, Jabari Nicole PT, <Electronically signed by Jabari Nicole PT, Cert. MDT, OCS> 02/07/18 1502 CC: Lacy Roberson MD; RAFFI IBARRA TIM Signed CNPTOUTREACH Observed: 01/31/2018 Status: COMPLETED Source: [place] 12:00 AM [facility] REPOSITORY Patient Outreach (FAMPST) MCKAYLA SOLORZANO II ([id number]) 1980 M Date Time Provider Department 01/31/18 LACY ROBERSON During your visit today, we recorded the following information about you: Allergies As of Date: 01/31/2018 Noted Allergy Reaction BUTRANS (BUPRENORPHINE) 02/03/2016 14 - Other: See Comments Comments: Shallow breathing, itching PENICILLINS 07/22/2014 4 - Hives RITALIN (METHYLPHENIDATE ANALOGUE*07/22/2014 4 - Hives Date Reviewed: 01/18/2018 Reviewed by: Shirley Mosher Ma - Fully Assessed Visit Diagnosis:Medication management [Z79.899] Order(s):BASIC METABOLIC PNL [SQBMP] Order #: [id number] FUTURE Prescriptions as of 01/31/2018 Sig: X PHENTERMINE 37.5 MG TABLET Take 1 tablet by mouth once d* X GABAPENTIN 600 MG TABLET TAKE 1 TABLET AT BEDTIME X CITALOPRAM 20 MG TABLET TAKE 1 TABLET EVERY DAY X MELOXICAM 15 MG TABLET TAKE 1 TABLET EVERY DAY DIVALPROEX 500 MG TABLET,GISSELLE* Take 1,000 mg by mouth daily * RISPERIDONE 1 MG TABLET Take 1 mg by mouth daily at b* X METHOCARBAMOL 500 MG TABLET TAKE 1 TABLET THREE TIMES RUI* COMPOUNDED PRESCRIPTION Why weight program at [facility] X OMEPRAZOLE 20 MG CAPSULE,GISSELLE* Take 1 capsule by mouth daily* TRIAMCINOLONE ACETONIDE 10 MG* Intralesional kenalog 10 mg/m* FLUTICASONE 50 MCG/ACTUATION * Use 2 Sprays in each nostril * ALBUTEROL SULFATE HFA 90 MCG/* Inhale 2 Puffs as instructed * VOLTAREN 1 % TOPICAL GEL Problem List As Of Date 01/31/2018 Noted Resolved ADHD (attention deficit hyperactivity disorder)* More... Depression [F32.9] More... Anxiety [F41.9] More... Chronic pain in shoulder [M25.519, G89.29] More... Morbid obesity with BMI of 45.0-49.9, adult (HC*INVALID FOR* More... 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*INVALID FOR* Physical deconditioning [R53.81] INVALID FOR* Cervical myofascial strain [S16.1XXA] INVALID FOR* Cervicalgia [M54.2] INVALID FOR* Encounter Status:Closed by KIRSTY PRODUSER on 07/28/18 PROGRESS Observed: 01/18/2018 Status: COMPLETED Source: [place] 6:19 PM [facility] REPOSITORY HNO ID: [id number] Author: Lacy Roberson Service: (none) Author Type: Physician Type: Progress Notes Filed: 01/18/2018 8:43 PM Note Text: Reason for Visit Patient presents with: Recheck: Follow up, discuss Adipex Mckayla Solorzano II is a 37 year old male who presents here today for Above Complaints.. Health Maintenance There are no preventive care reminders to display for this patient. HPI He would like to take adipex for weight loss. He is doing some acqatic therapy which is helping him a lot. His neck rom has improved and his overall mobility too has improved He has a functional mobility testing coming up. He is able to exercise some at least walking more, tracking steps.also thinking of doing a slim fast diet , started doing 2 shakes and one meal in a day he feels hungry but he fights it a lot He drinks a half a gallon of Milk in 2 days No problem-specific Assessment AND Plan notes found for this encounter. PAST MEDICAL HISTORY Diagnosis Date - ADHD (attention deficit hyperactivity disorder) - Anxiety - Chronic pain in shoulder left - Chronic pain of left elbow - Depression PAST SURGICAL HISTORY Procedure Laterality Date - CYST W/RESECT/INCISE EJAC DCT back - PAST SURGICAL HISTORY OF Laser removal of keloids in ear - PILONIDAL CYST/SINUS EXCISION - REMOVAL OF TONSILS,<13 Y/O Tonsillectomy FAMILY HISTORY Problem Relation Age of Onset - Cancer Father lung - Cancer Paternal Grandfather lung - Hypertension Father - a fib [Other] [OTHER] Mother - Stroke Paternal Grandfather - Diabetes Maternal Grandfather Social History Substance Use Topics - Smoking status: Never Smoker - Smokeless tobacco: Never Used - Alcohol use No Past medical history, appointments, medications, allergies reviewed. Pertinent Lab/Diagnostic Studies are reviewed and discussed today Current Outpatient Prescriptions: - gabapentin (NEURONTIN) 600 mg tablet - citalopram (CELEXA) 20 mg tablet - meloxicam (MOBIC) 15 mg tablet - divalproex DR (DEPAKOTE) 500 mg EC tablet - risperiDONE (RISPERDAL) 1 mg tablet - methocarbamol (ROBAXIN) 500 mg tablet - COMPOUNDED PRESCRIPTION - omeprazole (PRILOSEC) 20 mg capsule - triamcinolone acetonide (KENALOG) 10 mg/mL injection - fluticasone (FLONASE) 50 mcg/actuation nasal spray - albuterol HFA (VENTOLIN HFA) 90 mcg/actuation inhaler - VOLTAREN 1 % gel Review of Systems CONSTITUTIONAL: No fevers, chills night sweats, unintended weight loss CARDIOVASCULAR: No chest pain, dyspnea, palpitations, orthopnea, PND, ankle edema. PULM: No dyspnea, unexplained cough. GI: No dysphagia/odynophagia, problematic reflux, constipation, diarrhea, changes in stool habits, hematochezia, melena. : No new urinary complaints, including dysuria, gross hematuria or pyuria. NEURO: No new balance problems, peripheral weakness/paresthesias or numbness of concern. Physical Exam BP 136/94 Pulse 112 Resp 16 Wt (!) 153.3 kg (338 lb) SpO2 96% BMI 51.39 kg/m2 General appearance: Well appearing, alert, in no acute distress, well nourished. Skin: Skin color, texture, turgor normal, no suspicious rashes or lesions Head: Normocephalic, no masses, lesions, tenderness or abnormalities Eyes: Anicteric sclera. Pupils are equally round and reactive to light. Extraocular movements are intact. Lungs: Lungs clear to auscultation. No wheezing, rhonchi, rales Heart: RRR without murmur, gallop, or rubs. ASSESSMENT/PLAN: 1. Morbid obesity (HCC) - ICD9: 278.01, ICD10: E66.01 Recheck bp is good Discussed Contraindications, went over each one and over side effects. tolerance, continuity of medication, controlled medication so cannot be replaced if stolen or if lost. Advised exercising along with this will really help the patient reach her goal of loosing weight. Short term use of this med was discussed. Negative for all the following :Hypersensitivity or idiosyncrasy to phentermine or other sympathomimetic amines or any component of the formulation; history of cardiovascular disease (arrhythmias, congestive heart failure, coronary artery disease, stroke, uncontrolled hypertension); hyperthyroidism, glaucoma, agitated states, history of drug abuse; use during or within 14 days following MAO inhibitor therapy; , breast-feeding. Recheck bp is good, Discussed cutting out the milk and to eat less carbs - PHENTERMINE 37.5 MG TABLET MD [place] HERRERAOV Observed: 01/18/2018 Status: COMPLETED Source: [place] 6:00 PM [facility] RE[facility]ITORY Office Visit (INTMWS) MCKAYLA SOLORZANO II ([id number]) 1980 M Date Time Provider Department 01/18/18 6:00 PM LACY ROBERSON INTMWS During your visit today, we recorded the following information about you: Pulse Respiration Blood pressure Weight 112/minute 16/minute 120/82 153.3 kg LACY ROBERSON MD 01/18/2018 8:43 PM Signed Reason for Visit Patient presents with: Recheck: Follow up, discuss Adipex Mckayla Solorzano II is a 37 year old male who presents here today for Above Complaints.. Health Maintenance There are no preventive care reminders to display for this patient. HPI He would like to take adipex for weight loss. He is doing some acqatic therapy which is helping him a lot. His neck rom has improved and his overall mobility too has improved He has a functional mobility testing coming up. He is able to exercise some at least walking more, tracking steps.also thinking of doing a slim fast diet , started doing 2 shakes and one meal in a day he feels hungry but he fights it a lot He drinks a half a gallon of Milk in 2 days No problem-specific Assessment ANDamp; Plan notes found for this encounter. PAST MEDICAL HISTORY Diagnosis Date - ADHD (attention deficit hyperactivity disorder) - Anxiety - Chronic pain in shoulder left - Chronic pain of left elbow - Depression PAST SURGICAL HISTORY Procedure Laterality Date - CYST W/RESECT/INCISE EJAC DCT back - PAST SURGICAL HISTORY OF Laser removal of keloids in ear - PILONIDAL CYST/SINUS EXCISION - REMOVAL OF TONSILS,ANDlt;13 Y/O Tonsillectomy FAMILY HISTORY Problem Relation Age of Onset - Cancer Father lung - Cancer Paternal Grandfather lung - Hypertension Father - a fib [Other] [OTHER] Mother - Stroke Paternal Grandfather - Diabetes Maternal Grandfather Social History Substance Use Topics - Smoking status: Never Smoker - Smokeless tobacco: Never Used - Alcohol use No Past medical history, appointments, medications, allergies reviewed. Pertinent Lab/Diagnostic Studies are reviewed and discussed today Current Outpatient Prescriptions: - gabapentin (NEURONTIN) 600 mg tablet - citalopram (CELEXA) 20 mg tablet - meloxicam (MOBIC) 15 mg tablet - divalproex DR (DEPAKOTE) 500 mg EC tablet - risperiDONE (RISPERDAL) 1 mg tablet - methocarbamol (ROBAXIN) 500 mg tablet - COMPOUNDED PRESCRIPTION - omeprazole (PRILOSEC) 20 mg capsule - triamcinolone acetonide (KENALOG) 10 mg/mL injection - fluticasone (FLONASE) 50 mcg/actuation nasal spray - albuterol HFA (VENTOLIN HFA) 90 mcg/actuation inhaler - VOLTAREN 1 % gel Review of Systems CONSTITUTIONAL: No fevers, chills night sweats, unintended weight loss CARDIOVASCULAR: No chest pain, dyspnea, palpitations, orthopnea, PND, ankle edema. PULM: No dyspnea, unexplained cough. GI: No dysphagia/odynophagia, problematic reflux, constipation, diarrhea, changes in stool habits, hematochezia, melena. : No new urinary complaints, including dysuria, gross hematuria or pyuria. NEURO: No new balance problems, peripheral weakness/paresthesias or numbness of concern. Physical Exam BP 136/94 Pulse 112 Resp 16 Wt (!) 153.3 kg (338 lb) SpO2 96% BMI 51.39 kg/m2 General appearance: Well appearing, alert, in no acute distress, well nourished. Skin: Skin color, texture, turgor normal, no suspicious rashes or lesions Head: Normocephalic, no masses, lesions, tenderness or abnormalities Eyes: Anicteric sclera. Pupils are equally round and reactive to light. Extraocular movements are intact. Lungs: Lungs clear to auscultation. No wheezing, rhonchi, rales Heart: RRR without murmur, gallop, or rubs. ASSESSMENT/PLAN: 1. Morbid obesity (HCC) - ICD9: 278.01, ICD10: E66.01 Recheck bp is good Discussed Contraindications, went over each one and over side effects. tolerance, continuity of medication, controlled medication so cannot be replaced if stolen or if lost. Advised exercising along with this will really help the patient reach her goal of loosing weight. Short term use of this med was discussed. Negative for all the following :Hypersensitivity or idiosyncrasy to phentermine or other sympathomimetic amines or any component of the formulation; history of cardiovascular disease (arrhythmias, congestive heart failure, coronary artery disease, stroke, uncontrolled hypertension); hyperthyroidism, glaucoma, agitated states, history of drug abuse; use during or within 14 days following MAO inhibitor therapy; , breast-feeding. Recheck bp is good, Discussed cutting out the milk and to eat less carbs - PHENTERMINE 37.5 MG TABLET LACY ROBERSON MD ' Referring Provider: SELF [200] Allergies As of Date: 01/18/2018 Noted Allergy Reaction BUTRANS (BUPRENORPHINE) 02/03/2016 14 - Other: See Comments Comments: Shallow breathing, itching PENICILLINS 07/22/2014 4 - Hives RITALIN (METHYLPHENIDATE ANALOGUE*07/22/2014 4 - Hives Date Reviewed: 01/18/2018 Reviewed by: Shirley Mosher Ma - Fully Assessed Reason for Visit: Recheck [92] Cmt: Follow up, discuss Adipex Primary Visit Diagnosis:Morbid obesity (HCC) [E66.01] Other Visit Diagnosis:Obstructive sleep apnea syndrome [G47.33] Order(s):Phentermine HCl (ADIPEX-P) 37.5 mg tabletTake 1 tablet by mouth once daily for 30 days.Disp: 30 tabletRfl: 0 POLYSOMNOGRAM (PSG)/HOME SLEEP APNEA TESTING (HSAT) [[id number]] Order #: [id number] FUTURE Prescriptions as of 01/18/2018 Sig: PHENTERMINE 37.5 MG TABLET Take 1 tablet by mouth once d* GABAPENTIN 600 MG TABLET TAKE 1 TABLET AT BEDTIME CITALOPRAM 20 MG TABLET TAKE 1 TABLET EVERY DAY MELOXICAM 15 MG TABLET TAKE 1 TABLET EVERY DAY DIVALPROEX 500 MG TABLET,GISSELLE* Take 1,000 mg by mouth daily * RISPERIDONE 1 MG TABLET Take 1 mg by mouth daily at b* METHOCARBAMOL 500 MG TABLET TAKE 1 TABLET THREE TIMES RUI* COMPOUNDED PRESCRIPTION Why weight program at [facility] OMEPRAZOLE 20 MG CAPSULE,GISSELLE* Take 1 capsule by mouth daily* TRIAMCINOLONE ACETONIDE 10 MG* Intralesional kenalog 10 mg/m* FLUTICASONE 50 MCG/ACTUATION * Use 2 Sprays in each nostril * ALBUTEROL SULFATE HFA 90 MCG/* Inhale 2 Puffs as instructed * VOLTAREN 1 % TOPICAL GEL Problem List As Of Date 01/18/2018 Noted Resolved ADHD (attention deficit hyperactivity disorder)* More... Depression [F32.9] More... Anxiety [F41.9] More... Chronic pain in shoulder [M25.519, G89.29] More... Morbid obesity with BMI of 45.0-49.9, adult (HC*INVALID FOR* More... 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 Encounter Status:Closed by LACY ROBERSON MD on 01/18/18 CNCO Observed: 01/18/2018 Status: COMPLETED Source: [place] 12:00 AM [facility] REPOSITORY Letter Text Mckayla Solorzano II Department of Pain Management Raffi Ibarra MD [place] [address] January 18, 2018 RE: Mckayla Solorzano II [address] [facility] [address] :1980 To Whom it May Concern: This is to confirm that Mckayla Solorzano II had an appointment and was seen at the [facility] in the Department of Pain Management by Dr. Ibarar on 09/07/2017. Mckayla is seen in our office for neck pain and myofascial pain. It was recommended at that time for patient to participate in water therapy. He needs to increase his activity as the best initial approach to improving. If you have any questions or concerns please feel free to contact our office. Sincerely yours, Raffi Ibarra MD VALPROIC ACID Collected: 01/03/2018 Status: F Source: [place] 1:10 PM CLINIC REFERENCE REPOSITORY TYPE CODE TESTS RESULT OUT OF REFERENCE UNITS RANGE LAB VPA(LOINC) 50-100 ug/mL Valproic Acid 53.0 Performed By: #### VPA, PLTCT, CMP #### [facility] Routine Lab [address] [place], [place] [id number] PLATELET COUNT Collected: 01/03/2018 Status: F Source: [place] 1:10 PM CLINIC REFERENCE REPOSITORY TYPE CODE TESTS RESULT OUT OF REFERENCE UNITS RANGE LAB PLTCT(LOINC 150-400 k/uL ) Low Platelet Count 142 Performed By: #### VPA, PLTCT, CMP #### [facility] Routine Lab [address] [place], [place] [address] COMP METABOLIC PANEL Collected: 01/03/2018 Status: F Source: [place] 1:10 PM CLINIC REFERENCE REPOSITORY TYPE CODE TESTS RESULT OUT OF REFERENCE UNITS RANGE LAB TP(LOINC) 6.3-8.0 g/dL Protein, Total 7.2 LAB ALB(LOINC) 3.9-4.9 g/dL Albumin 4.3 LAB CA(LOINC) 8.5-10.2 mg/dL Calcium, Total 9.1 LAB TBIL(LOINC 0.2-1.3 mg/dL ) Bilirubin, Total 0.3 LAB ALKP(LOINC 36-108 U/L ) Alkaline Phosphatase 67 LAB AST(LOINC) 14-40 U/L AST 30 LAB GLU(LOINC) 74-99 mg/dL Glucose 95 LAB BUN(LOINC) 9-24 mg/dL BUN 13 LAB CRET(LOINC 0.73-1.22 mg/dL ) Low Creatinine 0.70 LAB NA(LOINC) 136-144 mmol/L Sodium 141 LAB K(LOINC) 3.7-5.1 mmol/L Potassium 4.5 LAB CL(LOINC) 97-105 mmol/L Chloride 102 LAB CO2(LOINC) 22-30 mmol/L CO2 24 LAB AGAP(LOINC 9-18 mmol/L ) Anion Gap 15 LAB ALT(LOINC) 10-54 U/L ALT 48 LAB GFRAA(LOIN C) eGFR- >60 Amer. LAB GFRNAA(JENNIFER . [place]) eGFR-All Other Races >60 Performed By: #### VPA, PLTCT, CMP #### [facility] Routine Lab [address] [place], [place] [address] OBSOLETE Observed: 11/10/2017 Status: COMPLETED Source: [place] 12:00 AM [facility] REPOSITORY Refill (INTMWS) MCKAYLA SOLORZANO II ([id number]) 1980 M Date Time Provider Department 11/10/17 LACY ROBERSON During your visit today, we recorded the following information about you: Molly Valdez LPN 11/12/2017 10:04 AM Signed Patient has been identified by name and date of : Yes Pharmacy phones for refill(s): Pending Prescriptions Disp Refills GABAPENTIN 600 MG TABLET 30 tablet Sig: TAKE 1 TABLET AT BEDTIME CASTRO: Yes CITALOPRAM 20 MG TABLET 30 tablet Sig: TAKE 1 TABLET EVERY DAY CASTRO: Yes MELOXICAM 15 MG TABLET 30 tablet Sig: TAKE 1 TABLET EVERY DAY CASTRO: Yes Date of last office visit in primary care: 10/04/17 Maria Luisa Last 2 Encounter Wt Readings: Date: Wt: 10/25/2017 154.2 kg (340 lb) 10/04/2017 152 kg (335 lb) Previous labs/tests for medication: Not applicable Please advise. Thank you. Molly Christiansen LPN 11/14/2017 11:37 AM Signed The following approved medication requests have been transmitted electronically. Signed Prescriptions Disp Refills gabapentin (NEURONTIN) 600 mg tablet 30 tablet 3 Sig: TAKE 1 TABLET AT BEDTIME CASTRO: No Authorizing Provider: LACY ROBERSON citalopram (CELEXA) 20 mg tablet 30 tablet 3 Sig: TAKE 1 TABLET EVERY DAY CASTRO: No Authorizing Provider: LACY ROBERSON meloxicam (MOBIC) 15 mg tablet 30 tablet 3 Sig: TAKE 1 TABLET EVERY DAY CASTRO: No Authorizing Provider: LACY ROBERSON LPN Allergies As of Date: 11/10/2017 Noted Allergy Reaction BUTRANS (BUPRENORPHINE) 02/03/2016 14 - Other: See Comments Comments: Shallow breathing, itching PENICILLINS 07/22/2014 4 - Hives RITALIN (METHYLPHENIDATE ANALOGUE*07/22/2014 4 - Hives Date Reviewed: 10/25/2017 Reviewed by: Molly Galeas (Clinical Support Associate) MAGUI [place] - Fully Assessed Reason for Visit: Refill Request [94] Order(s):gabapentin (NEURONTIN) 600 mg tabletTAKE 1 TABLET AT BEDTIMEDisp: 30 tabletRfl: 3 citalopram (CELEXA) 20 mg tabletTAKE 1 TABLET EVERY DAYDisp: 30 tabletRfl: 3 meloxicam (MOBIC) 15 mg tabletTAKE 1 TABLET EVERY DAYDisp: 30 tabletRfl: 3 Prescriptions as of 11/10/2017 Sig: GABAPENTIN 600 MG TABLET TAKE 1 TABLET AT BEDTIME CITALOPRAM 20 MG TABLET TAKE 1 TABLET EVERY DAY MELOXICAM 15 MG TABLET TAKE 1 TABLET EVERY DAY DIVALPROEX 500 MG TABLET,GISSELLE* Take 1,000 mg by mouth daily * RISPERIDONE 1 MG TABLET Take 1 mg by mouth daily at b* METHOCARBAMOL 500 MG TABLET TAKE 1 TABLET THREE TIMES RUI* COMPOUNDED PRESCRIPTION Why weight program at [facility] OMEPRAZOLE 20 MG CAPSULE,GISSELLE* Take 1 capsule by mouth daily* TRIAMCINOLONE ACETONIDE 10 MG* Intralesional kenalog 10 mg/m* FLUTICASONE 50 MCG/ACTUATION * Use 2 Sprays in each nostril * ALBUTEROL SULFATE HFA 90 MCG/* Inhale 2 Puffs as instructed * VOLTAREN 1 % TOPICAL GEL Problem List As Of Date 11/10/2017 Noted Resolved ADHD (attention deficit hyperactivity disorder)* More... Depression [F32.9] More... Anxiety [F41.9] More... Chronic pain in shoulder [M25.519, G89.29] More... Morbid obesity with BMI of 45.0-49.9, adult (HC*INVALID FOR* More... 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 If too soon, we will put new RX on hold for next cycle. Sig: TAKE 1 TABLET AT BEDTIME Disc: Reason for discontinue is not on file. citalopram (CELEXA) 20 mg tablet 30 t* 2 08/22/2017 11/14/2017 Cmt: Med-sync patient. If too soon, we will put new RX on hold for next cycle. Sig: TAKE 1 TABLET EVERY DAY Disc: Reason for discontinue is not on file. meloxicam (MOBIC) 15 mg tablet 30 t* 3 07/18/2017 11/14/2017 Cmt: Med-sync patient. If too soon, we will put new RX on hold for next cycle. Sig: TAKE 1 TABLET EVERY DAY Disc: Reason for discontinue is not on file. Encounter Status:Closed by MELODY CHRISTIANSEN LPN on 11/14/17 ALLERGIES ALLERGIES DATE TYPE / NAME / CODE REACTION SEVERITY SOURCE CODE 09/29/2018 Drug methylphenidate Hives Unknown [place] Allergy/41 HCl/[id number](RXNORM Community 4881569([facility]) Repository 09/29/2018 Drug Penicillins/[id number] Hives Unknown Antwon Allergy/41 6(RXNORM) Community 2512339([facility]) Repository 09/29/2018 Drug buprenorphine/[id number] Rash Unknown [place] Allergy/41 632(RXNORM) Community 7270001([facility]) Repository 02/03/2016 DRUG BUPRENORPHINE OTHER: SEE C [facility] INGREDI/[address] [place] 4288101(SN Repository OMED CT) 07/22/2014 Drug PENICILLINS HIVES [facility] Class/[address] [place] [address](SNOM Repository ED CT) 07/22/2014 Drug METHYLPHENIDATE HIVES [facility] Class/4195 [address] [place] [address](SNOM Repository ED CT) ENCOUNTERS ENCOUNTERS ADMIT/DISCHARGE ACCOUNT ADMITTING ENCOUNTER LOCATION SOURCE NUMBER CLASS 11/07/2018 [id number] Ambulatory General acute hospital ing:HPRAD Repository 11/07/2018/11/07/19 [id number] Ambulatory BMSBuilding:B [place] [facility] MS[facility] Repository 11/01/2018 [id number] Ambulatory General acute hospital ing:PT Repository 09/29/2018/09/29/20 [id number] Emergency [address] ing:ED Repository 09/28/2018 [id number] Ambulatory General acute hospital ing:HPRAD Repository 09/28/2018/09/28/20 [id number] Ambulatory BMSBuilding:B [place] 18 MS.[facility] Repository 09/18/2018/09/18/20 [id number] Ambulatory BMSBuilding:B [place] 18 MS.[facility] Repository 09/13/2018/09/15/20 [id number] Ambulatory BMSBuilding:B Antwon 18 MS.CF.[facility] Repository 09/13/2018/09/15/20 [id number] Dylan Inpatient [address] ing:KV8Ocmi: Repository KE093Dxm: 1 09/11/2018/09/11/20 [id number] Ambulatory [address] [place] Repository 09/11/2018/09/12/20 [id number] Ambulatory [address] Repository 08/22/2018/08/22/20 [id number] Ambulatory BMSBuilding:B [place] 18 [facility] Repository 08/14/2018/08/15/20 [id number] Ambulatory [address] [place] Repository 07/04/2018/07/04/20 [id number] Ambulatory [address] Other [place] Repository 07/04/2018/07/05/20 [id number] Ambulatory [address] [place] Repository 06/28/2018 [id number] Ambulatory Y[facility] ing:PAT Repository 06/15/2018 [id number] Ambulatory BMSBuilding:Doyle OBRIEN [facility] Repository 05/24/2018 [id number] Ambulatory BMSBuilding:W Antwon [facility] Repository 05/17/2018/05/17/20 [id number] Ambulatory [address] [place] Repository 05/17/2018/05/18/20 [id number] Ambulatory [address] [place] Repository 05/10/2018/05/10/20 [id number] Ambulatory [address] Other [place] Repository 05/09/2018/05/09/20 [id number] Ambulatory BMSBuilding:Doyle Ramirez MS.PRADEEP [facility] Repository 03/22/2018/03/23/20 [id number] Ambulatory [address] [place] Repository 03/06/2018/03/07/20 [id number] Ambulatory [address] [place] Repository 02/17/2018/02/22/20 [id number] Ambulatory [address] [place] Repository 02/16/2018 [id number] Ambulatory [facility] [address] [place] Repository 02/03/2018/02/04/20 [id number] Ambulatory Antwon Kapoor [address] [place] [address] ing:PT Repository 01/18/2018/01/19/20 [id number] Ambulatory [address] Repository PAYERS PAYERS ENCOUNTER GUARANTOR PAYER SUBSCRIBER SOURCE 11/07/2018 MCKAYLA SOLORZANO Primary MCKAYLA SOLORZANO An[address] [id number] LISHA Insurance:CARESOURCEP IIDOB: [facility] JONAS Number: [id number] Health Center [address]Kvt: [id number] Repository Date:2018-11-07P O (PK) [address]129ATTN: [place] [address]YZ: 11/07/2018 Secondary NOT GIVENUNK Antwon Insurance:SELF PAY [facility] Number: Effective Repository Date:2018-11-07 11/07/2018 MCKAYLA SOLORZANO Primary MCKAYLA SOLORZANO [address] [id number] LISHA Insurance:CARESOURCEP IIDOB: Community LNAPT Carlanahi JONAS Number: [id number] Health Center [address]Jop: [id number] Repository Date:2018-09-28P O () [address]ATTN: [place] [address]DK: 11/07/2018 Secondary NOT GIVENUNK Antwon Insurance:SELF PAY [facility] Number: Effective Repository Date:2018-10-26 11/01/2018 MCKAYLA SOLORZANO Primary MCKAYLA SOLORZANO [address] [id number] LISHA Insurance:CARESOURCEP IIDOB: Community LNAPT Carlanahi JONAS Number: [id number] Health Center [id number]: [id number] Repository Date:2018-10-16 O () [address]ATTN: [place] [address]WQ: 11/01/2018 Secondary NOT GIVENUNK Yoder Insurance:SELF PAY [facility] Number: Effective Repository Date:2018-10-16 09/29/2018 MCKAYLA SOLORZANO Primary MCKAYLA [address] [id number] LISHA Insurance:CARESOURCEP IIDOB: Community LNAPT Carlanahi JONAS Number: [id number] Health Center [address]Zlj: [id number] Repository Date:2018-09-29P O () [address]ATTN: [place] [address]JK: 09/29/2018 Secondary NOT GIVENUNK Yoder Insurance:SELF PAY [facility] Number: Effective Repository Date:2018-09-29 09/28/2018 MCKAYLA SOLORZANO Primary MCKAYLA [address] [id number] LISHA Insurance:CARESOURCEP IIDOB: Community LNAPT PAWANanahi Number: [id number] Health Center [address]Xbd: [id number] Repository Date:2018-09-28P O (HP) [address]ATTN: [place] [address]PI: 09/28/2018 Secondary NOT GIVENUNK Antwon Insurance:SELF PAY [facility] Number: Effective Repository Date:2018-09-28 09/28/2018 MCKAYLA SOLORZANO Primary MCKAYLA SOLORZANO Antwon [id number] LISHA Insurance:CARESOURCEP IIDOB: Community [facility] JONAS Number: [id number] Health Center [address]Ztk: [id number] Repository Date:2018-08-25P O (HP) [address]ATTN: [place] [address]WY: 09/28/2018 Secondary NOT GIVENUNK Yoder Insurance:SELF PAY [facility] Number: Effective Repository Date:2018-09-25 09/18/2018 MCKAYLA SOLORZANO Primary MCKAYLA SOLORZANO [address] [id number] LISHA Insurance:CARESOURCEP IIDOB: Community LNAPT [facility] SystemPAWANanahi Number: [id number] Health Center [address]Drw: [id number] Repository Date:2018-09-15P O (HP) [address]ATTN: [place] [address]PF: 09/18/2018 Secondary NOT GIVENUNK Yoder Insurance:SELF PAY [facility] Number: Effective Repository Date:2018-09-18 09/13/2018 MCKAYLA SOLORZANO Primary MCKAYLA SOLORZANO [address] [id number] LISHA Insurance:CARESOURCEP IIDOB: Community LNAPT CarlPAWANjuvegómez Number: [id number] Health Center [address]Dty: [id number] Repository Date:2018-08-25P O (HP) [address]ATTN: [place] [address]LV: 09/13/2018 Secondary NOT GIVENUNK Antwon Insurance:SELF PAY [facility] Number: Effective Repository Date:2018-09-13 09/13/2018 MCKAYLA SOLORZANO Primary MCKAYLA SOLORZANO Y[address] [id number] LISHA Insurance:CARESOURCEP IIDOB: Community LNAPT Carljuve JONASicy Number: [id number] Health Center [address]Fnw: [id number] Repository Date:2018-08-25P O (HP) [address]ATTN: [place] [address]IN: 09/13/2018 Secondary NOT GIVENUNK Yoder Insurance:SELF PAY [facility] Number: Effective Repository Date:2018-08-25 08/22/2018 MCKAYLA SOLORZANO Primary MCKAYLA SOLORZANO Yoder [id number] LISHA Insurance:CARESOURCEP IIDOB: Community LNAPT [address] [place], [place] [address]juvegómez Number: [id number] Health Center [address]Ylp: [id number] Repository Date:2018-08-01P O (HP) [address]ATTN: [place] [address]PP: 08/22/2018 Secondary NOT GIVENUNK Yoder Insurance:SELF PAY [facility] Number: Effective Repository Date:2018-08-22 06/28/2018 MCKAYLA SOLORZANO Primary MCKAYLA SOLORZANO Y[address] [id number] LISHA Insurance:CARESOURCEP IIDOB: Community LNAPT [address] [place], [place] [address]juveicy Number: [id number] Health Center [address]Kjb: [id number] Repository Date:2018-05-10P O (HP) [address]ATTN: [place] [address]VC: 06/28/2018 Secondary NOT GIVENUNK Yoder Insurance:SELF PAY [facility] Number: Effective Repository Date:2018-05-10 06/15/2018 MCKAYLA SOLORZANO Primary NOT GIVENUNK Antwon [id number] LISHA Insurance:SELF PAY [facility] LNAPT 12[facility] [address]Yoa: Number: Effective Repository Date:2018-05-10 (HP) 05/24/2018 MCKAYLA SOLORZANO Primary NOT GIVENUNK Yoder [id number] LISHA Insurance:SELF PAY [address] [address]Uto: Number: Effective Repository Date:2018-05-24 (HP) 05/09/2018 MCKAYLA SOLORZANO Primary MCKAYLA SOLORZANO Y[address] [id number] LISHA Insurance:CARESOURCEP IIDOB: [facility] [address] [place] [address] [facility] hospitalg[facility]mez Number: [id number] Health Center [address]Pen: [id number] Repository Date:2018-04-26P O () [address]ATTN: [place] [address]DF: 05/09/2018 Secondary NOT GIVENUNK Yoder Insurance:SELF PAY [facility] Number: Effective Repository Date:2018-05-09 02/03/2018 MCKAYLA SOLORZANO Primary MCKAYLA SOLORZANO Yoder [id number] LISHA Insurance:CARESOURCEP IIDOB: Community [address]mez Number: [id number] Health Center [address]Ghu: [id number] Repository Date:2014-06-17P O () [address]ATTN: [place] [address]LQ: 02/03/2018 Secondary NOT GIVENUNK Antwon Insurance:SELF PAY [facility] Number: Effective Repository Date:2017-08-25
== END ==
PROVIDERS: Family Provider Internal Medicine; PCP Internal Medicine; Referring Provider Orthopaedic Surgery; Visit Provider Orthopaedic Surgery
DX: M25.562 Pain in left knee (principal)
CPT/HCPCS: 73560

== ENCOUNTER 2018-09-29 20:13 | Emergency (ER) | payer MEDICAID, SELFPAY ==
[2018-09-28 15:48] VITALS: BMI 53.5
[2018-09-29 20:13] VITALS: BP 151/76; PULSE 100; RESP 17; TEMP 36.3; O2SAT 98; BMI 51.7
--- NOTE | 2018-09-29 20:30 | US_ITS ---
STUDY: VENOUS DOPPLER ULTRASOUND - LEFT LOWER EXTREMITY REASON FOR EXAM: Male, 38 years old. LT POSTERIOR CALF PAIN AFTER EXERCISE TODAY...PT HAD LT KNEE SX LAST WEEK TECHNIQUE: Ultrasound evaluation of the deep vein system to include oliveira-scale imaging and compression was performed. Oliveira-scale imaging and Doppler sonographic evaluation, including duplex spectral analysis and qualitative color flow sonography, was performed. COMPARISON: None. FINDINGS: Common Femoral Vein: Normal compression, spontaneity and augmentation. Normal color Doppler. Common Femoral Vein/Greater Saphenous Junction: Normal compression, spontaneity and augmentation. Normal color Doppler. Deep Femoral Vein: Normal compression, spontaneity and augmentation. Normal color Doppler. Femoral Proximal: Normal compression, spontaneity and augmentation. Normal color Doppler. Femoral Middle: Normal compression, spontaneity and augmentation. Normal color Doppler. Femoral Distal: Normal compression, spontaneity and augmentation. Normal color Doppler. Popliteal Vein: Normal compression, spontaneity and augmentation. Normal color Doppler. Posterior Tibial Vein: Normal compression, spontaneity and augmentation. Normal color Doppler. Peroneal Vein: Normal compression, spontaneity and augmentation. Normal color Doppler. US/Venous Duplex Imag/Limited/Uni IMPRESSION: Normal venous Doppler ultrasound of the lower extremity. Electronically Signed: Luis Armando Mcintosh MD at 21:16 EST , Service support ,
--- NOTE | 2018-09-29 21:09 | ED.DCSUM_ITS ---
- ER Visit Summary Date of Service: 09/29/18 Chief Complaint: Left leg pain and swelling History of Present Illness: The patient is a 38 M who is 16 days postop left knee surgery that her Dylan. Patient has had problems with left leg swelling. Tonight he had pain in the medial portion of the calf and [place] regional telecommunications specialist asked the patient come in to rule out DVT. Patient denies chest pain or shortness of breath. Physical Examination: Blood pressure is 151/76, otherwise unremarkable. Head neck examination is unremarkable. Heart is regular rate and rhythm. Lung sounds clear. Abdomen soft nontender. Left lower extremity reveals generalized edema. Anterior left knee incision is clean and intact. There is no significant erythema. He has minimal tenderness of the calf. Test Results: Venous ultrasound of the left leg is unremarkable with no sign of DVT. Emergency Department Course and Treatment: Test results are discussed with the patient. He will continue his pain medication at home and follow-up with orthopedics next week. Treatment Plan: Disposition: Discharge Impression: Postop pain This note was generated with [employer] dictation software. It may contain incorrect words, spelling, and punctuation that were not noted in review of the chart prior to signing ED Disposition - Plan for ED Patient: Disposition: Home or Assisted Living Chief Complaint: Lower Extremity Injury Instructions: ED Post Op Pain Referrals: Leticia Richardson DO [STAFF PHYSICIAN] - Additional Instructions: No evidence of DVT on your ultrasound tonight - follow-up with Dr Richardson early next week.
[2018-09-29 21:12] VITALS: BP 143/69; PULSE 97; RESP 18; TEMP 36.3
[2018-09-29 21:14] VITALS: BP 143/69; PULSE 98; O2SAT 93
--- OUTSIDE RECORDS SUMMARY | 2019-01-03 07:51 | XMS RPT_ITS ---
:1980 Author Organization OHIP Support Name Relationship Address Phone RASHAD ABE Unavailable [address] + [address] [place] [address] SOLORZANOWILLIAM SALASTHIA Unavailable [address] + [address] [place] [address] UE Unavailable Unavailable Unavailable ABE SOLORZANO Unavailable [address] + [address] [place] [address] SLOAN SOLORZANOA Unavailable [address] + [address] [place] [address] UE Unavailable Unavailable Unavailable ABE SOLORZANO Unavailable [address] + [address] [place] [address] SOLORZANOSLOAN SALASA Unavailable [address] + [address] [place] [address] UE Unavailable Unavailable Unavailable ABE SOLORZANO Unavailable [address] + [address] [place] [address] WILLIAM SOLORZANOTHIA Unavailable [address] + [address] [place] [address] UE Unavailable Unavailable Unavailable SLOAN SOLORZANOA Unavailable [address] + [address] [place] [address] UE Unavailable Unavailable Unavailable SLOAN SOLORZANOA Unavailable [address] + [address] [place] [address] UE Unavailable Unavailable Unavailable SLOAN SOLORZANOA Unavailable [address] + [address] [place] [address] UE Unavailable Unavailable Unavailable ABE SOLORZANO Unavailable [address] + [address] [place] [address] SOLORZANO SEJAL Unavailable [address] + [address] [place] [address] UE Unavailable Unavailable Unavailable SOLORZANO, SEJAL Unavailable [address] + [address] [place] [address] UE Unavailable Unavailable Unavailable SOLORZANO, SEJAL Unavailable [address] + [address] [place] [address] UE Unavailable Unavailable Unavailable SOLORZANO, ESJAL Unavailable [address] + [address] [place] [address] UE Unavailable Unavailable Unavailable SOLORZANO, SEJAL Unavailable [address] + [address] [place] [address] UE Unavailable Unavailable Unavailable SOLORZANO, SEJAL Unavailable [address] + [address] [place] [address] UE Unavailable Unavailable Unavailable SOLORZANO SEJAL Unavailable [address] [place] [address] SOLORZANO, ABE Unavailable [address] + [address] [place] [address] UE Unavailable Unavailable Unavailable SOLORZANOWILLIAMSEJAL Unavailable [address] [place] [address] SOLORZANO, ABE Unavailable [address] + [address] [place] [address] UE Unavailable Unavailable Unavailable Care Team Providers Name Role Phone GANTARENEERA Attending Unavailable GANTA, LACY Referring Unavailable TONY PEDROZA (CONTRACTS ATTORNEY) Attending Unavailable GANTA, LACY Referring Unavailable MIKAYLA TOMAS (RD) Attending Unavailable TONY PEDROZA (CONTRACTS ATTORNEY) Attending Unavailable GANTA, LACY Attending Unavailable GANTA, LACY Referring Unavailable CHARY WELCH (CONTRACTS ATTORNEY) Attending Unavailable GANTA, LACY Attending Unavailable GANTA, LACY Referring Unavailable JAMA ANDERSON (PT) Attending Unavailable RAFFI IBARRA Referring Unavailable CHARY WELCH (CONTRACTS ATTORNEY) Referring Unavailable Leticia Richardson Attending Unavailable Gustavota, [...] Unavailable Ganta, Lacy Primary Care Unavailable Wayt, Gerosn Attending Unavailable Ganta, Lacy Referring Unavailable PROBLEMS PROBLEMS DATE TYPE CONDITION / CODE ATTENDING STATUS SOURCE 11/07/2018 Unknown M25.562 - Pain in Brandyn Jimenezew Active [place] left knee / Community M25.562(ICD-10) Hospital Repository 10/02/2018 Unknown 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, 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, 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 / Hospital M94.262(ICD-10) Repository 10/02/2018 Unknown 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 - Other Chicorelli, 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, [facility] left knee / Hospital M13.862(ICD-10) Repository 10/02/2018 Unknown M65.862 - Other Ch[place]orelli, Active [place] synovitis and [facility] tenosynovitis, left Hospital lower leg / Repository M65.862(ICD-10) 10/02/2018 Unknown S83.282A - Other Chicorelli, Active [place] tear of lateral [facility] meniscus, current Hospital injury, left knee, Repository initial encounter / S83.282A(ICD-10) 09/18/2018 Unknown G89.18 - Other acute Chicorelli, Active [place] postprocedural pain [facility] / G89.18(ICD-10) Hospital Repository 09/11/2018 Active Morbid (severe) [facility] [place] obesity due to Clinic Main excess calories / [place] E66.01(ICD-10) Repository 09/11/2018 Active Vitamin D [facility] [place] deficiency, [facility] Main unspecified / [place] E55.9(ICD-10) Repository 07/04/2018 Active Radiculopathy, [facility] [place] lumbar region / Clinic Other M54.16(ICD-10) [place] Repository 06/28/2018 Unknown Z01.810 - Encounter Raffi Booth Active [place] for preprocedural [facility] examination / Repository Z01.810(ICD-10) 05/17/2018 Active Pain in left toe(s) NA Active [place] / M79.675(ICD-10) Clinic Main [place] Repository 02/16/2018 Active Other intermediate card tender NA [facility]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 Clinic Main therapy / [place] Z79.899(ICD-10) Repository 02/09/2018 Unknown S16.1XXS - Strain of RAFFI IBARRA Active [place] muscle, fascia and Community tendon at neck Hospital level, sequela / Repository S16.1XXS(ICD-10) PROCEDURES PROCEDURES No Procedure Records FoundRESULTS RESULTS KNEE 4 OR MORE Observed: 11/07/2018 Status: F Source: [place] VIEWS 2:33 PM [facility] REPOSITORY [facility] Imaging Services [address] [place] [address] Knee 4 or More Views MR#: [id number] Acct: [id number] Name: MCKAYLA SOLORZANO II Rep #: [id number] : 1980 M 38 From: Calvin Rush MD PCP: Lacy Roberson MD Status: REG CLI Study: Knee 4 or More Views Date of Exam: 11/07/18 Exam# [id number] Ordering Dr: Gerson Jimenez STUDY: X-RAY - [...] , CC: MADELAINE Jimenez; Lacy Roberson MD Airplane Electrical Repairer: Signed ORTHOPEDIC VISIT Observed: 10/05/2018 Status: F Source: [place] REPORT 8:12 PM [facility] REPOSITORY [facility] [address] [place] [address] OFFICE VISIT Date of Service: 09/28/18 MR#: [id number] Acct: [id number] Name: MCKAYLA SOLORZANO HERIBERTO Rep #: [id number] : 1980 Provider: Leticia Richardson DO Age/Sex: 38/M Location: [facility] Status: Signed Intake Vital Signs09/28/18 Body Mass [...] EMERGENCY DEPARTMENT Observed: 09/30/2018 Status: F Source: [place] SUMMARY 12:05 AM [facility] REPOSITORY [facility] Medical Records Department [address] [place] [address] Emergency Department Summary 09/29/18 2109 MR#: [id number] Acct: [id number] Name: MCKAYLA SOLORZANO II Rep #: [id number] : 1980 38 From: Bobbi Martin MD [...] medial portion of the calf and PA technician semiconductor development asked the patient come in to rule [...] Postop pain This note was generated with [employer] dictation software. It may contain incorrect words, [...] your Primary Care Provider. Call [facility] ([phone]) or report to the closest Emergency Room. Call 911 if necessary. 09/30/18 0005 <Electronically signed by Bobbi Martin MD> Date Bobbi Martin MD Cosigner Signature (If Indicated): Date CC: Lacy Roberson MD DISCHARGE INSTRUCTION Observed: 09/29/2018 Status: F Source: [place] 9:11 PM [facility] REPOSITORY [facility] Medical Records Department [address] [place] [address] Discharge Instruction 09/29/182108 MR#: [id number] Acct: [id number] Name: MCKAYLA SOLORZANO II Rep #: [id number] : 1980 38 From: Bobbi Martin MD [...] problems, contact your Primary Care Provider. Call [facility] ([phone]) or report to the closest Emergency Room. Call 911 if necessary. 09/29/182110 <Electronically signed by Bobbi Martin MD> Date Bobbi Martin MD Cosigner Signature (If Indicated): Date CC: Lacy Roberson MD VENOUS DUPLEX Observed: 09/29/2018 Status: F Source: [place] IMAG/LIMITED/UNI 8:31 PM [facility] REPOSITORY [facility] Imaging Services [address] [place] [address] Venous Duplex Imag/Limited/Uni MR#: [id number] Acct: [id number] Name: MCKAYLA SOLORZANO II Rep #: [id number] : 1980 M 38 From: Luis Armando Mcintosh MD PCP: Lacy Roberson MD Status: [facility] ER Study: Venous Duplex Imag/Limited/Uni Date of Exam: 09/29/18 Exam# [id number] Ordering Dr: Bobbi Martin MD STUDY: VENOUS [...] CC: Lacy Roberson MD; Bobbi Martin MD Airplane Electrical Repairer: Signed KNEE 1 OR 2 VIEWS Observed: 09/28/2018 Status: F Source: [place] 4:04 PM [facility] REPOSITORY [facility] Imaging Services [address] [place] [address] Knee 1 or 2 Views MR#: [id number] Acct: [id number] Name: MCKAYLA SOLORZANO II Rep #: [id number] : 1980 M 38 From: Donald Martinez MD PCP: Lacy Roberson MD Status: REG CLI Study: Knee 1 or 2 Views Date of Exam: 09/28/18 Exam# [id number] Ordering Dr: Leticia Richardson DO STUDY: X-RAY [...] the lateral femorotibial compartment. Electronically Signed: Donald Martniez MD at 9:42 EST Tel , Service support , CC: Leticia Richardson DO; Lacy Roberson MD Airplane Electrical Repairer: Signed OPERATIVE REPORT Observed: 09/20/2018 Status: F Source: [place] 2:35 PM [facility] REPOSITORY [facility] Medical Records Department [address] [place] [address] Operative Report 09/13/18 1118 MR#: [id number] Acct: [id number] Name: MCKAYLA SOLORZANO HERIBERTO Rep #: [id number] : 1980 38 From: Leticia Richardson DO PCP: Lacy Roberson MD Status: DIS IN Y Location: [place] [address]-1 Report of Operation Date of Procedure: 09/13/18 Pre-Operative Diagnosis: left knee patellofemoral chondromalacia/arthritis, lateral meniscus tear, synovitis Post-Operative Diagnosis: same Surgery/Procedure Performed:: salk, partial lat meniscectomy, synovectomy, lateral release, open tibial tubercle osteotomy office mover: Gerson Jimenez Type of Anesthesia:: General Anesthesiologist: [...] or concerns This note was generated with [employer] software. It may contain incorrect words, spelling, [...] ORTHOPEDIC VISIT Observed: 09/19/2018 Status: F Source: [place] RE[place] 4:06 PM [facility] REPOSITORY [facility] [address] [place] [address] OFFICE VISIT Date of Service: 09/18/18 MR#: [id number] Acct: [id number] Name: MCKAYLA SOLORZANO HERIBERTO Rep #: [id number] : 1980 Provider: MADELAINE Jimenez Age/Sex: 38/M Location: [facility] Status: Signed Intake Intake Visit Reasons: knee [...] knee that is not currently controlled with Callahan. He does have it propped up at [...] Percocet. He is to stop taking the Callahan altogether. He is to continue to not [...] 09/15/2018 Status: F Source: [place] 3:27 PM [facility] REPOSITORY [facility] Medical Records Department [address] [place] [address] Instructions for Home/Discharge Instructions 09/15/18 1507 MR#: [id number] Acct: [id number] Name: MCKAYLA SOLORZANO II Rep #: [id number] : 1980 38 From: Gerson BURKETT PCP: [...] mg PO QHS 05/24/18 Hydrocodone Bitart/Apap 5-325 [Callahan 5MG-325MG] 1 - 2 tablet PO Q6H PRN PRN 5 Days #40 tablet 11/28/18 The following prescriptions were given: Hydrocodone Bitart/Apap 5-325 [Callahan 5MG-325MG] 1 - 2 tablet PO Q6H PRN PRN 5 Days #40 tablet PRN Reason: Pain Primary Care Physician: Lacy Roberson MD [Primary Care Provider] - Test Results: Test results from this visit will be discussed in further detail at your follow-up appointment, if applicable. Please Follow Up With: Leticia Richardson DO - [phone] When: 3-4 days (Tuesday or Tuesday) Physician [...] 2 VIEWS Observed: 09/13/2018 Status: F Source: [place] 2:24 PM [facility] REPOSITORY [facility] Imaging Services [address] [place] [address] Knee 1 or 2 Views MR#: [id number] Acct: [id number] Name: MCKAYLA SOLORZANO II Rep #: [id number] : 1980 M 38 From: Donald Martinez MD PCP: Lacy Roberson MD Status: ADM IN Study: Knee 1 or 2 Views Date of Exam: 09/13/18 Exam# [id number] Ordering Dr: Leticia Richardson DO STUDY: X-RAY - LEFT KNEE REASON FOR EXAM: Surgery. TECHNIQUE: 3 fluoroscopic view(s) of the knee. COMPARISON: Radiographs 03/28/2017. FINDINGS: Status post patellar realignment with 2 orthopedic screws without demonstrated complication. Electronically Signed: Donald Martinez MD at 15:39 EST Tel , Service support , RAD/Knee 1 or 2 Views CC: Leticia Richardson DO; Lacy Roberson MD Airplane Electrical Repairer: Signed DISCHARGE INSTRUCTION Observed: 09/13/2018 Status: F Source: [place] 1:28 PM [facility] REPOSITORY [facility] Medical Records Department [address] [place] [address] Instructions for Home/Discharge Instructions 09/13/18 1116 MR#: [id number] Acct: [id number] Name: MCKAYLA SOLORZANO HERIBERTO Rep #: [id number] : 1980 38 From: Leticia Richardson DO [...] mg PO QHS 05/24/18 Hydrocodone Bitart/Apap 5-325 [Callahan 5MG-325MG] 1 - 2 tablet PO Q6H PRN PRN 5 Days #40 tablet 09/13/18 The following prescriptions were given: Hydrocodone Bitart/Apap 5-325 [Callahan 5MG-325MG] 1 - 2 tablet PO Q6H PRN PRN 5 Days #40 tablet PRN Reason: Pain Primary Care Physician: Lacy Roberson MD [Primary Care Provider] - Test Results: Test results from this visit will be discussed in further detail at your follow-up appointment, if applicable. Please Follow Up With: Leticia Richardson, - [phone] 09/13/18 9533 <Electronically signed by Leticia Richardson DO> Date [...] VITD, TSH #### [facility] [address] [place], [place] [address] TSH Collected: 09/11/2018 Status: F Source: [place] 9:25 AM [facility] REPOSITORY TYPE CODE TESTS RESULT OUT OF RANGE REFERENCE UNITS LAB TSH 0.400-5.500 uU/mL TSH 2.590 Performed By: #### VITD, TSH #### [facility] [address] [place] [address] VALPROIC ACID Collected: 09/11/2018 Status: F Source: [place] 9:25 AM [facility] REPOSITORY TYPE CODE TESTS RESULT OUT OF REFERENCE UNITS RANGE LAB VPA(LOINC) 50-100 ug/mL Low Valproic Acid 34.3 Performed By: #### VPA, CBCDIF, CMP, PROL #### [facility] Routine Lab [address] [place] [address] CBC AND DIFFERENTIAL Collected: 09/11/2018 Status: F Source: [place] 9:25 AM [facility] REPOSITORY TYPE CODE TESTS RESULT OUT [...] Abs Lymph 3.24 LAB AMONO(LOIN % C) Harnett% 9.4 LAB AAMONO(JENNIFER <0.87 k/uL NC) Abs Harnett 0.76 LAB AEOS(LOINC % ) Eosin% 2.3 LAB AAEOS(LOIN <0.46 k/uL C) Abs Eosin 0.19 LAB ABASO(LOIN % C) Baso% 0.6 LAB AABASO(JENNIFER <0.11 k/uL NC) Abs Baso 0.05 LAB AUNRBC(JENNIFER 0 /100 WBC NC) NRBCs 0.0 LAB ABNRBC(JENNIFER <0.01 k/uL NC) Absolute nRBC <0.01 LAB DTYP(LOINC ) DTYPE ADIFF Performed By: #### VPA, CBCDIF, CMP, PROL #### [facility] Routine Lab [address] [place] [id number] COMP METABOLIC PANEL Collected: 09/11/2018 Status: F Source: [place] 9:25 AM CLINIC REFERENCE REPOSITORY TYPE CODE [...] By: #### VPA, CBCDIF, CMP, PROL #### [facility] Routine Lab [address] [place], [place] [address] PROLACTIN Collected: 09/11/2018 Status: F Source: [place] 9:25 AM CLINIC REFERENCE REPOSITORY TYPE CODE TESTS RESULT OUT OF REFERENCE UNITS RANGE LAB PROL(LOINC 4.0-15.2 ng/mL ) High Prolactin 25.5 Performed By: #### VPA, CBCDIF, CMP, PROL #### [facility] Routine Lab [address] [place], [place] [address] PROGRESS Observed: 09/11/2018 Status: COMPLETED Source: [place] 8:15 AM [facility] REPOSITORY HNO ID: [id number] Author: Lacy Roberson Service: (none) Author Type: [...] of life. - [facility] Printed out info on basic of baritric surgery, the need for it and other related information 2. Vitamin D deficiency - ICD9: 268.9, ICD10: E55.9 - VITAMIN D 25 HYDROXY 3. Bipolar 1 disorder (HCC) - ICD9: 296.7, ICD10: F31.9 On divalporex, risperidol blood levels are being done to get it checked. LACY ROBERSON MD CNOV Observed: 09/11/2018 Status: COMPLETED Source: [place] 8:00 AM [facility] REPOSITORY Office Visit (INTMWS) MCKAYLA SOLORZANO II ([id number]) 1980 M Date Time Provider Department 09/11/18 8:00 AM LACY ROBERSON INTMWS During your visit today, we recorded the following information about you: Respiration Blood pressure Weight Height 16/minute 136/80 160.1 kg 1.727 m LACY ROBERSON MD 09/11/2018 8:47 AM Signed Reason for Visit Patient presents with: Established Patient: 3 month follow up Mckayal Solorzano II is a 38 year old [...] [facility]ed out info on basic of [...] 1 disorder (HCC) [F31.9] Order(s):[facility] [[id number]] Order #: [id number]: 1 TSH BLD [SQTSH] Order #: [id number] FUTURE VITAMIN D 25 HYDROXY [SQVITD] Order #: [id number] FUTURE Prescriptions as of 09/11/2018 Sig: FLUTICASONE [...] b* COMPOUNDED PRESCRIPTION Why weight program at [facility] TRIAMCINOLONE ACETONIDE 10 MG* Intralesional kenalog [...] ORTHOPEDIC VISIT Observed: 08/22/2018 Status: F Source: [place] RE[place] 1:58 PM [facility] REPOSITORY [facility] Orthopa[facility]ics [facility] Medicine [address] [facility] [address] [place] [address] OFFICE VISIT Date of Service: 08/22/18 MR#: [id number] Acct: [id number] Name: MCKAYLA SOLORZANO II Rep #: [id number] : 1980 Provider: Leticia Richardson DO Age/Sex: 37/M Location[place] [facility] [place]: Signed Intake Intake Visit Reasons: LEFT [...] do a partial lateral release. Explained that [facility] will cover post op patients while on [...] CC: PROGRESS Observed: 08/14/2018 Status: COMPLETED Source: [place] 5:16 PM [facility] [place] REPOSITORY HNO ID: [id number] Author: Winifred Wen Service: (none) Author Type: [...] bedtime COMPOUNDED PRESCRIPTION Why weight program at [facility] triamcinolone acetonide (KENALOG) 10 mg/mL injection [...] CNP CNOV Observed: 08/14/2018 Status: COMPLETED Source: [place] 4:45 PM [facility] REPOSITORY Office Visit (WSTR) MCKAYLA SOLORZANO II ([id number]) 1980 M Date Time Provider Department 08/14/18 4:45 PM WINIFRED WEN During your visit today, we recorded the following information about you: Temperature Pulse Respiration Blood pressure 98.5 degrees 106/minute 20/minute 126/74 Weight 153.8 kg Winifred FREDERIC Wen.CONTRACTS ATTORNEY 08/14/2018 5:20 PM Signed Subjective HPI Pt [...] bedtime COMPOUNDED PRESCRIPTION Why weight program at [facility] triamcinolone acetonide (KENALOG) 10 mg/mL injection [...] b* COMPOUNDED PRESCRIPTION Why weight program at [facility] TRIAMCINOLONE ACETONIDE 10 MG* Intralesional kenalog [...] 08/14/18 PROGRESS Observed: 07/04/2018 Status: COMPLETED Source: [place] 11:43 AM [facility] CAMP[facility] REPOSITORY HNO ID: [id number] Author: Sendy Garcia) REMBERTO Jackson Service: (none) Author Type: Clinical Battery Technician Type: Progress Notes Filed: 07/04/2018 11:44 AM Note Text: NAME:Mckayla Solorzano HERIBERTO DATE: July 04, 2018 CCF#: [id number] Spine X-Ray(s): Lumbar AP / LAT / / OBL COMPLETED TECH ID SIGN: SHIRLEY WELCHRADHA XR LUMBAR PARS 4V Observed: 07/04/2018 Status: F Source: [place] AP/LAT/OBL X2 10:09 AM CLINIC OTHER CAMPUS [...] IMPRESSION: Mild anterolisthesis at the lumbosacral junction Airplane Electrical Repairer: PSCB Transcribe Date/Time: Jul 04 2018 1:06P Dictated by : JABARI SAMUEL MD This examination was interpreted and the report reviewed and electronically signed by: JABARI SAMUEL MD on Jul 04 2018 1:07PM EST [id number] Observed: 07/04/2018 Status: COMPLETED Source: [place] 9:30 AM [facility] REPOSITORY Office Visit (PNMDNA) MCKAYLA SOLORZANO II ([id number]) 1980 M Date Time Provider Department 07/04/18 9:30 AM CHARY WELCH ([facility]) PNAZNA During your visit today, we recorded the following information about you: Pulse Weight 104/minute 151.5 kg Chary Welch APRN.CNP 07/04/2018 9:55 AM Signed SUBJECTIVE: Mckayla Solorzano II presents to [facility] Pain Management Department for a followup appointment [...] pain He reports she saw orthopedics in [place] and he will be having surgery on [...] on his left knee by orthopedics in [place] 3) encouraged daily walking, exercising and stretching 4) ordered lumbar x-ray. Will have Dr. Ibarra review for further recommendations. Patient is interested in injection 5) continue tramadol when necessary, gabapentin 600 mg daily and Robaxin 500 mg 3 times a day that are prescribed by outside providers 6) RTC x6 months This note was partially generated using [employer] voice recognition system. The above plan and management options were discussed at length with patient. Patient is in agreement with the above and verbalized understanding. Chary Welch APRN, CONTRACTS ATTORNEY July 04, 2018 Referring Provider: SELF [200] Allergies As of Date: 07/04/2018 Noted Allergy Reaction BUTRANS (BUPRENORPHINE) 02/03/2016 14 - Other: See Comments Comments: Shallow breathing, itching PENICILLINS 07/22/2014 4 - Hives RITALIN (METHYLPHENIDATE ANALOGUE*07/22/2014 4 - Hives Date Reviewed: 07/04/2018 Reviewed by: Teresa Romreo MA - Fully Assessed Reason for Visit: Established Patient [175] Low Back Pain [126] Left Shoulder [Other] Neck Pain [135] Primary Visit Diagnosis:Cervical myofascial strain, initial encounter [S16.1XXA] Other Visit Diagnoses:Cervicalgia [M54.2] Cervical myofascial strain, sequela [S16.1XXS] Radiculopathy, lumbar region [M54.16] Order(s):XR LUMBAR PARS DEFECT 4V AP/LAT/BOTH OBL [[id number]] Order #: [id number] FUTURE Prescriptions as of 07/04/2018 Sig: MELOXICAM [...] RUI* COMPOUNDED PRESCRIPTION Why weight program at [facility] TRIAMCINOLONE ACETONIDE 10 MG* Intralesional kenalog [...] 9/18/18 PROGRESS Observed: 07/04/2018 Status: COMPLETED Source: [place] 9:25 AM [facility] REPOSITORY HNO ID: [id number] Author: Chary Dos Santos (Liz Welch Service: (none) Author Type: Nurse Practitioner Type: Progress Notes Filed: 07/04/2018 9:55 AM Note Text: SUBJECTIVE: Mckayla Solorzano II presents to [facility] Pain Management Department for a followup appointment [...] pain He reports she saw orthopedics in [place] and he will be having surgery on [...] on his left knee by orthopedics in [place] 3) encouraged daily walking, exercising and stretching 4) ordered lumbar x-ray. Will have Dr. Ibarra review for further recommendations. Patient is interested in injection 5) continue tramadol when necessary, gabapentin 600 mg daily and Robaxin 500 mg 3 times a day that are prescribed by outside providers 6) RTC x6 months This note was partially generated using [employer] voice recognition system. The above plan and management options were discussed at length with patient. Patient is in agreement with the above and verbalized understanding. Chary Welch APRN, CONTRACTS ATTORNEY July 04, 2018 12 LEAD ELECTROCARDIOGRAM Observed: 05/26/2018 Status: F Source: [place] 2:03 PM [facility] REPOSITORY [facility] Cardiovascular Services [address] [place] [address] EKG - SDC 05/24/18 1322 MR#: [id number] Acct: [id number] Name: MCKAYLA SOLORZANO II Rep #: [id number] : 1980 37 From: Raffi Booth MD Attending Dr: Leticia Richardson DO Status: PRE SDC Ordering Dr: Jomar Britt MD Date: 05/24/18 Location: [facility] Sex: M C Admitted: Test Reason : Blood Pressure : / mmHG Vent. Rate : 093 BPM Atrial Rate : 093 BPM P-R Int : 152 ms QRS Dur : 096 ms QT Int : 364 ms P-R-T Axes : 032 020 037 degrees QTc Int : 452 ms Normal sinus rhythm Normal ECG Confirmed by LEOBARDO HUYNH, RAFFI ([id number]), commercial production editor UMM MARTIN ([id number]) on 05/26/2018 2:02:56 PM Referred By: Leticia Richardson Confirmed By:RAFFI BOOTH MD 05/26/18 1403 Date Raffi Booth MD CC: Leticai Rihcardson DO; Lacy Roberson MD; Jomar rBitt MD Date Dictated: 05/24/181321 Date Transcribed: 05/24/181321 Airplane Electrical Repairer: Signed BASIC METABOLIC Collected: 05/24/2018 Status: F Source: [place]TW[place] PROFILE (BMP) 2:51 PM [facility] REPOSITORY Order Comment: Comments: [id number] DRUG PANEL SERUM RTEMP TYPE CODE TESTS [...] Normal 10 Performed By: #### L500.2500 #### [facility] [address] [facility] [id number] HIV - [facility] Collected: 05/24/2018 Status: F Source: [place] 2:51 PM [facility] REPOSITORY TYPE CODE TESTS RESULT OUT OF RANGE REFERENCE UNITS LAB L3890.6005 Nonreactive Normal HIV - H Non-Reactive Performed By: #### L3890.6005 #### [facility] [address] [place], [place], [address] HEPATITIS ABC PROFILE Collected: 05/24/2018 Status: F Source: [place] 2:51 PM [facility] REPOSITORY TYPE CODE TESTS RESULT OUT OF RANGE REFERENCE UNITS LAB L3100.0200 Negative Normal HEP A Negative IgM 6734 LAB L3100.0300 Negative Normal HEP A Negative AB,T.6726 LAB L3100.0400 Negative Normal HB Negative SURF AG LAB L3100.0440 Negative Normal HB Negative CORE [id number] LAB L3100.0460 Negative Normal HEP B Negative [...] exists to indicate HCV infection. Performed at: [facility] [employer] [id number] Sports Medicine Trainer: Delmer Martell PhD, Phone: [phone] Performed By: #### L3000.0700 #### [facility] (refer to report for specific site) refer to report for address and phone number MISCELLANEOUS LAB Collected: 05/24/2018 Status: F Source: [place] PROCEDURE 2:51 PM [facility] REPOSITORY Order Comment: Comments: [id number] DRUG PANEL SERUM RTEMP Test(s) Ordered: [id number] DRUG PANEL SERUM RTEMP TYPE CODE TESTS RESULT OUT OF RANGE REFERENCE UNITS LAB L801.1541 Normal [facility] LAB TEST Result Comment: TEST RESULT LIMITS [...] developed and its performance characteristics determined by [employer]. It has not been cleared or approved by the Food and Drug Administration. THC,MS,WB/SP RFX Cannabinoid Confirmation Positive Tetrahydrocannabinol(THC) 1.2 ng/mL Carboxy-THC 53.0 ng/mL Hydroxy-THC 1.2 ng/mL Cannabinol Negative ng/mL Cannabidiol Negative ng/mL Confirmation threshold: 1.0 ng/mL TESTING PERFORMED AT [facility]. ORIGINAL REPORT ON FILE IN LAB CONTAINS ADDITIONAL TEST SITE INFORMATION. Performed By: #### L801.1541 #### [facility] [address] [place], [address] URIC ACID Collected: 05/17/2018 Status: F Source: [place] 10:37 AM [facility] REPOSITORY TYPE CODE TESTS RESULT OUT OF RANGE REFERENCE UNITS LAB URIC 4.0-8.1 mg/dL Uric Acid 7.3 Performed By: #### URIC #### [facility] [address] [place], [place] [address] PROGRESS Observed: 05/17/2018 Status: COMPLETED Source: [place] 9:55 AM [facility] REPOSITORY HNO ID: [id number] Author: Lacy Roberson Service: (none) Author Type: [...] since today morning. Last night he had ShotSpotter 3 medium pieces. He does not drink [...] DWAINE HERRERAOV Observed: 05/17/2018 Status: COMPLETED Source: [place] 9:20 AM [facility] REPOSITORY Office Visit (INTMWS) MCKAYLA SOLORZANO II ([id number]) 1980 M Date Time Provider Department 05/17/18 [...] since today morning. Last night he had Mobeons 3 medium pieces. He does not drink [...] Morbid obesity with BMI of 45.0-49.9, adult ([facility]) [E66.01, Z68.42] Order(s):URIC ACID BLOOD [SQURIC] Order #: [id number] FUTURE POLYSOMNOGRAM (PSG)/HOME SLEEP APNEA TESTING (HSAT) [8365080] Order #: [id number] FUTURE Prescriptions as of 05/17/2018 Sig: MELOXICAM [...] RUI* COMPOUNDED PRESCRIPTION Why weight program at [facility] TRIAMCINOLONE ACETONIDE 10 MG* Intralesional kenalog [...] Status: F Source: [place] REPORT 10:47 AM [facility] REPOSITORY [facility] [address] [place] [address] OFFICE VISIT Date of Service: 05/09/18 MR#: [id number] Acct: [id number] Name: MCKAYLA SOLORZANO II Rep #: [id number] : 1980 Provider: Leticia Richardson DO Age/Sex: 37/M Location: [facility] Status: Signed Intake Intake Visit Reasons: CK [...] CC: PROGRESS Observed: 05/10/2018 Status: COMPLETED Source: [place] 4:45 PM [facility] OTHER CAMPUS REPOSITORY O ID: [id number] Author: Jama (Pt) Elvie Service: (none) Author Type: Physical Therapist Type: Progress Notes Filed: 05/10/2018 4:49 PM Note Text: Episode Visit Count: 1 Therapist That Will Oversee The Plan Of Care: Jama Anderson Start of Care Date: 05/10/18 Patient Identified by Name and Date of : Yes [facility] PHYSICAL CAPACITY EVALUATION Mckayla Solorzano HERIBERTO [id number] 05/10/2018 Dock Guard: Jama Anderson, PT Referring Physician: Raffi Ibarra [...] Billing: Diana: Physical Performance Test (and doc) (01550): 1:1 time: 160 minutes (11 units) Total time: 160 minutes Jama Anderson PT CNTHERAPY Observed: 05/10/2018 Status: COMPLETED Source: [place] 1:30 PM CLINIC OTHER CAMPUS REPOSITORY OT/PT/Speech Visit (PTMCRM) MCKAYLA SOLORZANO II ([id number]) 1980 M Date Time Provider Department 05/10/18 1:30 PM JAMA ANDERSON (PT) [facility] Date Time Provider Department Center 05/10/2018 1:30 PM [id number], REBECCA *[facility] Reason for Visit: Functional Capacity Eval [0009] Patient Education [91] PT Discharge [752] Primary [...] RUI* COMPOUNDED PRESCRIPTION Why weight program at [facility] TRIAMCINOLONE ACETONIDE 10 MG* Intralesional kenalog [...] by Name and Date of : Yes [facility] PHYSICAL CAPACITY EVALUATION Mckayla Solorzano II [id number] 05/10/2018 Dock Guard: Jama Anderson PT Referring Physician: Raffi Ibarra [...] Billing: Diana: Physical Performance Test (and doc) (08624): 1:1 time: 160 minutes (11 units) Total time: 160 minutes Jama Anderson, ANA LUIS Observed: 03/22/2018 Status: COMPLETED Source: [place] 2:00 PM [facility] [place] REPOSITORY Office Visit (INTMWS) MCKAYLA SOLORZANO II ([id number]) 1980 M Date Time Provider Department 03/22/18 2:00 PM TONY PEDROZA ([facility]) INTMWS During your visit today, we recorded [...] minutes at lest 3 times a day OADocphinS website checked and validated. All prescriptions have been APPROPRIATELY filled. No suspicious activity was identified.- 03/22/2018 by Tony Pedroza APRN.CONTRACTS ATTORNEY - reviewed SE, medication expectations, required weight loss of 5%, monthly monitoring and medication duration of use (3 months on 6 months off) Prescription instructions reviewed with patient as applicable. Potential red flag symptoms discussed with the patient. Reviewed appropriate action plan to take if red flag symptoms occur. Patient agreeable to treatment plan. Tony Pedroza APRN.CONTRACTS ATTORNEY Referring Provider: SELF [200] Allergies As of [...] RUI* COMPOUNDED PRESCRIPTION Why weight program at [facility] TRIAMCINOLONE ACETONIDE 10 MG* Intralesional kenalog [...] 03/22/18 PROGRESS Observed: 03/22/2018 Status: COMPLETED Source: [place] 1:53 PM [facility] REPOSITORY HNO ID: [id number] Author: Tony (Magui) Arvind Service: (none) Author [...] minutes at lest 3 times a day PASSNFLY website checked and validated. All prescriptions have [...] APRN.MAGUI CNTHERAPY Observed: 03/08/2018 Status: COMPLETED Source: [place] 2:15 PM CLINIC OTHER CAMPUS REPOSITORY OT/PT/Speech Visit (PTMCRM) MCKAYLA SOLORZANO II ([id number]) 1980 M Date Time Provider Department 03/08/18 2:15 PM JAMA ANDERSON (PT) [facility] Date Time Provider Department Center 03/08/2018 2:15 PM [id number], REBECCA *PTMCRM [facility] Reason for Visit: Appointment Cancelled [1023] [...] RUI* COMPOUNDED PRESCRIPTION Why weight program at [facility] OMEPRAZOLE 20 MG CAPSULE,GISSELLE* Take 1 [...] PT PROGRESS Observed: 03/08/2018 Status: COMPLETED Source: [place] 7:57 AM [facility]AMP[facility] REPOSITORY HNO ID: [id number] Author: Jama LinoPt) Elvie Service: (none) Author Type: Physical Therapist Type: Progress Notes Filed: 03/08/2018 11:10 AM Note Text: The appointment was cancelled for this patient. Patient called to cancel appointment for today. Patient reports that his ride canceled on him. No transportation for FCE. Jama Anderson, PT PROGRESS Observed: 03/06/2018 Status: COMPLETED Source: [place] 1:15 PM [facility] REPOSITORY HNO ID: [id number] Author: Mikayla Tomas Service: (none) Author Type: Registered Dietitian Type: Progress Notes Filed: 03/06/2018 1:43 PM Note Text: [facility] Nutrition Therapy: Initial Assessment Patient states reason [...] 11 COMPOUNDED PRESCRIPTION Why weight program at [facility] Disp: 1 Each Rfl: 0 omeprazole [...] PM CNCNPATED Observed: 03/06/2018 Status: COMPLETED Source: [place] 1:15 PM [facility] REPOSITORY Education (NUTRWS) RASHADMCKAYLA Stewart II ([id number]) 1980 M Date Time Provider Department 03/06/18 1:15 PM MIKAYLA TOMAS) LISA Reason for Visit: Patient Education [91] Assessment [673] Progress Notes: Mikayla Tomas MS RD LD 03/06/2018 1:43 PM Signed [facility] Nutrition Therapy: Initial Assessment Patient states reason [...] 11 COMPOUNDED PRESCRIPTION Why weight program at [facility] Disp: 1 Each Rfl: 0 omeprazole [...] week. Document on: 03/06/2018 by: Mikayla Tomas [[id number]] of: Tunnel Man Worksheet Document on: 03/06/2018 by: Mikayla Tomas [[id number]] of: After Visit Summary Other instructions from [...] RUI* COMPOUNDED PRESCRIPTION Why weight program at [facility] OMEPRAZOLE 20 MG CAPSULE,GISSELLE* Take 1 capsule by mouth daily* TRIAMCINOLONE ACETONIDE 10 MG* Intralesional kenalog 10 mg/m* FLUTICASONE 50 MCG/ACTUATION * Use 2 Sprays in each nostril * ALBUTEROL SULFATE HFA 90 MCG/* Inhale 2 Puffs as instructed * VOLTAREN 1 % TOPICAL GEL Encounter Status:Closed by THOM CANADA, MIKAYLA on 03/06/18 LUIS Observed: 02/17/2018 Status: COMPLETED Source: [place] 3:00 PM [facility] REPOSITORY Office Visit (INTMWS) MCKAYLA SOLORZANO II ([id number]) 1980 M Date Time Provider Department 02/17/18 3:00 PM TONY PEDROZA ([facility]) INTMWS During your visit today, we recorded the following information about you: Temperature Pulse Respiration Blood pressure 98.5 degrees 96/minute 16/minute 128/84 Weight 146.5 kg Tony Pedroza ([facility]) 02/17/2018 3:08 PM Signed CC: Mckayla Stewart [...] activity was identified.- 02/17/2018 by Tony Pedroza APRN.CONTRACTS ATTORNEY - reviewed SE, medication expectations, required weight loss of 5%, monthly monitoring and medication duration of use (3 months on 6 months off) Prescription instructions reviewed with patient as applicable. Potential red flag symptoms discussed with the patient. Reviewed appropriate action plan to take if red flag symptoms occur. Patient agreeable to treatment plan. Tony Pedroza APRN.MAGUI Referring Provider: LACY ROBERSON [[id number]] Allergies As of Date: 02/17/2018 Noted Allergy [...] 30 tabletRfl: 0 CONSULT TO NUTRITION THERAPY [9054] Order #: [id number]: 1 Prescriptions as of 02/17/2018 Sig: PHENTERMINE [...] RUI* COMPOUNDED PRESCRIPTION Why weight program at [facility] OMEPRAZOLE 20 MG CAPSULE,GISSELLE* Take 1 [...] 02/17/18 PROGRESS Observed: 02/17/2018 Status: COMPLETED Source: [place] 2:49 PM [facility]IC MAIN [facility]AMPUS REPOSITORY O ID: [id number] Author: Tony Pedroza (Magui) Service: (none) Author [...] activity was identified.- 02/17/2018 by Tony Pedroza APRN.CONTRACTS ATTORNEY - reviewed SE, medication expectations, required weight [...] METABOLIC PANL Collected: 02/16/2018 Status: F Source: [place] 12:24 PM [facility] REPOSITORY TYPE CODE TESTS RESULT OUT OF REFERENCE UNITS RANGE LAB GLU 74-99 mg/dL Glucose 90 Result Comment: The [place] Diabetes Association (ADA) provides guidance for cutoff [...] Standards of Medical Care in Diabetes 2016, [place] Diabetes Association. Diabetes Care. 2016.39(Suppl 1). LAB [...] Performed By: #### BMP, LIPB, HBA1C #### [facility] [address] [place], [place] [address] LIPID PANEL, BASIC Collected: 02/16/2018 Status: F Source: [place] 12:24 PM [facility] REPOSITORY TYPE CODE TESTS RESULT [...] Desk Reference: National Heart, Lung, and Blood [place]. National Institutes of Health. 2001: NIH Publication No. 01-3305. 2. An International Atherosclerosis Society position paper: global recommendations for the management of dyslipidemia: executive summary, Atherosclerosis. 2014: 232(2):410-413. Performed By: #### BMP, LIPB, HBA1C #### [facility] [employer] [address] [place], [place] [address] HEMOGLOBIN A1C Collected: 02/16/2018 Status: F Source: [place] 12:24 PM [facility] REPOSITORY TYPE CODE TESTS RESULT OUT OF REFERENCE UNITS RANGE LAB HGBA1C 4.3-5.6 % Hemoglobin A1c 5.0 LAB HBA0 mg/dL Est. Average Glucose 97 Result Comment: eAG: (Estimated average glucose) is a calculated value from HgbA1c and is aircraft sales representative of the average blood glucose level in the last 2-3 month period. Performed By: #### BMP, LIPB, HBA1C #### [facility] [employer] [address] [place], [place] [address] PT D/C SUMMARY (1) Observed: 02/07/2018 Status: F Source: [place] 3:02 PM [facility] REPOSITORY [facility] [address] [place] [address]. [address] [place], [place] [address] Fax REHABILITATION SERVICES DISCHARGE SUMMARY MR#: [id number] Acct: [id number] Name: MCKAYLA SOLORZANO II Rep #: [id number] : 1980 37 From: Jabari Nicole PT, Cert. MDT, OCS Referring DrAvel: RAFFI IBARRA Status: REG R Insurance: [facility] - PT D/C Summary It has been [...] please feel free to call me at [phone]. Thank you for the referral of this patient. Sincerely, Jabari Nicole PT, <Electronically signed by Jabari Nicole PT, Cert. MDT, OCS> 02/07/18 1502 CC: Lacy Roberson MD; RAFFI IBARRA TIM Signed CNPTOUTREACH Observed: 01/31/2018 Status: COMPLETED Source: [place] 12:00 AM [facility] REPOSITORY Patient Outreach (FAMPST) MCKAYLA SOLORZANO II ([id number]) 1980 M Date Time Provider Department 01/31/18 [...] [Z79.899] Order(s):BASIC METABOLIC PNL [SQBMP] Order #: [id number] FUTURE Prescriptions as of 01/31/2018 Sig: X [...] RUI* COMPOUNDED PRESCRIPTION Why weight program at [facility] X OMEPRAZOLE 20 MG CAPSULE,GISSELLE* Take [...] 01/18/2018 Status: COMPLETED Source: [place] 6:19 PM [facility] REPOSITORY HNO ID: [id number] Author: Lacy Roberson Service: (none) Author Type: [...] Selma HERRERAOV Observed: 01/18/2018 Status: COMPLETED Source: [place] 6:00 PM [facility]IN [facility]AMPUS REPOSITORY Office Visit (INTMWS) MCKAYLA SOLORZANO II ([id number]) 1980 M Date Time Provider Department 01/18/18 [...] 0 POLYSOMNOGRAM (PSG)/HOME SLEEP APNEA TESTING (HSAT) [4362670] Order #: [id number] FUTURE Prescriptions as of 01/18/2018 Sig: PHENTERMINE [...] RUI* COMPOUNDED PRESCRIPTION Why weight program at [facility] OMEPRAZOLE 20 MG CAPSULE,GISSELLE* Take 1 [...] 01/18/18 CNCO Observed: 01/18/2018 Status: COMPLETED Source: [place] 12:00 AM [facility] REPOSITORY Letter Text Mckayla Solorzano II Department of Pain Management Raffi Ibarra MD [place] [address] January 18, 2018 RE: Mckayla Solorzano II [address] [facility] [address] :1980 To Whom it May Concern: This is to confirm that Mckayla Solorzano II had an appointment and was seen at the [facility] in the Department of Pain Management by Dr. Ibarra on 09/07/2017. Mckayla is seen in our [...] VALPROIC ACID Collected: 01/03/2018 Status: F Source: [place] 1:10 PM CLINIC REFERENCE REPOSITORY TYPE CODE TESTS RESULT OUT OF REFERENCE UNITS RANGE LAB VPA(LOINC) 50-100 ug/mL Valproic Acid 53.0 Performed By: #### VPA, PLTCT, CMP #### [facility] Routine Lab [address] [place], [place] [address] PLATELET COUNT Collected: 01/03/2018 Status: F Source: [place] 1:10 PM CLINIC REFERENCE REPOSITORY TYPE CODE TESTS RESULT OUT OF REFERENCE UNITS RANGE LAB PLTCT(LOINC 150-400 k/uL ) Low Platelet Count 142 Performed By: #### VPA, PLTCT, CMP #### [facility] Routine Lab [address] [place], [place] [address] COMP METABOLIC PANEL Collected: 01/03/2018 Status: F Source: [place] 1:10 PM CLINIC REFERENCE REPOSITORY TYPE CODE [...] Performed By: #### VPA, PLTCT, CMP #### [facility] Routine Lab [address] [place], [place] [address] OBSOLETE Observed: 11/10/2017 Status: COMPLETED Source: [place] 12:00 AM [facility] REPOSITORY Refill (INTMWS) MCKAYLA SOLORZANO II ([id number]) 1980 M Date Time Provider Department 11/10/17 [...] Date Reviewed: 10/25/2017 Reviewed by: Molly Galeas (Human Resources Clerk) MAGUI [place] - Fully Assessed Reason for [...] RUI* COMPOUNDED PRESCRIPTION Why weight program at [facility] OMEPRAZOLE 20 MG CAPSULE,GISSELLE* Take 1 [...] SOURCE CODE 09/29/2018 Drug methylphenidate Hives Unknown [place] Allergy/41 HCl/[id number](RXNORM Community 6574205([facility]) Repository 09/29/2018 Drug Penicillins/[id number] Hives Unknown [place] Allergy/41 6(RXNORM) Community 2812207([facility]) Repository 09/29/2018 Drug buprenorphine/K446779 Rash Unknown [place] Allergy/41 632(RXNORM) Community 7219528([facility]) Repository 02/03/2016 DRUG BUPRENORPHINE OTHER: SEE C [facility] INGREDI/[address] [place] [address]63[address](SN Repository OMED CT) 07/22/2014 Drug PENICILLINS HIVES [facility] Class/[address] [place] [address](SNOM Repository ED CT) 07/22/2014 Drug METHYLPHENIDATE HIVES [facility] Class/4[address] [place] [address](SNOM Repository ED CT) ENCOUNTERS ENCOUNTERS ADMIT/DISCHARGE ACCOUNT ADMITTING ENCOUNTER LOCATION SOURCE NUMBER CLASS 11/07/2018 [id number] [facility] ing:HPRAD Repository 11/07/2018/11/07/19 [id number] Ambulatory BMSBuilding:B [place] [address] MS.[facility] Repository 11/01/2018 [id number] [facility] ing:PT Repository 09/29/2018/09/29/20 [id number] Emergency [address] ing:ED Repository 09/28/2018 [id number] [facility] ing:HPRAD Repository 09/28/2018/09/28/20 [id number] Ambulatory BMSBuilding:B [place] [address] MS.[facility] Repository 09/18/2018/09/18/20 [id number] Ambulatory BMSBuilding:B [place] 18 MS.[facility] Repository 09/13/2018/09/15/20 [id number] Ambulatory BMSBuilding:B [place] 18 MS.CF.[facility] Repository 09/13/2018/09/15/20 [id number] Dylan Inpatient [address] ing:RO1Wrzo: Repository XT321Qpn: 1 09/11/2018/09/11/20 [id number] Ambulatory [address] [place] Repository 09/11/2018/09/12/20 [id number] Ambulatory [address] Repository 08/22/2018/08/22/20 [id number] Ambulatory BMSBuilding:B [place] 18 MS.[facility] Repository 08/14/2018/08/15/20 [id number] Ambulatory [address] [place] Repository 07/04/2018/07/04/20 [id number] Ambulatory [address] Other [place] Repository 07/04/2018/07/05/20 [id number] Ambulatory [address] [place] Repository 06/28/2018 [id number] Ambulatory [facility] ing:PAT Repository 06/15/2018 [id number] Ambulatory BMSBuilding:Doyle OBRIEN [facility] Repository 05/24/2018 [id number] Ambulatory BMSBuilding:W [place] [facility] Repository 05/17/2018/05/17/20 [id number] Ambulatory [address] [place] Repository 05/17/2018/05/18/20 [id number] Ambulatory [address] [place] Repository 05/10/2018/05/10/20 [id number] Ambulatory [address] Other [place] Repository 05/09/2018/05/09/20 [id number] Ambulatory BMSBuilding:Doyle Ramirez MS.PRADEEP [facility] Repository 03/22/2018/03/23/20 [id number] Ambulatory [address] [place] Repository 03/06/2018/03/07/20 [id number] Ambulatory [address] [place] Repository 02/17/2018/02/22/20 [id number] Ambulatory [address] [place] Repository 02/16/2018 [id number] Ambulatory [facility] [place] Repository 02/03/2018/02/04/20 [id number] Ambulatory [place] Kapoor [address] [place] [address] ing:PT Repository 01/18/2018/01/19/20 [id number] Ambulatory [address] Repository PAYERS PAYERS ENCOUNTER GUARANTOR PAYER SUBSCRIBER SOURCE 11/07/2018 MCKAYLA SOLORZANO Primary MCKAYLA SOLORZANO [place] [id number] LISHA Insurance:CARESOURCEP IIDOB: [facility] J[facility]: [id number] [address]Pkh: [id number] Repository Date:2018-11-07P O (HW) XOW 8886ATTN: [place] [address]FB: 11/07/2018 Secondary NOT GIVENUNK [place] Insurance:SELF PAY [facility] Number: Effective Repository Date:2018-11-07 11/07/2018 MCKAYLA SOLORZANO Primary MCKAYLA SOLORZANO [place] [id number] LISHA Insurance:CARESOURCEP IIDOB: Community LNAPT Carlanahi JONAS Number: [id number] Hospital [address]Lai: [id number] Repository Date:2018-09-28P O () [address]ATTN: [place] [address]DY: 11/07/2018 Secondary NOT GIVENUNK [place] Insurance:SELF PAY [facility] Number: Effective Repository Date:2018-10-26 11/01/2018 MCKAYLA SOLORZANO Primary MCKAYLA SOLORZANO [place] [id number] LISHA Insurance:CARESOURCEP IIDOB: Community LNAPT Carlanahi JONAS Number: [id number] Hospital [address]Mpw: [id number] Repository Date:2018-10-16 O () [address]ATTN: [place] [address]QG: 11/01/2018 Secondary NOT GIVENUNK [place] Insurance:SELF PAY [facility] Number: Effective Repository Date:2018-10-16 09/29/2018 MCKAYLA SOLORZANO Primary MCKAYLA [place] [id number] LISHA Insurance:CARESOURCEP IIDOB: Community LNAPT Carlanahi JONAS Number: [id number] Hospital [address]Pvk: [id number] Repository Date:2018-09-29P O () [address]ATTN: [place] [address]XX: 09/29/2018 Secondary NOT GIVENUNK [place] Insurance:SELF PAY [facility] Number: Effective Repository Date:2018-09-29 09/28/2018 MCKAYLA SOLORZANO Primary MCKAYLA [place] [id number] LISHA Insurance:CARESOURCEP IIDOB: Community LNAPT PAWANanahi Number: [id number] Hospital [address]Xur: [id number] Repository Date:2018-09-28P O (HP) [address]ATTN: [place] [address]UW: 09/28/2018 Secondary NOT GIVENUNK [place] Insurance:SELF PAY [facility] Number: Effective Repository Date:2018-09-28 09/28/2018 MCKAYLA SOLORZANO Primary MCKAYLA SOLORZANO [place] [id number] LISHA Insurance:CARESOURCEP IIDOB: Community [facility] JONAS Number: [id number] Hospital [address]Yji: [id number] Repository Date:2018-08-25P O (HP) [address]ATTN: [place] [address]BB: 09/28/2018 Secondary NOT GIVENUNK [place] Insurance:SELF PAY [facility] Number: Effective Repository Date:2018-09-25 09/18/2018 MCKAYLA SOLORZANO Primary MCKAYLA SOLORZANO [place] [id number] [place] Insurance:CARESOURCEP IIDOB: [facility] CenterPAWANanahi Number: [id number] Hospital [address]Tqa: [id number] Repository Date:2018-09-15P O (HP) [address]ATTN: [place] [address]YV: 09/18/2018 Secondary NOT GIVENUNK [place] Insurance:SELF PAY [facility] Number: Effective Repository Date:2018-09-18 09/13/2018 MCKAYLA SOLORZANO Primary MCKAYLA SOLORZANO [place] [id number] [place] Insurance:CARESOURCEP IIDOB: Community LNAPT CarlPAWANjuvegómez Number: [id number] Hospital [address]Hsy: [id number] Repository Date:2018-08-25P O (HP) [address]ATTN: [place] [address]DR: 09/13/2018 Secondary NOT GIVENUNK [place] Insurance:SELF PAY [facility] Number: Effective Repository Date:2018-09-13 09/13/2018 MCKAYLA SOLORZANO Primary MCKAYLA SOLORZANO [place] [id number] [place] Insurance:CARESOURCEP IIDOB: Community LNAPT Carljuve JONASicy Number: [id number] Hospital [address]Uua: [id number] Repository Date:2018-08-25P O (HP) [address]ATTN: [place] [address]EG: 09/13/2018 Secondary NOT GIVENUNK [place] Insurance:SELF PAY [facility] Number: Effective Repository Date:2018-08-25 08/22/2018 MCKAYLA SOLORZANO Primary MCKAYLA SOLORZANO [place] [id number] [place] Insurance:CARESOURCEP IIDOB: Community LNAPT [address] [place], [place] [address]juvegómez Number: [id number] Hospital [address]Htr: [id number] Repository Date:2018-08-01P O (HP) [address]ATTN: [place] [address]DV: 08/22/2018 Secondary NOT GIVENUNK [place] Insurance:SELF PAY [facility] Number: Effective Repository Date:2018-08-22 06/28/2018 MCKAYLA SOLORZANO Primary MCKAYLA SOLORZANO [place] [id number] [place] Insurance:CARESOURCEP IIDOB: Community LNAPT [address] [place], [place] [address]juveicy Number: [id number] Hospital [address]Nmi: [id number] Repository Date:2018-05-10P O (HP) [address]ATTN: [place] [address]AJ: 06/28/2018 Secondary NOT GIVENUNK [place] Insurance:SELF PAY [facility] Number: Effective Repository Date:2018-05-10 06/15/2018 MCKAYLA SOLORZANO Primary NOT GIVENUNK [place] [id number] [place] Insurance:SELF PAY [facility] LNAPT 12[facility] [address]Fqa: Number: Effective Repository Date:2018-05-10 (HP) 05/24/2018 MCKAYLA SOLORZANO Primary NOT GIVENUNK [place] [id number] [place] Insurance:SELF PAY [address] [address]Jky: Number: Effective Repository Date:2018-05-24 (HP) 05/09/2018 MCKAYLA SOLORZANO Primary MCKAYLA SOLORZANO [place] [id number] [place] Insurance:CARESOURCEP [facility]OB[facility] [address] [place] [address] doctors hospitalgómez Number: [id number] Hospital [address]Syb: [id number] Repository Date:2018-04-26P O () [address]ATTN: [place] [address]BG: 05/09/2018 Secondary NOT GIVENUNK [place] Insurance:SELF PAY [facility] Number: Effective Repository Date:2018-05-09 02/03/2018 MCKAYLA SOLORZANO Primary MCKAYLA SOLORZANO [place] [id number] [place] Insurance:CARESOURCEP IIDOB: Community [address]juve[address]mez Number: [id number] Hospital [address]Jbv: [id number] Repository Date:2014-06-17P O () [address]ATTN: [place] [address]EX: 02/03/2018 Secondary NOT GIVENUNK [place] Insurance:SELF PAY [facility] Number: Effective Repository Date:2017-08-25
== END 2018-09-29 21:16 | disposition home or self-care (01) ==
PROVIDERS: Emergency Provider Emergency Medicine; Family Provider Internal Medicine; PCP Internal Medicine
DX: G89.18 Other acute postprocedural pain (principal); E66.9 Obesity, unspecified; K21.9 Gastro-esophageal reflux disease without esophagitis
CPT/HCPCS: 93971; 99282

== ENCOUNTER → 2018-11-07 14:30 | Outpatient (CLI) | payer MEDICAID, SELFPAY ==
[2018-11-07 13:57] VITALS: BMI 51.7
--- NOTE | 2018-11-07 14:33 | RAD_ITS ---
STUDY: X-RAY - LEFT KNEE REASON FOR EXAM: Male, 38 years old. Follow-up postoperative TECHNIQUE: 4 view(s) of the knee. COMPARISON: None. FINDINGS: Screw fixation at the patellar tendon insertion. Blunting of the SPECT morphology of the tibial tubercle. There appears to mild thickening of the distal patellar tendon. Small suprapatellar knee joint effusion. Mild tricompartmental DJD, with osteophytic lipping about the margins of the medial and lateral compartment and patellofemoral compartment. Most prominent of the lateral compartment. RAD/Knee 4 or More Views IMPRESSION: Surgical construct as described. Small effusion. Tricompartmental DJD. Electronically Signed: Calvin Rush MD at 18:11 EST Tel , Service support ,
--- OUTSIDE RECORDS SUMMARY | 2019-01-09 20:03 | XMS RPT_ITS ---
:1980 Author Organization OHIP Support Name Relationship Address Phone RASHAD ABE Unavailable [address] + [address] [place] [address] SOLORZANOWILLIAM SALASTHIA Unavailable [address] [place] [address] UE Unavailable Unavailable Unavailable ABE SOLORZAON Unavailable [address] + [address] [place] [address] SLOAN SOLORZANOA Unavailable [address] + [address] [place] [address] UE Unavailable Unavailable Unavailable ABE SOLORZANO Unavailable [address] [place] [address] SOLORZANOSLOAN SALASA Unavailable [address] [place] [address] UE Unavailable Unavailable Unavailable ABE SOLORZANO Unavailable [address] [place] [address] WILLIAM SOLORZANOTHIA Unavailable [address] [place] [address] UE Unavailable Unavailable Unavailable WILLIAM SOLORZANOTHIA Unavailable [address] [place] [address] UE Unavailable Unavailable Unavailable SLOAN SOLORZANOA Unavailable [address] [place] [address] UE Unavailable Unavailable Unavailable SLOAN SOLORZANOA Unavailable [address] + [address] [place] [address] UE Unavailable Unavailable Unavailable ABE SOLORZANO Unavailable [address] [place] [address] SOLORZANO SEJAL Unavailable [address] [place] [address] UE Unavailable Unavailable Unavailable SOLORZANO, SEJAL Unavailable [address] [place] [address] UE Unavailable Unavailable Unavailable SOLORZANO, SEJAL Unavailable [address] [place] [address] UE Unavailable Unavailable Unavailable SOLORZANO, SEJAL Unavailable [address] [place] [address] UE Unavailable Unavailable Unavailable SOLORZANO, SEJAL Unavailable [address] [place] [address] UE Unavailable Unavailable Unavailable SOLORZANO, SEJAL Unavailable [address] [place] [address] UE Unavailable Unavailable Unavailable SOLORZANO SEJAL Unavailable [address] [place] [address] SOLORZANO, ABE Unavailable [address] + [address] [place] [address] UE Unavailable Unavailable Unavailable SOLORZANOWILLIAMSEJAL Unavailable [address] [place] [address] SOLORZANO, ABE Unavailable [address] [place] [address] UE Unavailable Unavailable Unavailable Care Team Providers Name Role Phone GANTARENEERA Attending Unavailable GANTA, LACY Referring Unavailable TONY PEDROZA (CASE FINISHING MACHINE ADJUSTER) Attending Unavailable GANTA, LACY Referring Unavailable MIKAYLA TOMAS (RD) Attending Unavailable TONY PEDROZA (CASE FINISHING MACHINE ADJUSTER) Attending Unavailable GANTA, LACY Attending Unavailable GANTA, LACY Referring Unavailable CHARY WELCH (CASE FINISHING MACHINE ADJUSTER) Attending Unavailable GANTA, LACY Attending Unavailable GANTA, LACY Referring Unavailable JAMA ANDERSON (PT) Attending Unavailable RAFFI IBARRA Referring Unavailable CHARY WELCH (CASE FINISHING MACHINE ADJUSTER) Referring Unavailable Leticia Richardson Attending Unavailable Gustavota, Lacy Referring Unavailable Leticia Richardson Attending Unavailable Chicorelli, Leticia Referring Unavailable Ganta, Lacy Primary Care Unavailable Ganta, Lacy Primary Care Unavailable Bobbi Martin Attending Unavailable Chicorelli, Leticia Attending Unavailable Chicorelli, Leticia Attending Unavailable Ganta, Lacy Primary Care Unavailable Wayt, Gerson Attending Unavailable Ganta, Lacy Referring Unavailable Wayt, Gerson Attending Unavailable Wayt, Gerson Referring Unavailable Ganta, Lacy Primary Care Unavailable IBARRA, RAFFI Attending Unavailable Ganta, Lacy [...] SOURCE 11/07/2018 Unknown M25.562 - Pain in Gerson Jimenez Active [place] left knee / Community M25.562(ICD-10) Hospital Repository 10/02/2018 Unknown 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, 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18 - Other acute Chicorelli, Active [place] postprocedural pain [facility] / G89.18(ICD-10) Hospital Repository 09/11/2018 Active Morbid (severe) [facility] obesity due to Clinic Main excess calories / [place] E66.01(ICD-10) Repository 09/11/2018 Active Vitamin D [facility] deficiency, [facility] Main unspecified / [place] E55.9(ICD-10) Repository 07/04/2018 Active Radiculopathy, [facility] lumbar region / Clinic Other M54.16(ICD-10) [place] Repository 06/28/2018 Unknown Z01.810 - Encounter Raffi Booth Active [place] for preprocedural [facility] examination / Repository Z01.810(ICD-10) 05/17/2018 Active Pain in left toe(s) NA Active [place] / M79.675(ICD-10) Clinic Main [place] Repository 02/16/2018 Active Other terminal gauger supervisor NA [facility]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 Clinic Main therapy / [place] Z79.899(ICD-10) Repository 02/09/2018 Unknown S16.1XXS - Strain of RAFFI IBARRA Active [place] muscle, fascia and Community tendon at neck Hospital level, sequela / Repository S16.1XXS(ICD-10) PROCEDURES PROCEDURES No Procedure Records FoundRESULTS RESULTS KNEE 4 OR MORE Observed: 11/07/2018 Status: F Source: [place] VIEWS 2:33 PM [facility] REPOSITORY [facility] Imaging Services [address] [place] [address] Knee 4 or More Views MR#: [id number] Acct: [id number] Name: MCKAYLA SOLORZANO II Rep #: [id number] : 1980 M 38 From: Calvin Rush MD PCP: Lacy Roberson MD Status: REG CLI Study: Knee 4 or More Views Date of Exam: 11/07/18 Exam# [id number] Ordering Dr: Gerson Jimenez STUDY: X-RAY - [...] , CC: MADELAINE Jimenez; Lacy Roberson MD Contact Lens Blocker And Cutter: Signed ORTHOPEDIC VISIT Observed: 10/05/2018 Status: F Source: [place] REPORT 8:12 PM [facility] REPOSITORY [facility] [address] [place] [address] OFFICE VISIT Date of Service: 09/28/18 MR#: [id number] Acct: [id number] Name: MCKAYLA SOLORZANO HERIBERTO Rep #: [id number] : 1980 Provider: Leticia Richardson DO Age/Sex: 38/M Location: [facility] Status: Signed Intake Vital Signs09/28/18 Body Mass [...] EMERGENCY DEPARTMENT Observed: 09/30/2018 Status: F Source: [place] SUMMARY 12:05 AM [facility] REPOSITORY [facility] Medical Records Department [address] [place] [address] Emergency Department Summary 09/29/18 2109 MR#: [id number] Acct: [id number] Name: MCKAYLA SOLORZANO II Rep #: [id number] : 1980 38 From: Bobbi Martin MD [...] medial portion of the calf and PA international operations manager asked the patient come in to rule [...] Postop pain This note was generated with Pairy dictation software. It may contain incorrect words, [...] your Primary Care Provider. Call [facility] ([phone]) or report to the closest Emergency Room. Call 911 if necessary. 09/30/18 0005 <Electronically signed by Bobbi Martin MD> Date Bobbi Martin MD Cosigner Signature (If Indicated): Date CC: Lacy Roberson MD DISCHARGE INSTRUCTION Observed: 09/29/2018 Status: F Source: [place] 9:11 PM [facility] REPOSITORY [facility] Medical Records Department [address] [place] [address] Discharge Instruction 09/29/182108 MR#: [id number] Acct: [id number] Name: MCKAYLA SOLORZANO II Rep #: [id number] : 1980 38 From: Bobbi Martin MD [...] problems, contact your Primary Care Provider. Call [facility] ([phone]) or report to the closest Emergency Room. Call 911 if necessary. 09/29/182110 <Electronically signed by Bobbi Martin MD> Date Bobbi Martin MD Cosigner Signature (If Indicated): Date CC: Lacy Roberson MD VENOUS DUPLEX Observed: 09/29/2018 Status: F Source: [place] IMAG/LIMITED/UNI 8:31 PM [facility] REPOSITORY [facility] Imaging Services [address] [place] [address] Venous Duplex Imag/Limited/Uni MR#: [id number] Acct: [id number] Name: MCKAYLA SOLORZANO II Rep #: [id number] : 1980 M 38 From: Luis Armando Mcintosh MD PCP: Lacy Roberson MD Status: [facility] ER Study: Venous Duplex Imag/Limited/Uni Date of Exam: 09/29/18 Exam# [id number] Ordering Dr: Bobbi Martin MD STUDY: VENOUS [...] CC: Lacy Roberson MD; Bobbi Martin MD Contact Lens Blocker And Cutter: Signed KNEE 1 OR 2 VIEWS Observed: 09/28/2018 Status: F Source: [place] 4:04 PM [facility] REPOSITORY [facility] Imaging Services [address] [place] [address] Knee 1 or 2 Views MR#: [id number] Acct: [id number] Name: MCKAYLA SOLORZANO II Rep #: [id number] : 1980 M 38 From: Donald Martinez MD PCP: Lacy Roberson MD Status: REG CLI Study: Knee 1 or 2 Views Date of Exam: 09/28/18 Exam# [id number] Ordering Dr: Leticia Richardson DO STUDY: X-RAY [...] CC: Leticia Richardson DO; Lacy Roberson MD Contact Lens Blocker And Cutter: Signed OPERATIVE REPORT Observed: 09/20/2018 Status: F Source: [place] 2:35 PM [facility] REPOSITORY [facility] Medical Records Department [address] [place] [address] Operative Report 09/13/18 1118 MR#: [id number] Acct: [id number] Name: MCKAYLA SOLORZANO HERIBERTO Rep #: [id number] : 1980 38 From: Leticia Richardson DO PCP: Lacy Roberson MD Status: DIS IN Y Location: [place] [address]-1 Report of Operation Date of Procedure: 09/13/18 Pre-Operative Diagnosis: left knee patellofemoral chondromalacia/arthritis, lateral meniscus tear, synovitis Post-Operative Diagnosis: same Surgery/Procedure Performed:: salk, partial lat meniscectomy, synovectomy, lateral release, open tibial tubercle osteotomy corn breeder: Gerson Jimenez Type of Anesthesia:: General Anesthesiologist: [...] or concerns This note was generated with Open Mileation software. It may contain incorrect words, spelling, and punctuation that were not noted in checking the note before signing. - Admit VTE Documentation VTE Present on Admission: Yes VTE Mechan Device Prophylaxis: SCD's VTE Pharm Prophylaxis ordered?: Yes 09/20/18 1435 <Electronically signed by Lteicia Richardson DO> Date Leticia Richardson DO CC: Leticia Richardson DO; Lacy Roberson MD Signed ORTHOPEDIC VISIT Observed: 09/19/2018 Status: F Source: [place] REPORT 4:06 PM [facility] REPOSITORY [facility] [address] [place] [address] OFFICE VISIT Date of Service: 09/18/18 MR#: [id number] Acct: [id number] Name: MCKAYLA SOLORZANO HERIBERTO Rep #: [id number] : 1980 Provider: MADELAINE Jimenez Age/Sex: 38/M Location: [facility] Status: Signed Intake Intake Visit Reasons: knee [...] knee that is not currently controlled with [place]. He does have it propped up at [...] Percocet. He is to stop taking the [place] altogether. He is to continue to not [...] 09/15/2018 Status: F Source: [place] 3:27 PM [facility] REPOSITORY [facility] Medical Records Department [address] [place] [address] Instructions for Home/Discharge Instructions 09/15/18 1507 MR#: [id number] Acct: [id number] Name: MCKAYLA SOLORZANO II Rep #: [id number] : 1980 38 From: Gerson BURKETT PCP: [...] mg PO QHS 05/24/18 Hydrocodone Bitart/Apap 5-325 [[place] 5MG-325MG] 1 - 2 tablet PO Q6H PRN PRN 5 Days #40 tablet 11/28/18 The following prescriptions were given: Hydrocodone Bitart/Apap 5-325 [[place] 5MG-325MG] 1 - 2 tablet PO Q6H PRN PRN 5 Days #40 tablet PRN Reason: Pain Primary Care Physician: Lacy Roberson MD [Primary Care Provider] - Test Results: Test results from this visit will be discussed in further detail at your follow-up appointment, if applicable. Please Follow Up With: Leticia Richardson DO - [phone] When: 3-4 days (Tuesday or Tuesday) Physician [...] 2 VIEWS Observed: 09/13/2018 Status: F Source: [place] 2:24 PM [facility] REPOSITORY [facility] Imaging Services [address] [place] [address] Knee 1 or 2 Views MR#: [id number] Acct: [id number] Name: MCKAYLA SOLORZANO II Rep #: [id number] : 1980 M 38 From: Donald Martinez MD PCP: Lacy Roberson MD Status: ADM IN Study: Knee 1 or 2 Views Date of Exam: 09/13/18 Exam# [id number] Ordering Dr: Leticia Richardson DO STUDY: X-RAY - LEFT KNEE REASON FOR EXAM: Surgery. TECHNIQUE: 3 fluoroscopic view(s) of the knee. COMPARISON: Radiographs 03/28/2017. FINDINGS: Status post patellar realignment with 2 orthopedic screws without demonstrated complication. Electronically Signed: Donald Martinez MD at 15:39 EST Tel , Service support , RAD/Knee 1 or 2 Views CC: Leticia Richardson DO; Lacy Roberson MD Contact Lens Blocker And Cutter: Signed DISCHARGE INSTRUCTION Observed: 09/13/2018 Status: F Source: [place] 1:28 PM [facility] REPOSITORY [facility] Medical Records Department [address] [place] [address] Instructions for Home/Discharge Instructions 09/13/18 1116 MR#: [id number] Acct: [id number] Name: MCKAYLA SOLORZANO HERIBERTO Rep #: [id number] : 1980 38 From: Leticia Richardson DO [...] mg PO QHS 05/24/18 Hydrocodone Bitart/Apap 5-325 [[place] 5MG-325MG] 1 - 2 tablet PO Q6H PRN PRN 5 Days #40 tablet 09/13/18 The following prescriptions were given: Hydrocodone Bitart/Apap 5-325 [[place] 5MG-325MG] 1 - 2 tablet PO Q6H PRN PRN 5 Days #40 tablet PRN Reason: Pain Primary Care Physician: Lacy Roberson MD [Primary Care Provider] - Test Results: Test results from this visit will be discussed in further detail at your follow-up appointment, if applicable. Please Follow Up With: Leticia Richardson, - [phone] 09/13/18 9542 <Electronically signed by Leticia Richardson DO> Date [...] VITD, TSH #### [facility] [address] [place], [place] [address] TSH Collected: 09/11/2018 Status: F Source: [place] 9:25 AM [facility] REPOSITORY TYPE CODE TESTS RESULT OUT OF RANGE REFERENCE UNITS LAB TSH 0.400-5.500 uU/mL TSH 2.590 Performed By: #### VITD, TSH #### [facility] [address] [place] [address] VALPROIC ACID Collected: 09/11/2018 Status: F Source: [place] 9:25 AM [facility] REPOSITORY TYPE CODE TESTS RESULT OUT OF REFERENCE UNITS RANGE LAB VPA(LOINC) 50-100 ug/mL Low Valproic Acid 34.3 Performed By: #### VPA, CBCDIF, CMP, PROL #### [facility] Routine Lab [address] [place] [address] CBC AND DIFFERENTIAL Collected: 09/11/2018 Status: F Source: [place] 9:25 AM [facility] REPOSITORY TYPE CODE TESTS RESULT OUT [...] Abs Lymph 3.24 LAB AMONO(LOIN % C) Todd% 9.4 LAB AAMONO(JENNIFER <0.87 k/uL NC) Abs Todd 0.76 LAB AEOS(LOINC % ) Eosin% 2.3 LAB AAEOS(LOIN <0.46 k/uL C) Abs Eosin 0.19 LAB ABASO(LOIN % C) Baso% 0.6 LAB AABASO(JENNIFER <0.11 k/uL NC) Abs Baso 0.05 LAB AUNRBC(JENNIFER 0 /100 WBC NC) NRBCs 0.0 LAB ABNRBC(JENNIFER <0.01 k/uL NC) Absolute nRBC <0.01 LAB DTYP(LOINC ) DTYPE ADIFF Performed By: #### VPA, CBCDIF, CMP, PROL #### [facility] Routine Lab [address] [place] [id number] COMP METABOLIC PANEL Collected: 09/11/2018 Status: F Source: [place] 9:25 AM CLINIC REFERENCE REPOSITORY TYPE CODE [...] By: #### VPA, CBCDIF, CMP, PROL #### [facility] Routine Lab [address] [place], [place] [address] PROLACTIN Collected: 09/11/2018 Status: F Source: [place] 9:25 AM CLINIC REFERENCE REPOSITORY TYPE CODE TESTS RESULT OUT OF REFERENCE UNITS RANGE LAB PROL(LOINC 4.0-15.2 ng/mL ) High Prolactin 25.5 Performed By: #### VPA, CBCDIF, CMP, PROL #### [facility] Routine Lab [address] [place], [place] [address] PROGRESS Observed: 09/11/2018 Status: COMPLETED Source: [place] 8:15 AM [facility] REPOSITORY HNO ID: [id number] Author: Lacy Roberson Service: (none) Author Type: [...] of life. - [facility] Printed out info on basic of baritric surgery, the need for it and other related information 2. Vitamin D deficiency - ICD9: 268.9, ICD10: E55.9 - VITAMIN D 25 HYDROXY 3. Bipolar 1 disorder (HCC) - ICD9: 296.7, ICD10: F31.9 On divalporex, risperidol blood levels are being done to get it checked. LACY ROBERSON MD CNOV Observed: 09/11/2018 Status: COMPLETED Source: [place] 8:00 AM [facility] REPOSITORY Office Visit (INTMWS) MCKAYLA SOLORZANO II ([id number]) 1980 M Date Time Provider Department 09/11/18 [...] of life. - [facility] Printed out info on basic of baritric [...] 1 disorder (HCC) [F31.9] Order(s):[facility] [1040745] Order #: [id number]: 1 TSH BLD [SQTSH] Order #: [id number] FUTURE VITAMIN D 25 HYDROXY [SQVITD] Order #: [id number] FUTURE Prescriptions as of 09/11/2018 Sig: FLUTICASONE [...] b* COMPOUNDED PRESCRIPTION Why weight program at [facility] TRIAMCINOLONE ACETONIDE 10 MG* Intralesional kenalog 10 [...] ORTHOPEDIC VISIT Observed: 08/22/2018 Status: F Source: [place] REPORT 1:58 PM [facility] REPOSITORY [facility] [address] [facility] [address] [place] [address] OFFICE VISIT Date of Service: 08/22/18 MR#: [id number] Acct: [id number] Name: MCKAYLA SOLORZANO II Rep #: [id number] : 1980 Provider: Leticia Richardson DO Age/Sex: 37/M Location: [facility] Status: Signed Intake Intake Visit Reasons: LEFT [...] CC: PROGRESS Observed: 08/14/2018 Status: COMPLETED Source: [place] 5:16 PM [facility] REPOSITORY HNO ID: [id number] Author: Winifred Wen Service: (none) Author Type: [...] bedtime COMPOUNDED PRESCRIPTION Why weight program at [facility] triamcinolone acetonide (KENALOG) 10 mg/mL injection Intralesional [...] CNP CNOV Observed: 08/14/2018 Status: COMPLETED Source: [place] 4:45 PM [facility] REPOSITORY Office Visit (WSTR) MCKAYLA SOLORZANO II ([id number]) 1980 M Date Time Provider Department 08/14/18 4:45 PM WINIFRED WEN During your visit today, we recorded the following information about you: Temperature Pulse Respiration Blood pressure 98.5 degrees 106/minute 20/minute 126/74 Weight 153.8 kg Winifred FREDERIC Wen.CASE FINISHING MACHINE ADJUSTER 08/14/2018 5:20 PM Signed Subjective HPI Pt [...] bedtime COMPOUNDED PRESCRIPTION Why weight program at [facility] triamcinolone acetonide (KENALOG) 10 mg/mL injection Intralesional [...] b* COMPOUNDED PRESCRIPTION Why weight program at [facility] TRIAMCINOLONE ACETONIDE 10 MG* Intralesional kenalog 10 [...] 08/14/18 PROGRESS Observed: 07/04/2018 Status: COMPLETED Source: [place] 11:43 AM [facility] REPOSITORY HNO ID: [id number] Author: Sendy Garcia) REMBERTO Jackson Service: (none) Author Type: Clinical Stoker Mechanic Type: Progress Notes Filed: 07/04/2018 11:44 AM Note Text: NAME:Mckayla Solorzano HERIBERTO DATE: July 04, 2018 CCF#: [id number] Spine X-Ray(s): Lumbar AP / LAT / / OBL COMPLETED TECH ID SIGN: SHIRLEY WELCHRAHDA XR LUMBAR PARS 4V Observed: 07/04/2018 Status: F Source: [place] AP/LAT/OBL X2 10:09 AM CLINIC OTHER CAMPUS [...] IMPRESSION: Mild anterolisthesis at the lumbosacral junction Contact Lens Blocker And Cutter: PSCB Transcribe Date/Time: Jul 04 2018 1:06P Dictated by : JABARI SAMUEL MD This examination was interpreted and the report reviewed and electronically signed by: JABARI SAMUEL MD on Jul 04 2018 1:07PM EST [id number] CNOV Observed: 07/04/2018 Status: COMPLETED Source: [place] 9:30 AM [facility] REPOSITORY Office Visit (PNMDNA) MCKAYLA SOLORZANO II ([id number]) 1980 M Date Time Provider Department 07/04/18 9:30 AM CHARY WELCH ([facility]) PNTNNA During your visit today, we recorded the following information about you: Pulse Weight 104/minute 151.5 kg Chary Welch APRN.CNP 07/04/2018 9:55 AM Signed SUBJECTIVE: Mckayla Solorzano II presents to [facility] Pain Management Department for a followup appointment [...] pain He reports she saw orthopedics in [place] and he will be having surgery on [...] on his left knee by orthopedics in [place] 3) encouraged daily walking, exercising and stretching 4) ordered lumbar x-ray. Will have Dr. Ibarra review for further recommendations. Patient is interested in injection 5) continue tramadol when necessary, gabapentin 600 mg daily and Robaxin 500 mg 3 times a day that are prescribed by outside providers 6) RTC x6 months This note was partially generated using Pairy voice recognition system. The above plan and management options were discussed at length with patient. Patient is in agreement with the above and verbalized understanding. Chary Welch APRN, CASE FINISHING MACHINE ADJUSTER July 04, 2018 Referring Provider: SELF [[id number]] [...] Order(s):XR LUMBAR PARS DEFECT 4V AP/LAT/BOTH OBL [[id number]] Order #: [id number] FUTURE Prescriptions as of 07/04/2018 Sig: MELOXICAM [...] RUI* COMPOUNDED PRESCRIPTION Why weight program at [facility] TRIAMCINOLONE ACETONIDE 10 MG* Intralesional kenalog 10 [...] 9/18/18 PROGRESS Observed: 07/04/2018 Status: COMPLETED Source: [place] 9:25 AM [facility] REPOSITORY HNO ID: [id number] Author: Chary Dos Santos (Liz Welch Service: (none) Author Type: Nurse Practitioner Type: Progress Notes Filed: 07/04/2018 9:55 AM Note Text: SUBJECTIVE: Mckayla Solorzano II presents to [facility] Pain Management Department for a followup appointment [...] pain He reports she saw orthopedics in [place] and he will be having surgery on [...] on his left knee by orthopedics in [place] 3) encouraged daily walking, exercising and stretching 4) ordered lumbar x-ray. Will have Dr. Ibarra review for further recommendations. Patient is interested in injection 5) continue tramadol when necessary, gabapentin 600 mg daily and Robaxin 500 mg 3 times a day that are prescribed by outside providers 6) RTC x6 months This note was partially generated using Pairy voice recognition system. The above plan and management options were discussed at length with patient. Patient is in agreement with the above and verbalized understanding. Chary Welch APRN, CASE FINISHING MACHINE ADJUSTER July 04, 2018 12 LEAD ELECTROCARDIOGRAM Observed: 05/26/2018 Status: F Source: [place] 2:03 PM [facility] REPOSITORY [facility] Cardiovascular Services [address] [place] [address] EKG - SDC 05/24/18 1322 MR#: [id number] Acct: [id number] Name: MCKAYLA SOLORZANO II Rep #: [id number] : 1980 37 From: Raffi Booth MD Attending Dr: Leticia Richardson DO Status: PRE SDC Ordering Dr: Jomar Britt MD Date: 05/24/18 Location: [facility] Sex: M C Admitted: Test Reason : Blood Pressure : / mmHG Vent. Rate : 093 BPM Atrial Rate : 093 BPM P-R Int : 152 ms QRS Dur : 096 ms QT Int : 364 ms P-R-T Axes : 032 020 037 degrees QTc Int : 452 ms Normal sinus rhythm Normal ECG Confirmed by LEOBARDO HUYNH, RAFFI ([id number]), scientific editor UMM MARTIN ([id number]) on 05/26/2018 2:02:56 PM Referred By: Leticia Richardson Confirmed By:RAFFI BOOTH MD 05/26/18 1403 Date Raffi Booth MD CC: Leticia Richardson DO; Lacy Roberson MD; Jomar Britt MD Date Dictated: 05/24/181321 Date Transcribed: 05/24/181321 Contact Lens Blocker And Cutter: Signed BASIC METABOLIC Collected: 05/24/2018 Status: F Source: ANTWON PROFILE (BMP) 2:51 PM [facility] REPOSITORY Order Comment: Comments: [id number] DRUG PANEL SERUM RTEMP TYPE CODE TESTS [...] Normal 10 Performed By: #### L500.2500 #### [facility] [address] [facility] 383471 HIV - [facility] Collected: 05/24/2018 Status: F Source: CRAIG 2:51 PM [facility] REPOSITORY TYPE CODE TESTS RESULT OUT OF RANGE REFERENCE UNITS LAB L3890.6005 Nonreactive Normal HIV - H Non-Reactive Performed By: #### L3890.6005 #### [facility] [address] [place], [place], [address] HEPATITIS ABC PROFILE Collected: 05/24/2018 Status: F Source: CRAIG 2:51 PM [facility] REPOSITORY TYPE CODE TESTS RESULT OUT OF RANGE REFERENCE UNITS LAB L3100.0200 Negative Normal HEP A Negative IgM 6734 LAB L3100.0300 Negative Normal HEP A Negative AB,T.6726 LAB L3100.0400 Negative Normal HB Negative SURF AG LAB L3100.0440 Negative Normal HB Negative CORE [id number] LAB L3100.0460 Negative Normal HEP B Negative [...] exists to indicate HCV infection. Performed at: [facility] [employer] [id number] Contract Consultant: Delmer Martell PhD, Phone: [phone] Performed By: #### L3000.0700 #### [facility] (refer to report for specific site) refer to report for address and phone number MISCELLANEOUS LAB Collected: 05/24/2018 Status: F Source: ANTWON PROCEDURE 2:51 PM [facility] REPOSITORY Order Comment: Comments: [id number] DRUG PANEL SERUM RTEMP Test(s) Ordered: [id number] DRUG PANEL SERUM RTEMP TYPE CODE TESTS RESULT OUT OF RANGE REFERENCE UNITS LAB L801.1541 Normal [facility] LAB TEST Result [...] developed and its performance characteristics determined by [facility]. It has not been cleared or approved by the Food and Drug Administration. THC,MS,WB/SP RFX Cannabinoid Confirmation Positive Tetrahydrocannabinol(THC) 1.2 ng/mL Carboxy-THC 53.0 ng/mL Hydroxy-THC 1.2 ng/mL Cannabinol Negative ng/mL Cannabidiol Negative ng/mL Confirmation threshold: 1.0 ng/mL TESTING PERFORMED AT [facility]. ORIGINAL REPORT ON FILE IN LAB CONTAINS ADDITIONAL TEST SITE INFORMATION. Performed By: #### L801.1541 #### [facility] [address] [place], [address] URIC ACID Collected: 05/17/2018 Status: F Source: MARATHON 10:37 AM [facility] REPOSITORY TYPE CODE TESTS RESULT OUT OF RANGE REFERENCE UNITS LAB URIC 4.0-8.1 mg/dL Uric Acid 7.3 Performed By: #### URIC #### [facility] [address] [place], [place] [address] PROGRESS Observed: 05/17/2018 Status: COMPLETED Source: MARATHON 9:55 AM [facility] REPOSITORY HNO ID: [id number] Author: Lacy Roberson Service: (none) Author Type: [...] since today morning. Last night he had ClipClock 3 medium pieces. He does not drink [...] DWAINE HERRERAOV Observed: 05/17/2018 Status: COMPLETED Source: MARATHON 9:20 AM [facility] REPOSITORY Office Visit (INTMWS) MCKAYLA SOLORZANO II ([id number]) 1980 M Date Time Provider Department 05/17/18 [...] since today morning. Last night he had Pixstas 3 medium pieces. He does not drink [...] Morbid obesity with BMI of 45.0-49.9, adult ([facility]) [E66.01, Z68.42] Order(s):URIC ACID BLOOD [SQURIC] Order #: [id number] FUTURE POLYSOMNOGRAM (PSG)/HOME SLEEP APNEA TESTING (HSAT) [0920025] Order #: [id number] FUTURE Prescriptions as of 05/17/2018 Sig: MELOXICAM [...] RUI* COMPOUNDED PRESCRIPTION Why weight program at [facility] TRIAMCINOLONE ACETONIDE 10 MG* Intralesional kenalog 10 [...] Status: F Source: ANTWON REPORT 10:47 AM [facility] REPOSITORY [facility] [address] [place] [address] OFFICE VISIT Date of Service: 05/09/18 MR#: [id number] Acct: [id number] Name: MCKAYLA SOLORZANO II Rep #: [id number] : 1980 Provider: Leticia Richardson DO Age/Sex: 37/M Location: [facility] Status: Signed Intake Intake Visit Reasons: CK [...] CC: PROGRESS Observed: 05/10/2018 Status: COMPLETED Source: MARATHON 4:45 PM [facility] REPOSITORY O ID: [id number] Author: Jama (Pt) Elvie Service: (none) Author Type: Physical Therapist Type: Progress Notes Filed: 05/10/2018 4:49 PM Note Text: Episode Visit Count: 1 Therapist That Will Oversee The Plan Of Care: Jama Anderson Start of Care Date: 05/10/18 Patient Identified by Name and Date of : Yes [facility] REHABILITATION AND SPORTS THERAPY PHYSICAL CAPACITY EVALUATION Mckayla Solorzano HERIBERTO [id number] 05/10/2018 Social Director: Jama Anderson, PT Referring Physician: Raffi Ibarra [...] Billing: Diana: Physical Performance Test (and doc) (98143): 1:1 time: 160 minutes (11 units) Total time: 160 minutes Jama Anderson PT CNTHERAPY Observed: 05/10/2018 Status: COMPLETED Source: MARATHON 1:30 PM [facility] OTHER [facility] REPOSITORY OT/PT/Speech Visit (PTMCRM) MCKYALA SOLORZANO II ([id number]) 1980 M Date Time Provider Department 05/10/18 1:30 PM JAMA ANDERSON (PT) [facility] Date Time Provider Department Center 05/10/2018 1:30 PM [id number], REBECCA *[facility] Reason for Visit: Functional Capacity Eval [7699] Patient Education [91] PT Discharge [752] Primary [...] RUI* COMPOUNDED PRESCRIPTION Why weight program at [facility] TRIAMCINOLONE ACETONIDE 10 MG* Intralesional kenalog 10 [...] by Name and Date of : Yes [facility] REHABILITATION AND SPORTS THERAPY PHYSICAL CAPACITY EVALUATION Mckayla Solorzano II [id number] 05/10/2018 Social Director: Jama Anderson PT Referring Physician: Raffi Ibarra [...] Billing: Diana: Physical Performance Test (and doc) (43943): 1:1 time: 160 minutes (11 units) Total time: 160 minutes Jama Anderson, ANA LUIS Observed: 03/22/2018 Status: COMPLETED Source: MARATHON 2:00 PM [facility] [place] REPOSITORY Office Visit (INTMWS) MCKAYLA SOLORZANO II ([id number]) 1980 M Date Time Provider Department 03/22/18 2:00 PM TONY PEDROZA ([facility]) INTMWS During your visit today, we [...] minutes at lest 3 times a day [employer] website checked and validated. All prescriptions have been APPROPRIATELY filled. No suspicious activity was identified.- 03/22/2018 by Tony Pedroza APRN.CASE FINISHING MACHINE ADJUSTER - reviewed SE, medication expectations, required weight loss of 5%, monthly monitoring and medication duration of use (3 months on 6 months off) Prescription instructions reviewed with patient as applicable. Potential red flag symptoms discussed with the patient. Reviewed appropriate action plan to take if red flag symptoms occur. Patient agreeable to treatment plan. Tony Pedroza APRN.CASE FINISHING MACHINE ADJUSTER Referring Provider: SELF [200] Allergies As of [...] RUI* COMPOUNDED PRESCRIPTION Why weight program at [facility] TRIAMCINOLONE ACETONIDE 10 MG* Intralesional kenalog 10 [...] 03/22/18 PROGRESS Observed: 03/22/2018 Status: COMPLETED Source: MARATHON 1:53 PM [facility] REPOSITORY HNO ID: [id number] Author: Tony (Magui) Arvind Service: (none) Author [...] minutes at lest 3 times a day [employer] website checked and validated. All prescriptions have [...] APRN.MAGUI CNTHERAPY Observed: 03/08/2018 Status: COMPLETED Source: MARATHON 2:15 PM [facility] OTHER [facility] REPOSITORY OT/PT/Speech Visit (PTMCRM) MCKAYLA SOLORZANO II ([id number]) 1980 M Date Time Provider Department 03/08/18 2:15 PM [facility] Date Time Provider Department Center 03/08/2018 2:15 PM [id number], REBECCA *PTMCRM [facility] Reason for Visit: Appointment Cancelled [1023] Reason [...] RUI* COMPOUNDED PRESCRIPTION Why weight program at [facility] OMEPRAZOLE 20 MG CAPSULE,GISSELLE* Take 1 capsule [...] PT PROGRESS Observed: 03/08/2018 Status: COMPLETED Source: MARATHON 7:57 AM [facility] REPOSITORY HNO ID: [id number] Author: Jama LinoPt) Elvie Service: (none) Author Type: Physical Therapist Type: Progress Notes Filed: 03/08/2018 11:10 AM Note Text: The appointment was cancelled for this patient. Patient called to cancel appointment for today. Patient reports that his ride canceled on him. No transportation for FCE. Jama Anderson, PT PROGRESS Observed: 03/06/2018 Status: COMPLETED Source: MARATHON 1:15 PM [facility] REPOSITORY HNO ID: [id number] Author: Mikayla Tomas Service: (none) Author Type: Registered Dietitian Type: Progress Notes Filed: 03/06/2018 1:43 PM Note Text: [facility] Nutrition Therapy: Initial Assessment Patient states [...] 11 COMPOUNDED PRESCRIPTION Why weight program at [facility] Disp: 1 Each Rfl: 0 omeprazole (PRILOSEC) [...] PM CNCNPATED Observed: 03/06/2018 Status: COMPLETED Source: MARATHON 1:15 PM [facility] REPOSITORY Education (NUTRWS) RASHADMCKAYLA Stewart II ([id number]) 1980 M Date Time Provider Department 03/06/18 1:15 PM MIKAYLA TOMAS) LISA Reason for Visit: Patient Education [91] Assessment [673] Progress Notes: Mikayla Tomas MS RD LD 03/06/2018 1:43 PM Signed [facility] Nutrition Therapy: Initial Assessment Patient states [...] 11 COMPOUNDED PRESCRIPTION Why weight program at [facility] Disp: 1 Each Rfl: 0 omeprazole (PRILOSEC) [...] sugar free (drink water and crystal light/sparkling armetna 3. Have a whole grain/high fiber cereal/low [...] week. Document on: 03/06/2018 by: Mikayla Tomas [[id number]] of: Specialist [employer] Worksheet Document on: 03/06/2018 by: Mikayla Tomas [[id number]] of: After Visit Summary Other instructions from [...] RUI* COMPOUNDED PRESCRIPTION Why weight program at [facility] OMEPRAZOLE 20 MG CAPSULE,GISSELLE* Take 1 capsule by mouth daily* TRIAMCINOLONE ACETONIDE 10 MG* Intralesional kenalog 10 mg/m* FLUTICASONE 50 MCG/ACTUATION * Use 2 Sprays in each nostril * ALBUTEROL SULFATE HFA 90 MCG/* Inhale 2 Puffs as instructed * VOLTAREN 1 % TOPICAL GEL Encounter Status:Closed by THOM CANADA, MIKAYLA on 03/06/18 LUIS Observed: 02/17/2018 Status: COMPLETED Source: MARATHON 3:00 PM [facility] REPOSITORY Office Visit (INTMWS) MCKAYLA SOLORZANO II ([id number]) 1980 M Date Time Provider Department 02/17/18 3:00 PM TONY PEDROZA ([facility]) INTMWS During your visit today, we recorded the following information about you: Temperature Pulse Respiration Blood pressure 98.5 degrees 96/minute 16/minute 128/84 Weight 146.5 kg Tony Pedroza ([facility]) 02/17/2018 3:08 PM Signed CC: Mckayla Stewart [...] activity was identified.- 02/17/2018 by Tony Pedroza APRN.CASE FINISHING MACHINE ADJUSTER - reviewed SE, medication expectations, required weight loss of 5%, monthly monitoring and medication duration of use (3 months on 6 months off) Prescription instructions reviewed with patient as applicable. Potential red flag symptoms discussed with the patient. Reviewed appropriate action plan to take if red flag symptoms occur. Patient agreeable to treatment plan. Tony Pedroza APRN.MAGUI Referring Provider: LACY ROBERSON [[id number]] Allergies As of Date: 02/17/2018 Noted Allergy [...] 30 tabletRfl: 0 CONSULT TO NUTRITION THERAPY [9086] Order #: [id number]: 1 Prescriptions as of 02/17/2018 Sig: PHENTERMINE [...] RUI* COMPOUNDED PRESCRIPTION Why weight program at [facility] OMEPRAZOLE 20 MG CAPSULE,GISSELLE* Take 1 capsule [...] 02/17/18 PROGRESS Observed: 02/17/2018 Status: COMPLETED Source: MARATHON 2:49 PM [facility] REPOSITORY O ID: [id number] Author: Tony Pedroza (Magui) Service: (none) Author [...] activity was identified.- 02/17/2018 by Tony Pedroza APRN.CASE FINISHING MACHINE ADJUSTER - reviewed SE, medication expectations, required weight [...] METABOLIC PANL Collected: 02/16/2018 Status: F Source: MARATHON 12:24 PM [facility] REPOSITORY TYPE CODE TESTS RESULT OUT OF REFERENCE UNITS RANGE LAB GLU 74-99 mg/dL Glucose 90 Result Comment: The [place] Diabetes Association (ADA) provides guidance for cutoff [...] Standards of Medical Care in Diabetes 2016, [place] Diabetes Association. Diabetes Care. 2016.39(Suppl 1). LAB [...] Performed By: #### BMP, LIPB, HBA1C #### [facility] [address] [place], [place] [address] LIPID PANEL, BASIC Collected: 02/16/2018 Status: F Source: MARATHON 12:24 PM [facility] REPOSITORY TYPE CODE TESTS RESULT [...] Desk Reference: National Heart, Lung, and Blood [place]. National Institutes of Health. 2001: NIH Publication No. 01-3305. 2. An International Atherosclerosis Society position paper: global recommendations for the management of dyslipidemia: executive summary, Atherosclerosis. 2014: 232(2):410-413. Performed By: #### BMP, LIPB, HBA1C #### [facility] [employer] [address] [place], [place] [address] HEMOGLOBIN A1C Collected: 02/16/2018 Status: F Source: MARATHON 12:24 PM [facility] REPOSITORY TYPE CODE TESTS RESULT OUT OF REFERENCE UNITS RANGE LAB HGBA1C 4.3-5.6 % Hemoglobin A1c 5.0 LAB HBA0 mg/dL Est. Average Glucose 97 Result Comment: eAG: (Estimated average glucose) is a calculated value from HgbA1c and is inbound customer service representative of the average blood glucose level in the last 2-3 month period. Performed By: #### BMP, LIPB, HBA1C #### [facility] [employer] [address] [place], [place] [address] PT D/C SUMMARY (1) Observed: 02/07/2018 Status: F Source: CRAIG 3:02 PM [facility] REPOSITORY [facility] [address] [place] [address]. [address] [place], [place] [address] Fax REHABILITATION SERVICES DISCHARGE SUMMARY MR#: [id number] Acct: [id number] Name: MCKAYLA SOLORZANO II Rep #: [id number] : 1980 37 From: Jabari Nicole PT, Cert. MDT, OCS Referring DrAvel: RAFFI IBARRA Status: REG R Insurance: [facility] - PT D/C Summary It has been [...] please feel free to call me at [phone]. Thank you for the referral of this patient. Sincerely, Jabari Nicole PT, <Electronically signed by Jabari Nicole PT, Cert. MDT, OCS> 02/07/18 1502 CC: Lacy Roberson MD; RAFFI IBARRA TIM Signed CNPTOUTREACH Observed: 01/31/2018 Status: COMPLETED Source: MARATHON 12:00 AM [facility] REPOSITORY Patient Outreach (FAMPST) MCKAYLA SOLORZANO II ([id number]) 1980 M Date Time Provider Department 01/31/18 [...] [Z79.899] Order(s):BASIC METABOLIC PNL [SQBMP] Order #: [id number] FUTURE Prescriptions as of 01/31/2018 Sig: X [...] RUI* COMPOUNDED PRESCRIPTION Why weight program at [facility] X OMEPRAZOLE 20 MG CAPSULE,GISSELLE* Take 1 [...] 01/18/2018 Status: COMPLETED Source: KRAUS 6:19 PM [facility] REPOSITORY HNO ID: [id number] Author: Lacy Roberson Service: (none) Author Type: [...] Selma HERRERAOV Observed: 01/18/2018 Status: COMPLETED Source: MARATHON 6:00 PM [facility] REPOSITORY Office Visit (INTMWS) MCKAYLA SOLORZANO II ([id number]) 1980 M Date Time Provider Department 01/18/18 [...] 0 POLYSOMNOGRAM (PSG)/HOME SLEEP APNEA TESTING (HSAT) [8483398] Order #: [id number] FUTURE Prescriptions as of 01/18/2018 Sig: PHENTERMINE [...] RUI* COMPOUNDED PRESCRIPTION Why weight program at [facility] OMEPRAZOLE 20 MG CAPSULE,GISSELLE* Take 1 capsule [...] 01/18/18 CNCO Observed: 01/18/2018 Status: COMPLETED Source: MARATHON 12:00 AM [facility] REPOSITORY Letter Text Mckayla Solorzano II Department of Pain Management Raffi Ibarra MD [place] [address] January 18, 2018 RE: Mckayla Solorzano II [address] [facility] [address] :1980 To Whom it May Concern: This is to confirm that Mckayla Solorzano II had an appointment and was seen at the [facility] in the Department of Pain Management [...] VALPROIC ACID Collected: 01/03/2018 Status: F Source: MARATHON 1:10 PM CLINIC REFERENCE REPOSITORY TYPE CODE TESTS RESULT OUT OF REFERENCE UNITS RANGE LAB VPA(LOINC) 50-100 ug/mL Valproic Acid 53.0 Performed By: #### VPA, PLTCT, CMP #### [facility] Routine Lab [address] [place], [place] [address] PLATELET COUNT Collected: 01/03/2018 Status: F Source: MARATHON 1:10 PM CLINIC REFERENCE REPOSITORY TYPE CODE TESTS RESULT OUT OF REFERENCE UNITS RANGE LAB PLTCT(LOINC 150-400 k/uL ) Low Platelet Count 142 Performed By: #### VPA, PLTCT, CMP #### [facility] Routine Lab [address] [place], [place] [address] COMP METABOLIC PANEL Collected: 01/03/2018 Status: F Source: MARATHON 1:10 PM CLINIC REFERENCE REPOSITORY TYPE CODE [...] Performed By: #### VPA, PLTCT, CMP #### [facility] Routine Lab [address] [place] [address] ALLERGIES ALLERGIES DATE TYPE / NAME / CODE REACTION SEVERITY SOURCE CODE 09/29/2018 Drug methylphenidate Hives Unknown [place] Allergy/41 HCl/[id number](RXNORM Community 2499178( ) Hospital OMED CT) Repository 09/29/2018 Drug Penicillins/P84778909 Hives Unknown [place] Allergy/41 6(RXNORM) Community 9367386( Hospital OMED CT) Repository 09/29/2018 Drug buprenorphine/P422591 Rash Unknown [place] Allergy/41 632(RXNORM) Community 3194554([facility]) Repository 02/03/2016 DRUG BUPRENORPHINE OTHER: SEE C [facility] INGREDI/41 [address] [place] 8259550(SN Repository OMED CT) 07/22/2014 Drug PENICILLINS HIVES [facility] Class/4195 [address] [place] [address](SNOM Repository ED CT) 07/22/2014 Drug METHYLPHENIDATE HIVES [facility] Class/4195 ANALOGUES [place] [address](SNOM Repository ED CT) ENCOUNTERS ENCOUNTERS ADMIT/DISCHARGE ACCOUNT ADMITTING ENCOUNTER LOCATION SOURCE NUMBER CLASS 11/07/2018 [id number] Ambulatory [facility] ing:HPRAD Repository 11/07/2018/11/07/19 [id number] Ambulatory BMSBuilding:B [place] 19 MS.[facility] Repository 11/01/2018 [id number] Ambulatory [facility] ing:PT Repository 09/29/2018/09/29/20 [id number] Emergency [address] ing:ED Repository 09/28/2018 [id number] Ambulatory [facility] ing:HPRAD Repository 09/28/2018/09/28/20 [id number] Ambulatory BMSBuilding:B [place] 18 MS.[facility] Repository 09/18/2018/09/18/20 [id number] Ambulatory BMSBuilding:B [place] 18 MS.[facility] Repository 09/13/2018/09/15/20 [id number] Ambulatory BMSBuilding:B [place] 18 MS.CF.[facility] Repository 09/13/2018/09/15/20 [id number] [place] [address] [facility] ing:ZH0Osne: Repository PW653Cbr: 1 09/11/2018/09/11/20 [id number] Ambulatory [address] [place] Repository 09/11/2018/09/12/20 [id number] Ambulatory [address] Repository 08/22/2018/08/22/20 [id number] Ambulatory BMSBuilding:B [place] 18 MS.[facility] Repository 08/14/2018/08/15/20 [id number] Ambulatory [address] Repository 07/04/2018/07/04/20 [id number] Ambulatory [address] Other [place] Repository 07/04/2018/07/05/20 [id number] Ambulatory [address] Repository 06/28/2018 [id number] Ambulatory [facility] ing:PAT Repository 06/15/2018 [id number] Ambulatory BMSBuilding:B [place] MS.[facility] Repository 05/24/2018 [id number] Ambulatory BMSBuilding:W [place] [facility] Repository 05/17/2018/05/17/20 [id number] Ambulatory [address] Repository 05/17/2018/05/18/20 [id number] Ambulatory [address] Repository 05/10/2018/05/10/20 [id number] Ambulatory [address] Other [place] Repository 05/09/2018/05/09/20 [id number] Ambulatory BMSBuilding:B [place] 18 MS.[facility] Repository 03/22/2018/03/23/20 [id number] Ambulatory [address] Main [place] Repository 03/06/2018/03/07/20 [id number] Ambulatory [address] Repository 02/17/2018/02/22/20 [id number] Ambulatory [address] Main [place] Repository 02/16/2018 [id number] Ambulatory [facility] [place] Repository 02/03/2018/02/04/20 [id number] Ambulatory [address] ing:PT Repository 01/18/2018/01/19/[id number] Repository PAYERS PAYERS ENCOUNTER GUARANTOR PAYER SUBSCRIBER SOURCE 11/07/2018 MCKAYLA SOOLRZANO Primary MCKAYLA Kapoor [id number] LISHA Insurance:CARESOURCEP IIDOB: Community LNAPT [address] [place] [address] Number: [id number] [address]Azs: [id number] Repository Date:2018-11-07P O (HP) [address]ATTN: [place] [address]FS: 11/07/2018 Secondary NOT GIVENUNK [place] Insurance:SELF PAY [facility] Number: Effective Repository Date:2018-11-07 11/07/2018 MCKAYLA SOLORZANO Primary MCKAYLA Kapoor [id number] LISHA Insurance:CARESOURCEP IIDOB: Community Health LNAPT [address] [place] [address] Number: [id number] [address]Fbt: [id number] Repository Date:2018-09-28P O (HP) [address]ATTN: [place] [address]ZY: 11/07/2018 Secondary NOT GIVENUNK [place] Insurance:SELF PAY [facility] Number: Effective Repository Date:2018-10-26 11/01/2018 MCKAYLA SOLORZANO Primary MCKAYLA Kapoor [id number] LISHA Insurance:CARESOURCEP IIDOB: Community LNAPT [address] [place] [address] Number: [id number] [address]Waj: [id number] Repository Date:2018-10-16 O (HP) [address]ATTN: [place] [address]OZ: 11/01/2018 Secondary NOT GIVENUNK [place] Insurance:SELF PAY [facility] Number: Effective Repository Date:2018-10-16 09/29/2018 MCKAYLA SOLORZANO Primary MCKAYLA Kapoor [id number] LIS[place] Insurance:CARESOURCEP IIDOB: Community LNAPT anahi LEAL Number: [id number] [facility] Center [address]Csw: [id number] Repository Date:2018-09-29P O () [address]ATTN: [place] [address]CO: 09/29/2018 Secondary NOT GIVENUNK [place] Insurance:[facility]LF [facility]Y [facility] Effective Repository Date:2018-09-29 09/28/2018 MCKAYLA SOLORZANO Primary MCKAYLA SOLORZANO [place] [id number] LISHA Insurance:CARESOURCEP IIDOB: Community LNAPT anahi JONAS Number: [id number] [address]Tzi: [id number] Repository Date:2018-09-28P O () [address]ATTN: [place] [address]DO: 09/28/2018 Secondary NOT GIVENUNK [place] Insurance:SELF PAY [facility] Number: Effective Repository Date:2018-09-28 09/28/2018 MCKAYLA SOLORZANO Primary MCKAYLA SOLORZANO [place] [id number] LISHA Insurance:CARESOURCEP IIDOB: Community LNAPT [place]ve JONASicgómez Number: [id number] Regional Medical Center [address]Vcc: [id number] Repository Date:2018-08-25P O () [address]ATTN: [place] [address]SO: 09/28/2018 Secondary NOT GIVENUNK [place] Insurance:SELF PAY [facility] Number: Effective Repository Date:2018-09-25 09/18/2018 MCKAYLA SOLORZANO Primary MCKAYLA Alcantaroster [id number] LISHA Insurance:CARESOURCEP IIDOB: Community LNAPT [address] JONASicy Number: [id number] Regional Medical Center [address]Pit: [id number] Repository Date:2018-09-15P O (HP) [address]ATTN: [place] [address]EC: 09/18/2018 Secondary NOT GIVENUNK [place] Insurance:SELF PAY [facility] Number: Effective Repository Date:2018-09-18 09/13/2018 MCKAYLA SOLORZANO Primary MCKAYLA SOLORZANO [place] [id number] LISHA Insurance:CARESOURCEP IIDOB: Community LNAPT 12WPAWANERjuveicy Number: [id number] [address]Qnw: [id number] Repository Date:2018-08-25P O (HP) [address]ATTN[place] [address]ML: 09/13/2018 Secondary NOT GIVENUNK [place] Insurance:SELF PAY [facility] Number: Effective Repository Date:2018-09-13 09/13/2018 MCKAYLA SOLORZANO Primary MCKAYLA SOLORZANO [place] [id number] LISHA Insurance:CARESOURCEP IIDOB: Community LNAPT 12WPAWANER, juveicy Number: [id number] [facility] [address]Utd: [id number] Repository Date:2018-08-25P O (HP) [address]N: [place] [address]IP: 09/13/2018 Secondary NOT GIVENUNK [place] Insurance:SELF PAY [facility] Number: Effective Repository Date:2018-08-25 08/22/2018 MCKAYLA SOLORZANO Primary MCKAYLA SOLORZANO [place] [id number] LISHA Insurance:CARESOURCEP IIDOB: Community LNAPT 12WPAWANER, olicy Number: [id number] [facility] [address]Brw: [id number] Repository Date:2018-08-01P O (HP) [address]ATTN: [place] [address]XF: 08/22/2018 Secondary NOT GIVENUNK [place] Insurance:SELF PAY [facility] Number: Effective Repository Date:2018-08-22 06/28/2018 MCKAYLA Stewart SOLORZANO Primary MCKAYLA SOLORZANO [place] [id number] LIS[place] Insurance:CARESOURCEP IIDOB: Community LNAPT [address] [place], [place] [address]royay Number: [id number] [facility] [address]Chd: [id number] Repository Date:2018-05-10P O () [address]ATTN: [place] [address]MX: 06/28/2018 Secondary NOT GIVENUNK [place] Insurance:SELF PAY [facility] Number: Effective Repository Date:2018-05-10 06/15/2018 MCKAYLA SOLORZANO Primary NOT GIVENUNK [place] [id number] L[place] Insurance:[facility] [address] [place] [id number]: Number: Effective Repository Date:2018-05-10 () 05/24/2018 MCKAYLA SOLORZANO Primary NOT GIVENUNK [place] [id number] LISHA Insurance:SELF PAY [facility] L[facility] [address] [place] [address]Zij: Number: Effective Repository Date:2018-05-24 () 05/09/2018 MCKAYLA SOLORZANO Primary MCKAYLA SOLORZANO [place] [id number] LIS[place] Insurance:CARESOURCEP IIDOB: Community LNAPT [address] [place], [place] [address]juveicy Number: [id number] Regional Medical Center [address]Jkr: [id number] Repository Date:2018-04-26P O () [address]ATTN: [place] [address]AF: 05/09/2018 Secondary NOT GIVENUNK [place] Insurance:SELF PAY [facility] Number: Effective Repository Date:2018-05-09 02/03/2018 MCKAYLA Stewart SOLORZANO Primary MCKAYLA SOLORZANO [place] [id number] LIS[place] Insurance:CARESOURCEP IIDOB: Community LNAPT [address] [place], [place] [address]juvey Number: [id number] Regional Medical Center [address]Mzx: [id number] Repository Date:2014-06-17P O (ZF) [address]ATTN: [place] [address]MC: 02/03/2018 Secondary NOT GIVENUNK [place] Insurance:SELF PAY [facility]: Effective Repository Date:2017-08-25
== END ==
PROVIDERS: Family Provider Internal Medicine; PCP Internal Medicine; Referring Provider Physician Assistant; Visit Provider Physician Assistant
DX: M25.562 Pain in left knee (principal)
CPT/HCPCS: 73564

== ENCOUNTER 2019-04-02 15:30 | Outpatient (RCR) | payer MEDICAID, SELFPAY ==
--- NOTE | 2018-11-02 17:24 | HP.PTEVAL ---
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 Date of Evaluation: 11/01/18 Physical Therapist: Geovanni Nicole, PT, Cert MDT, OCS - Visit Plan Frequency: 2x /Week Duration: 3 Months Plan: S/P TTO AND LATERAL RELEASE 09/13. S/P 7 WEEKS. AMBULATES WITH CRUTHCHES WITH WBAT KNEE BRACE LOCKED IN EXTENSION. GRADE PROGREESION OF AROM KNEE,PROGRESS ANANT WITH STRENGTHENING QUAD/HAMS/HIP,GRADE PROGRESSION WB EXERCIES ANANT ,GAIT,BALANCE AND PROPRIOCEPTION ANANT. OKAY NMES ,VASO,CP - Subjective Findings: This 38 y/o male presents with physical therapy with s/p open tibial tubercle osteotomy and lateral release on 09/13/[address] Richardson at [facility] . Pateint brace locked in extension with NWB LLE. Patient seen DR Castillo 09/28/18 cheri to wean from crutches with WBAT with brace locked into extension. Patient ent ER had US to R/O DVT in September. Patient continues to have impairments with walking,stairs impairs ADL's and function. Patient denies paratesia/tinling. Patient surgery impairs function and QOL.Patient was to start PT SEP 28 but patient unable to get here due to transportion. SOCIAL: . VOCATION: disablity - Pain Left Knee Pain Intensity (Out of 10): 4 Pain Intensity Range: 10 - Objective POSTURE: KNEE BRACE LOCKED IN EXTENSION. NEURO: INTACT. PALAPTION: patella knee sensative too touch. SKIN: incsion well aproximate. EDEMA: effusion patella and knee 1+. AROM: 5-65 degrees supine knee flexion. QUAD CONTRACTION: poor. MMT: poor quads/hams,3/5 hip flexion abduction/extension/adduction. GAIT: Ambulates with knee brace locked in extension with crutches with WBAT LLE. BALANCE: fair+ with crutches. - HOMMANS - Goals Goal 1:: Patient to be Independant with HEP Goal Time Frame: 12-16 Weeks Goal 2:: Patient to decrease pain knee by 70% r greater to improve function with gait. Goal Time Frame: 12-16 Weeks Goal 3:: Patient to improve AROM supine knee flexion 0-125 degrees supine to improve gait Goal Time Frame: 12-16 Weeks Goal 4:: Patient to increase strength quads/hams/hip 4/5 to improve function/ADL'S and gait Goal Time Frame: 12-16 Weeks Goal 5:: Patient to ambualted with normal farhat Goal Time Frame: 12-16 Weeks Goal 6:: Patient to improve LFES score 10-15 points to QOL and function. Goal Time Frame: 12-16 Weeks - Rehabilitation Potential Physical Therapy Diagnosis: Patient underwent s/p TT left knee ,lateral release ,partial lateral menisectomy on 09/13/18. with poor ROM ,strength,gait,balance impairs ADL'S and function thus benifit from skilled PT Rehabilitation Potential: Good - Anticipated Interventions Patient/Client Instruction: Educate patient on: Condition, Plan of Care For the Purpose of:: To decrease pain, To increase ROM, To improve muscle performance and motor function, To improve ability to perform ADL's, To increase tolerance to activity/condition/position, To improve ability of physical actions for home/community/work/leisure, To improve health of tissue, To decrease soft tissue restriction, To increase flexibility/ROM, To improve endurance, To improve balance, To improve safety with gait, To assume or resume ADL's, To improve ability to perform tasks related to life management, To improve tolerance to ADL's Therapeutic Exercise to Include: Strength training, Power training, Balance training, Flexibilty training, Gait and locomotor training, Passive ROM, Active ROM Comment: GRADE PROGRESSION HIP/KNEE ,WB ACTIVITIES ANANT For the Purpose of:: To decrease pain, To decrease swelling/inflammation, To increase ROM, To improve muscle performance and motor function, To improve ability to perform ADL's, To increase tolerance to activity/condition/position, To improve performance and independence with ADL's, To improve ability of physical actions for home/community/work/leisure, To improve gait and locomotor functions, To improve health of tissue, To decrease soft tissue restriction, To improve endurance, To improve balance, To improve safety with gait, To improve ability to perform tasks related to life management Functional electric stimulation: Yes TENS: Yes IF ES: Yes Cryotherapy (ice pack, ice massage): Yes Vasopneumatic device: Yes For the Purpose of:: To decrease pain, To decrease swelling/inflammation, To increase ROM, To improve nutrient delivery to tissue, To improve health of tissue, To decrease soft tissue restriction Thank you for the opportunity to evaluate your patient. For Medicare and Medicare HMO plans, please review the plan of care and approve it. It will need to be FAXED BACK to us at [phone] for Medicare purposes. For Medicare only, by signing this I certify the plan of care. Please let me know if there are questions or concerns regarding this plan of care. Physician Signature: Date:
--- NOTE | 2018-11-14 11:49 | HP.PTEVAL_ITS ---
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 Date of Evaluation: 11/01/18 Physical Therapist: Geovanni Nicole PT, Cert MDT, OCS - Visit Plan Frequency: 2x /Week Duration: 3 Months Plan: S/P TTO AND LATERAL RELEASE 09/13. S/P 7 WEEKS. AMBULATES WITH CRUTHCHES WITH PWB KNEE BRACE LOCKED IN EXTENSION. OKAY TO UNLOCK BRACE TO 30 DEGREES. GRADE PROGREESION OF AROM KNEE,PROGRESS ANANT WITH STRENGTHENING QUAD/HAMS/HIP,GRADE PROGRESSION WB EXERCIES ANANT ,GAIT,BALANCE AND PROPRIOCEPTION ANANT. OKAY NMES ,VASO,CP - Subjective Findings: This 38 y/o male presents with physical therapy with s/p open tibial tubercle osteotomy and lateral release on 09/13/[address] Richardson at [facility] . Pateint brace locked in extension with NWB LLE. Patient seen DR Castillo 09/28/18 with PWB with brace locked into extension. Patient ent ER had US to R/O DVT in September. Patient continues to have impairments with walking,stairs impairs ADL's and function. Patient denies paratesia/tinling. Patient surgery impairs function and QOL.Patient was to start PT SEP 28 but patient unable to get here due to transportion. SOCIAL: . VOCATION: disablity - Pain Left Knee Pain Intensity (Out of 10): 5 Pain Intensity Range: 10 - Objective POSTURE: KNEE BRACE LOCKED IN EXTENSION. NEURO: INTACT. PALAPTION: patella knee sensative too touch. SKIN: incsion well aproximate. EDEMA: effusion patella and knee 1+. AROM: 5-65 degrees supine knee flexion. QUAD CONTRACTION: poor. MMT: poor quads/hams,3/5 hip flexion abduction/extension/adduction. GAIT: Ambulates with knee brace locked in extension with crutches with WBAT LLE. BALANCE: fair+ with crutches. - ERMIASS - Goals Goal 1:: Patient to be Independant with HEP Goal Time Frame: 12-16 Weeks Goal 2:: Patient to decrease pain knee by 70% r greater to improve function with gait. Goal Time Frame: 12-16 Weeks Goal 3:: Patient to improve AROM supine knee flexion 0-125 degrees supine to improve gait Goal Time Frame: 12-16 Weeks Goal 4:: Patient to increase strength quads/hams/hip 4/5 to improve function/ADL'S and gait Goal Time Frame: 12-16 Weeks Goal 5:: Patient to ambualted with normal farhat Goal Time Frame: 12-16 Weeks Goal 6:: Patient to improve LFES score 10-15 points to QOL and function. Goal Time Frame: 12-16 Weeks - Rehabilitation Potential Physical Therapy Diagnosis: Patient underwent s/p TT left knee ,lateral release ,partial lateral menisectomy on 09/13/18. with poor ROM ,strength,gait,balance impairs ADL'S and function thus benifit from skilled PT Rehabilitation Potential: Good - Anticipated Interventions Patient/Client Instruction: Educate patient on: Condition, Plan of Care For the Purpose of:: To decrease pain, To increase ROM, To improve muscle performance and motor function, To improve ability to perform ADL's, To increase tolerance to activity/condition/position, To improve ability of physical actions for home/community/work/leisure, To improve health of tissue, To decrease soft tissue restriction, To increase flexibility/ROM, To improve endurance, To improve balance, To improve safety with gait, To assume or resume ADL's, To improve ability to perform tasks related to life management, To improve tolerance to ADL's Therapeutic Exercise to Include: Strength training, Power training, Balance training, Flexibilty training, Gait and locomotor training, Passive ROM, Active ROM Comment: GRADE PROGRESSION HIP/KNEE ,WB ACTIVITIES ANANT For the Purpose of:: To decrease pain, To decrease swelling/inflammation, To increase ROM, To improve muscle performance and motor function, To improve ability to perform ADL's, To increase tolerance to activity/condition/position, To improve performance and independence with ADL's, To improve ability of physical actions for home/community/work/leisure, To improve gait and locomotor functions, To improve health of tissue, To decrease soft tissue restriction, To improve endurance, To improve balance, To improve safety with gait, To improve ability to perform tasks related to life management Functional electric stimulation: Yes TENS: Yes IF ES: Yes Cryotherapy (ice pack, ice massage): Yes Vasopneumatic device: Yes For the Purpose of:: To decrease pain, To decrease swelling/inflammation, To increase ROM, To improve nutrient delivery to tissue, To improve health of tissue, To decrease soft tissue restriction Thank you for the opportunity to evaluate your patient. For Medicare and Medicare HMO plans, please review the plan of care and approve it. It will need to be FAXED BACK to us at [phone] for Medicare purposes. For Medicare only, by signing this I certify the plan of care. Please let me know if there are questions or concerns regarding this plan of care. Physician Signature: Date:
--- NOTE | 2018-11-14 11:53 | HP.PTEVAL_ITS ---
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 Date of Evaluation: 11/01/18 Physical Therapist: Geovanni Nicole PT, Cert MDT, OCS - Visit Plan Frequency: 2x /Week Duration: 3 Months Plan: S/P TTO AND LATERAL RELEASE 09/13. S/P 7 WEEKS. SEE TIBIAL OSTEOTOMY PRACTICE [facility]. AMBULATES WITH CRUTHCHES WITH PWB KNEE BRACE LOCKED IN EXTENSION. GRADE PROGREESION OF AROM KNEE,PROGRESS ANANT WITH STRENGTHENING QUAD/HAMS/HIP,GRADE PROGRESSION WB EXERCIES ANANT ,GAIT,BALANCE AND PROPRIOCEPTION ANANT. OKAY NMES ,VASO,CP - Subjective Findings: This 38 y/o male presents with physical therapy with s/p open tibial tubercle osteotomy and lateral release on 09/13/[address] Richardson at [facility] . Pateint brace locked in extension with NWB LLE. Patient seen DR Castillo 09/28/18 with PWB with brace locked into extension. Patient ent ER had US to R/O DVT in September. Patient continues to have impairments with walking,stairs impairs ADL's and function. Patient denies paratesia/tinling. Patient surgery impairs function and QOL.Patient was to start PT SEP 28 but patient unable to get here due to transportion. SOCIAL: . VOCATION: disablity - Pain Left Knee Pain Intensity (Out of 10): 5 Pain Intensity Range: 10 - Objective POSTURE: KNEE BRACE LOCKED IN EXTENSION. NEURO: INTACT. PALAPTION: patella knee sensative too touch. SKIN: incsion well aproximate. EDEMA: effusion patella and knee 1+. AROM: 5-65 degrees supine knee flexion. QUAD CONTRACTION: poor. MMT: poor quads/hams,3/5 hip flexion abduction/extension/adduction. GAIT: Ambulates with knee brace locked in extension with crutches with WBAT LLE. BALANCE: fair+ with crutches. - HOMMANS - Goals Goal 1:: Patient to be Independant with HEP Goal Time Frame: 12-16 Weeks Goal 2:: Patient to decrease pain knee by 70% r greater to improve function with gait. Goal Time Frame: 12-16 Weeks Goal 3:: Patient to improve AROM supine knee flexion 0-125 degrees supine to improve gait Goal Time Frame: 12-16 Weeks Goal 4:: Patient to increase strength quads/hams/hip 4/5 to improve function/ADL'S and gait Goal Time Frame: 12-16 Weeks Goal 5:: Patient to ambualted with normal farhat Goal Time Frame: 12-16 Weeks Goal 6:: Patient to improve LFES score 10-15 points to QOL and function. Goal Time Frame: 12-16 Weeks - Rehabilitation Potential Physical Therapy Diagnosis: Patient underwent s/p TT left knee ,lateral release ,partial lateral menisectomy on 09/13/18. with poor ROM ,strength,gait,balance impairs ADL'S and function thus benifit from skilled PT Rehabilitation Potential: Good - Anticipated Interventions Patient/Client Instruction: Educate patient on: Condition, Plan of Care For the Purpose of:: To decrease pain, To increase ROM, To improve muscle performance and motor function, To improve ability to perform ADL's, To increase tolerance to activity/condition/position, To improve ability of physical actions for home/community/work/leisure, To improve health of tissue, To decrease soft tissue restriction, To increase flexibility/ROM, To improve endurance, To improve balance, To improve safety with gait, To assume or resume ADL's, To improve ability to perform tasks related to life management, To improve tolerance to ADL's Therapeutic Exercise to Include: Strength training, Power training, Balance tra ining, Flexibilty training, Gait and locomotor training, Passive ROM, Active ROM Comment: GRADE PROGRESSION HIP/KNEE ,WB ACTIVITIES ANANT For the Purpose of:: To decrease pain, To decrease swelling/inflammation, To increase ROM, To improve muscle performance and motor function, To improve ability to perform ADL's, To increase tolerance to activity/condition/position, To improve performance and independence with ADL's, To improve ability of physical actions for home/community/work/leisure, To improve gait and locomotor functions, To improve health of tissue, To decrease soft tissue restriction, To improve endurance, To improve balance, To improve safety with gait, To improve ability to perform tasks related to life management Functional electric stimulation: Yes TENS: Yes IF ES: Yes Cryotherapy (ice pack, ice massage): Yes Vasopneumatic device: Yes For the Purpose of:: To decrease pain, To decrease swelling/inflammation, To increase ROM, To improve nutrient delivery to tissue, To improve health of tissue, To decrease soft tissue restriction Thank you for the opportunity to evaluate your patient. For Medicare and Medicare HMO plans, please review the plan of care and approve it. It will need to be FAXED BACK to us at [phone] for Medicare purposes. For Medicare only, by signing this I certify the plan of care. Please let me know if there are questions or concerns regarding this plan of care. Physician Signature: Date:
== END 2019-04-02 19:00 | disposition home or self-care (01) ==
LOC: PT 15:30
PROVIDERS: Family Provider Internal Medicine; PCP Internal Medicine; Visit Provider Orthopaedic Surgery
DX: Z98.890 Other specified postprocedural states (principal)
CPT/HCPCS: 97014; 97016; 97110; 97162; G0283

== ENCOUNTER 2021-08-10 18:38 | Emergency (ER) | payer MEDICAID, SELFPAY ==
[2021-08-10 18:38] VITALS: BP 129/83; PULSE 106; RESP 20; TEMP 37.6; O2SAT 97; BMI 50.1
--- NOTE | 2021-08-10 18:51 | EX.ED.GENINJ ---
HPI History of Present Illness Chief Complaint: Fall Detail of Chief Complaint: Injury to central low back, anterior right chest and left knee and ankle Informant: patient and spouse/S.O. Onset/Context/Timing Onset: Today Mechanism/Context: Fall Location: Previously documented Current Severity: Mild Maximum Severity: Moderate Worsened by: Movement, palpation and weightbearing Relieved by: Nothing Associated Symptoms Associated Symptoms: Negative for Parasthesias, Weakness, Loss of function, Inability to ambulate, Loss of consciousness and Amnesia Narrative Narrative: Patient is a 40-year-old morbidly obese male who was walking down a ramp at his mom's house. He fell. He states his leg was bent backwards. He developed instantaneous left knee and ankle pain. He wrapped his left ankle with an Alan wrap. He also complains of central low back pain and anterior right rib pain. He denied head trauma. No loss of conscious. Denies neck pain. He denies paresthesia, anesthesia or motor expressly or at the time of the impact. He is not on an anticoagulant. He denies nausea or vomiting. He denies visual, ocular auditory symptoms. Tetanus Immunization: 5-10 years Prior similar symptoms: No Recent Ill[facility] Medical History Chronic neck pain Chronic shoulder pain Home Medications omeprazole 20 mg PO DAILY 08/28/15 [History Last Taken Unknown] gabapentin 600 mg PO DAILY 03/16/16 [History Last Taken Unknown] methocarbamol 500 mg PO TID 03/16/16 [History Last Taken Unknown] acetaminophen 500 - 1,000 mg PO Q6H PRN PRN 05/24/18 [History Last Taken Unknown] ergocalciferol (vitamin D2) 50,000 unit PO 08/10/21 [History Last Taken Unknown] hydrocodone-acetaminophen 1 tab PO Q6H PRN PRN 3 Days #10 tablet 08/10/21 [Rx Last Taken Unknown] meloxicam 15 mg PO DAILY 08/10/21 [History Last Taken Unknown] Allergy/AdvReac Type Severity Reaction Status Date / Time buprenorphine [From Butrans] Allergy Rash Verified 08/10/21 18:41 methylphenidate HCl Allergy Hives Verified 08/10/21 18:41 [From Ritalin] Penicillins [PCN] Allergy Hives Verified 08/10/21 18:41 Family History Other Arthritis Cancer Hypertension Surgical History h/o left knee TTO surgery History of incision and drainage S/P left knee arthroscopy Social History (Updated 08/10/21 @ 18:[address] Benji Queen MD) household members: significant other Smoking Status: Never smoker substance use type: does not use ROS ROS ED Constitutional Constitutional ED: Denies chills, fever(s) or subjective Eyes Eyes: Denies blurry vision or change in vision ENT ENT ED: Denies ear pain, rhinorrhea or sore throat Cardiovascular Cardiovascular: Denies chest pain, palpitations or racing heartbeat Respiratory/Chest Respiratory/Chest: Denies cough, dyspnea or dyspnea on exertion Gastrointestinal Gastrointestinal: Denies abdominal pain, diarrhea, nausea or vomiting Genitourinary Genitourinary ED: Denies dysuria, hematuria or urinary frequency Musculoskeletal Musculoskeletal: Reports back pain and other Details: Left ankle in the ; Denies arthralgias, myalgias or neck pain Integumentary Denies Abrasions or rash Neurologic Neurologic: Denies headache(s) or weakness Hematologic/Lymphatic Hematologic/Lymphatic: Denies easy bleeding or easy bruising EXAM Physical Exam Const Vital Signs: 08/10/21 18:38 08/10/21 19:06 Temperature 99.7 F H Temperature Source Temporal Pulse Rate 106 H Respiratory Rate 20 H Respiratory Effort Normal Respiratory Depth Normal Respiratory Pattern Normal Blood Pressure 129/83 H Blood Pressure Mean 98 Pulse Ox 97 Oxygen Delivery Method Room Air Room Air Positive well nourished, well developed and obese; Negative for cachectic, contractures or unkempt General Appearance ED: well developed; Negative for unkempt, cachectic or contractures Nutritional Appearance: obese; Negative for cachectic HEENT Reports TM's clear HEENT Narrative: No complaints of basilar skull fracture. atraumatic Nose: Negative for septum abnormal Tympanic Membrane ED: Yes TM's clear Eyes PERRL and EOMs intact bilaterally General Eye ED: Yes other Other Details: No evidence of subconjunctival hemorrhage Neck full ROM General: tenderness Chest Wall inspection of chest normal and palpation of chest normal Breast/Axilla Inspection: other Other Details: Complained of significant pain over the anterior right fourth, fifth, sixth and seventh rib there was no crepitus or subcutaneous air. Resp normal respiratory effort and clear to auscultation bilaterally Cardio regular rhythm, S1 normal heart sound, S2 normal heart sound and no murmurs Rate: regular rate GI normal to inspection, nondistended, normoactive bowel sounds, non-tender and non-distended Palpation: soft Back/Spine normal to inspection; Negative for no thoracic nor lumbar tenderness Back/Spine Narrative: Pain on palpation over L2-L3 spinous process General Back: Negative for CVA tenderness Thoracic Spine / Upper Back: Negative for thoracic spinal tenderness Extremity full ROM; Negative for normal to inspection Extremity Narrative: There is no pain the patient over the lateral medial malleolus. There is no pain ovation of the base of the fifth metatarsal. There is no lax with drawer testing. DP and PT pulse are palpable. Per the [place] ankle rule imaging of the ankle is not indicated. The left knee is swollen compared to the right. Patella is not ballotable. There may be a small effusion. There is joint line tenderness. There is no laxity with varus valgus stress testing. Clarence's test is negative. Modified Rose Marie's test is negative. He is able to extend 180 degrees and bend/flex to 90 degrees. General Extremety ED: Yes tenderness; Negative for deformity or edema General Extremity: Negative for deformity or edema Neuro oriented x3, CN's II-XII intact bilaterally, no focal motor deficits and no sensory deficits noted Sensorium / Orientation: alert Motor Exam: strength 5/5 throughout Psych mental status grossly normal and thought process normal Appearance: Negative for unkempt Skin no rashes or lesions noted, no wounds, skin turgor normal and no jaundice MDM MDM MDM Narrative Medical decision making narrative: X-ray of the LS-spine was obtained rule out compression fracture. X-ray of the knee was obtained to rule out fracture or any abnormality. X-ray of the chest was obtained to evaluate for pneumothorax. Clinically I do not believe he has a fractured rib. Patient was medicated with [place] since his significant other is with him and is able to drive him home. Radiography Diagnostic Testin view chest x-ray shows no evidence of fracture, pneumothorax, hemothorax, pulmonary contusion. Cardiac size and silhouette normal. Hilum is normal. 4 view x-ray of the knee reveals prior hardware from fracture. No acute process noted. Minimal degenerative changes of the patella noted. Three-view x-ray of the LS-spine reveals mild degenerative changes of L4 and L5. The spaces are symmetric. There is no fracture, subluxation or dislocation. All x-rays were interpreted by me at 1941. Discharge Plan Triage Chief Complaint: Fall ED Provider: Benji Queen Dx/Rx/DC Orders Clinical Impression: Injury due to fall, Contusion of lower back and pelvis, initial encounter, Contusion of right chest wall, Sprain of left knee, Sprain of ligament of left ankle Instructions: ED Back Contusion, ED Chest Wall Contusion, ED Knee Sprain, ED Ankle Sprain (Adult) Prescriptions: New hydrocodone-acetaminophen [hydrocodone-acetaminophen] 1 TABLET tablet 1 tab PO Q6H PRN PRN (Reason: Pain) 3 Days Qty: 10 RF: 0 No Action omeprazole 20 MG capsule 20 mg PO DAILY RF: 0 acetaminophen 500 MG tablet 500 - 1,000 mg PO Q6H PRN PRN (Reason: Pain) RF: 0 meloxicam 15 mg tablet 15 mg PO DAILY RF: 0 ergocalciferol (vitamin D2) 1,250 mcg (50,000 unit) capsule 50,000 unit PO RF: 0 methocarbamol 500 MG tablet 500 mg PO TID RF: 0 gabapentin 600 MG tablet 600 mg PO DAILY RF: 0 Primary Care Provider: Kaitlin Gudino Referrals: Kaitlin Gudino MD [Primary Care Provider] - 1 Week if not improving Disposition Disposition: Home, Self Care
--- NOTE | 2021-08-10 19:00 | RAD_ITS ---
STUDY: X-RAY - LEFT KNEE REASON FOR EXAM: Male, 40 years old. Injury/Pain TECHNIQUE: 4 view(s) of the knee. COMPARISON: None. FINDINGS: Postsurgical changes involving the proximal tibial shaft. Normal proximal tibiofibular articulation. Normal medial femorotibial compartment. Narrowed lateral femorotibial compartment. Narrowed patellofemoral articulation. The soft tissue structures are unremarkable. RAD/Knee 4 or More Views IMPRESSION: Moderate osteoarthritic change. No evidence for acute fracture. Postsurgical changes of proximal tibial shaft Electronically Signed: Riley Denis MD at 20:43 EDT , Service support ,
--- NOTE | 2021-08-10 19:00 | RAD_ITS ---
STUDY: X-RAY CHEST REASON FOR EXAM: Male, 40 years old. Blunt trauma, pain anterior right chest wall TECHNIQUE: PA and lateral COMPARISON: None. FINDINGS: The lungs are clear and expanded. There is no demonstrated pleural abnormality. Normal size heart. Normal mediastinum and may. Normal visualized pulmonary arteries. Normal visualized aortic arch and descending thoracic aorta. Normal visualized thoracic spine. Normal visualized ribs, clavicles, and shoulders. There is no demonstrated abnormality of the visualized soft tissue structures of the upper abdomen. RAD/Chest PA and Lateral IMPRESSION: Normal x-ray examination of the chest. Electronically Signed: Riley Denis MD at 20:45 EDT , Service support ,
--- NOTE | 2021-08-10 19:00 | RAD_ITS ---
STUDY: X-RAY - LUMBAR SPINE REASON FOR EXAM: Male, 40 years old. Injury/Pain TECHNIQUE: 3 view(s) of the lumbar spine were obtained. COMPARISON: None FINDINGS: Normal lumbar lordosis. There is no substantial scoliosis. There is a normal alignment of the vertebrae. No evidence for acute fracture or subluxation. No lytic or sclerotic bony lesions. Mild narrowing of L3-4 and L4-5 disc spaces with endplate spurring. The soft tissue structures are unremarkable. RAD/Lumbar Spine 2 or 3 Views IMPRESSION: Mild spondylosis. No acute fracture or other significant bony pathology Electronically Signed: Riley Denis MD at 20:44 EDT , Service support ,
[2021-08-10] MEDS: HYDROmorphone 1 MG/ML Syringe 0.5 MG IV (19:04)
[2021-08-10 20:08] VITALS: BP 122/60; PULSE 90; RESP 18
== END 2021-08-10 20:09 | disposition home or self-care (01) ==
PROVIDERS: Emergency Provider Emergency Medicine; PCP Internal Medicine
DX: S30.0XXA Contusion of lower back and pelvis, initial encounter (principal); S20.211A Contusion of right front wall of thorax, initial encounter; S83.92XA Sprain of unspecified site of left knee, initial encounter; S93.402A Sprain of unspecified ligament of left ankle, initial encounter; E66.01 Morbid (severe) obesity due to excess calories; Z79.899 Other long term (current) drug therapy; W19.XXXA Unspecified fall, initial encounter; Y93.01 Activity, walking, marching and hiking
CPT/HCPCS: 71046; 72100; 73564; 96374; 99282

== ENCOUNTER 2021-12-08 15:52 | Emergency (ER) | payer MEDICAID, SELFPAY ==
[2021-12-08 15:52] VITALS: BP 160/100; PULSE 100; RESP 18; TEMP 36.1; O2SAT 94; BMI 58.5
--- NOTE | 2021-12-08 16:34 | EKG12_ITS ---
Test Reason : Blood Pressure : / mmHG Vent. Rate : 104 BPM Atrial Rate : 104 BPM P-R Int : 144 ms QRS Dur : 090 ms QT Int : 354 ms P-R-T Axes : 037 002 065 degrees QTc Int : 465 ms Sinus tachycardia Poor R wave progression Confirmed by LEOBARDO HUYNH, KIKO ([id number]), market editor AALIYAH RODRIGUEZ ([id number]) on 12/11/2021 9:43:31 AM Referred By: VANITA Confirmed By:KIKO BOOTH MD
[2021-12-08 17:10] LABS: Absolute Lymphocyte Count 2.06 X10^3/uL (0.83-4.51); Absolute Neutrophil Count 6.2 X10^3/uL (2.0-7.7); Basophil# 0.06 X10^3/uL; Basophil% 0.7 % (0-1); Eosinophils% 2.2 % (0-5); Hematocrit 45.2 % (40-54); Hemoglobin 15.3 g/dL (13.0-16.5); Lymphocyte # 2.06 X10^3/ul (0.83-4.51); Lymphocyte % 22.8 % (19-41); Mean Corp Hgb Conc 33.8 g/dL (32-36); Mean Corpuscular Hgb 30.4 pg (27.0-32.0); Mean Corpuscular Volume 89.7 fL (80-94); Mean Platelet Vol. 10.8 fl (6.2-12.0); Monocyte% 5.5 % (0-10); NRBC Flagged by Analyzer 0 % (0-5); Neutrophil # 6.16 X10^3/uL (2.7-7.7); Neutrophil % 68.4 % (47-70); Platelet Count 253 K/mm3 (150-450); RBC Distribution Width CV 13.2 % (11.6-14.6); Red Blood Count 5.04 M/mm3 (4.6-6.2)
--- NOTE | 2021-12-08 17:28 | RAD_ITS ---
STUDY: X-RAY CHEST REASON FOR EXAM: Male, 41 years old. Chest pain. TECHNIQUE: Single AP portable view of the chest. COMPARISON: 08/10/2021. FINDINGS: The decreased inspiratory effort. There is no new mass or infiltrate. There is no demonstrated pleural abnormality. Normal size heart. Normal mediastinum and may. Normal visualized pulmonary arteries. Normal visualized aortic arch and descending thoracic aorta. Normal visualized thoracic spine. Normal visualized ribs, clavicles, and shoulders. There is no demonstrated abnormality of the visualized soft tissue structures of the upper abdomen. RAD/Chest 1 View (Portable) IMPRESSION: No acute cardiopulmonary disease or major interval change. Electronically Signed: Jose Sapp DO at 18:11 [facility] ,
[2021-12-08 17:31] LABS: Anion Gap 4 (5-15); BUN 14 mg/dL (7-18); Calcium,Total 9.6 mg/dL (8.5-10.1); Chloride 104 mmol/L (98-107); Creatinine, Serum 0.74 mg/dL (0.70-1.30); EST Glomerular Filtration Rate 125 mL/min (>60); Est Glom Filt Rate - Afr Amer 152 mL/min (>60); Estimated Creatinine Clearance 128.38 ml/min; Glucose 110 mg/dL (74-106); Potassium 4.4 mmol/L (3.5-5.1); Sodium Level 138 mmol/L (136-145); Troponin-I HS 7 pg/mL (3.0-78.0)
[2021-12-08] MEDS: Aspirin 81 MG TAB.CHEW 324 MG PO (17:42)
--- NOTE | 2021-12-08 17:46 | ED.VIS.CHEST ---
HPI History of Present Illness Chief Complaint: Chest Pain Informant: patient Narrative Narrative: 41-year-old male present with chest pain. Patient states this started 4 days ago. States pain has been intermittent. He states the pain lasts 1 to 2 minutes at a time. He has had 2 episodes per day for the past 4 days. He had one episode of vomiting. He has had diarrhea. Denies fever or cough. Denies shortness of breath. He is not vaccinated for Covid. History of diabetes, no other CAD risk factors. No PE/DVT risk factors. Prior Similar Symptoms: Yes Recent Illness/Hospitalization: No CVD Risk Factors: Positive for Diabetes; Negative for Hypertension, Hypercholesterolemia, Family History 1' </=55 and Smoking PE Risk Factors: Negative for Recent Travel/Surgery, Recent Immobilization, Prior DVT or PE, Cancer and OCP + Smoking + >/=35 PFSH PFS Medical History (Updated 12/08/21 @ 21:[address] Morenita Chavarria MD) Chronic neck pain Chronic shoulder pain Diabetes Home Medications omeprazole 20 mg PO DAILY 08/28/15 [History Last Taken Unknown] gabapentin 600 mg PO DAILY 03/16/16 [History Last Taken Unknown] methocarbamol 500 mg PO TID 03/16/16 [History Last Taken Unknown] ergocalciferol (vitamin D2) 50,000 unit PO MOFR 08/10/21 [History Last Taken Unknown] meloxicam 15 mg PO DAILY 08/10/21 [History Last Taken Unknown] divalproex 500 mg PO DAILY 12/08/21 [History Last Taken Unknown] glipizide 5 mg PO DAILY 12/08/21 [History Last Taken Unknown] metformin 1,000 mg PO BID 12/08/21 [History Last Taken Unknown] risperidone 1 mg PO QHS 12/08/21 [History Last Taken Unknown] Allergy/AdvReac Type Severity Reaction Status Date / Time buprenorphine [From Butrans] Allergy Rash Verified 12/08/21 15:54 methylphenidate HCl Allergy Hives Verified 12/08/21 15:54 [From Ritalin] Penicillins [PCN] Allergy Hives Verified 12/08/21 15:54 Family History Other Arthritis Cancer Hypertension Surgical History h/o left knee TTO surgery History of incision and drainage S/P left knee arthroscopy Social History (Updated 08/10/21 @ 18:[address] Benji Queen MD) household members: significant other Smoking Status: Never smoker substance use type: does not use ROS ROS ED Constitutional Constitutional ED: Denies fever(s) Eyes Eyes: Denies change in vision ENT ENT ED: Denies rhinorrhea or sore throat Cardiovascular Cardiovascular: Reports chest pain; Denies palpitations Respiratory/Chest Respiratory/Chest: Denies cough or dyspnea Gastrointestinal Gastrointestinal: Reports diarrhea and vomiting; Denies abdominal pain or nausea Genitourinary Genitourinary ED: Denies dysuria Musculoskeletal Musculoskeletal: Denies myalgias Integumentary Denies rash Neurologic Neurologic: Denies headache(s) Psychiatric Psychiatric: Denies suicidal thoughts EXAM Physical Exam Const Vital Signs: 12/08/21 15:52 12/08/21 17:42 12/08/21 17:48 Temperature 97 F L Temperature Source Temporal Pulse Rate 100 95 Respiratory Rate 18 16 Respiratory Effort Respiratory Pattern Blood Pressure 160/100 H 140/86 H Blood Pressure Mean 120 104 Pulse Ox 94 94 Oxygen Delivery Method Room Air Room Air Room Air 12/08/21 17:51 12/08/21 19:20 12/08/21 21:00 Temperature Temperature Source Pulse Rate 85 88 Respiratory Rate 20 H 20 H Respiratory Effort Normal Non-Labored Respiratory Pattern Normal Blood Pressure 127/67 H 131/83 H Blood Pressure Mean 87 99 Pulse Ox 95 95 Oxygen Delivery Method Room Air Room Air 12/08/21 21:46 Temperature Temperature Source Pulse Rate 92 Respiratory Rate Respiratory Effort Respiratory Pattern Blood Pressure 151/86 H Blood Pressure Mean Pulse Ox 94 Oxygen Delivery Method Positive well nourished, well developed and obese General Appearance ED: well developed Nutritional Appearance: obese HEENT Reports normocephalic and head/scalp atraumatic Eyes PERRL and EOMs intact bilaterally Neck supple General: Negative for tenderness Chest Wall inspection of chest normal Resp normal respiratory effort and clear to auscultation bilaterally Cardio regular rate and regular rhythm GI soft to palpation, non-tender and non-distended Palpation: soft; Negative for guarding or rebound tenderness present no CVA tenderness Extremity normal to inspection Neuro oriented x3 Sensorium / Orientation: alert Psych mental status grossly normal MDM MDM MDM Narrative Medical decision making narrative: EKG is sinus tachycardia rate of 104 with no acute ischemic changes. CBC, chemistries unremarkable. Troponin is negative. Lipase is normal. Delta troponin is also negative. Chest x-ray read by myself and radiology shows no acute process. Patient is resting comfortably on reevaluation. Advised to follow-up closely with his primary care physician. Advised return to ED for worsening complaints. Lab Data Attestation: I reviewed the patient's lab results. Labs: Laboratory Results - last 24 hr 12/08/21 12/08/21 12/08/21 16:53 16:53 16:53 WBC 9.0 RBC 5.04 Hgb 15.3 Hct 45.2 MCV 89.7 MCH 30.4 MCHC 33.8 RDW Std Deviation 43.0 RDW Coeff of Hilary 13.2 Plt Count 253 MPV 10.8 Immature Gran % (Auto) 0.400 Neut % (Auto) 68.4 Lymph % (Auto) 22.8 Whitfield % (Auto) 5.5 Eos % (Auto) 2.2 Baso % (Auto) 0.7 Absolute Neuts (auto) 6.2 Absolute Lymphs (auto) 2.06 Nucleated RBC % 0 Sodium 138 Cancelled Potassium 4.4 Cancelled Chloride 104 Cancelled Carbon Dioxide 30.0 Cancelled Anion Gap 4 L Cancelled BUN 14 Cancelled Creatinine 0.74 Cancelled Estim Creat Clear Calc 128.38 Est GFR (MDRD) Af Amer 152 Cancelled Est GFR (MDRD) Non-Af 125 Cancelled BUN/Creatinine Ratio 19.0 Cancelled Glucose 110 H Cancelled Calcium 9.6 Cancelled Total Bilirubin 0.50 Cancelled AST 56 H Cancelled ALT 80 H Cancelled Alkaline Phosphatase 97 Cancelled Troponin I High Sens 7 Total Protein 8.1 Cancelled Albumin 3.4 Cancelled Globulin 4.7 H Cancelled Albumin/Globulin Ratio 0.7 L Cancelled Lipase 33 L Cancelled 12/08/21 19:06 WBC RBC Hgb Hct MCV MCH MCHC RDW Std Deviation RDW Coeff of Hilary Plt Count MPV Immature Gran % (Auto) Neut % (Auto) Lymph % (Auto) Whitfield % (Auto) Eos % (Auto) Baso % (Auto) Absolute Neuts (auto) Absolute Lymphs (auto) Nucleated RBC % Sodium Potassium Chloride Carbon Dioxide Anion Gap BUN Creatinine Estim Creat Clear Calc Est GFR (MDRD) Af Amer Est GFR (MDRD) Non-Af BUN/Creatinine Ratio Glucose Calcium Total Bilirubin AST ALT Alkaline Phosphatase Troponin I High Sens 7 Total Protein Albumin Globulin Albumin/Globulin Ratio Lipase Radiography Chest X-Ray - ED: 1 View, Read by ED Physician and Read by Radiologist Diagnostic Testing: Clinical Impression(s) from Imaging Studies Chest X-Ray 12/08/21 17:28 IMPRESSION: No acute cardiopulmonary disease or major interval change. Electronically Signed: Jose Sapp DO at 18:11 EST Reading Location ID and State: [address] [place] [address] Tel [phone], Service support , Discharge Plan Triage Chief Complaint: Chest Pain ED Provider: Morenita Chavarria Dx/Rx/DC Orders Clinical Impression: Atypical chest pain Instructions: ED Chest Pain, Uncertain Cause Prescriptions: No Action omeprazole 20 MG capsule 20 mg PO DAILY RF: 0 meloxicam 15 mg tablet 15 mg PO DAILY RF: 0 ergocalciferol (vitamin D2) 1,250 mcg (50,000 unit) capsule 50,000 unit PO MOFR RF: 0 metformin 500 mg tablet 1,000 mg PO BID RF: 0 glipizide 2.5 mg tablet extended release 24 hr 5 mg PO DAILY RF: 0 divalproex 500 mg tablet extended release 24 hr 500 mg PO DAILY RF: 0 risperidone 1 mg tablet 1 mg PO QHS RF: 0 methocarbamol 500 MG tablet 500 mg PO TID RF: 0 gabapentin 600 MG tablet 600 mg PO DAILY RF: 0 Primary Care Provider: Kaitlin Gudino Referrals: Kaitlin Gudino MD [Primary Care Provider] - Disposition Disposition: Home, Self Care
[2021-12-08 17:48] VITALS: BP 140/86; PULSE 95; RESP 16; O2SAT 94
[2021-12-08 18:41] LABS: ALB/GLOB Ratio 0.7 RATIO (0.9-2.4); AST(SGOT) 56 U/L (15-37); Alanine Aminotransfer ALT/SGPT 80 U/L (16-61); Albumin, Serum 3.4 g/dL (3.2-5.0); Alkaline Phosphatase 97 U/L (45-117); Globulin 4.7 g/dL (2.2-4.2); Lipase 33 U/L (73-393); Protein, Total 8.1 g/dL (6.4-8.2)
[2021-12-08 19:20] VITALS: BP 127/67; PULSE 85; RESP 20; O2SAT 95
[2021-12-08 19:37] LABS: Troponin-I HS 7 pg/mL (3.0-78.0)
[2021-12-08 21:00] VITALS: BP 131/83; PULSE 88; RESP 20; O2SAT 95
--- NOTE | 2021-12-08 21:34 | ED.RN ---
Called down to lab and she states they ran the two troponin tests on the two separate tubes. the first one at 1652 drawn by Tiffanie, and the second at 190 by Jessica (this nurse). Dr Chavarria is aware.
[2021-12-08 21:46] VITALS: BP 151/86; PULSE 92; O2SAT 94
== END 2021-12-08 22:02 | disposition home or self-care (01) ==
PROVIDERS: Emergency Provider Emergency Medicine; PCP Internal Medicine; Visit Provider Emergency Medicine
DX: R07.89 Other chest pain (principal); E11.9 Type 2 diabetes mellitus without complications; R19.7 Diarrhea, unspecified; R11.10 Vomiting, unspecified
CPT/HCPCS: 71045; 80053; 83690; 84484; 85025; 87426; 93005; 99285; A4216

== ENCOUNTER 2022-08-09 15:54 | Emergency (ER) | payer MEDICAID, SELFPAY ==
[2022-08-09 15:55] VITALS: BP 170/140; PULSE 107; RESP 20; TEMP 36.3; O2SAT 95; BMI 51.7
--- NOTE | 2022-08-09 16:00 | EKG12_ITS ---
Test Reason : CP Blood Pressure : / mmHG Vent. Rate : 105 BPM Atrial Rate : 105 BPM P-R Int : 146 ms QRS Dur : 084 ms QT Int : 350 ms P-R-T Axes : 039 037 064 degrees QTc Int : 462 ms Sinus tachycardia Otherwise normal ECG When compared with ECG of 08-DEC-2021 16:01, No significant change was found Confirmed by YAMILETH HUYNH, PILI ([id number]), market editor AALIYAH RODRIGUEZ ([id number]) on 08/13/2022 2:41:49 P M Referred By: ZHANG Confirmed By:ROYAL CARSON MD
--- NOTE | 2022-08-09 16:22 | ED.VIS.CHEST ---
HPI History of Present Illness Chief Complaint: Chest Pain Detail of Chief Complaint: Chest pain that started 2 days ago midsternal to right parasternal area Informant: patient Onset/Context/Timing Onset: Days (2 days. Also complains of heartburn with radiation to both shoulders and neck. He also complains of a burning sensation) Activity at onset: sudden Timing: Continuous Quality: Positive for Burning Location: Substernal and Right Parasternal Current Severity: Mild Maximum Severity: Moderate Worsened By: Nothing Relieved By: Nothing Associated Symptoms: Positive for Nausea, Diaphoresis, Dyspnea, Acid Reflux and - (He also complains of diarrhea); Negative for Cough, Fever, Lightheadedness or Palpitations Narrative Narrative: Patient is a 41-year-old male with history of type 2 diabetes, reflux, psychiatric disorder who presents with chest pain scribes a burning sensation midsternal/right parasternal area has been constant for 24 to 48 hours. He does believe the pain is radiated to his shoulders and neck. He also complains of burning sensation in his throat. He believes this is due to his GERD. He states he has been diaphoretic and complains of shortness of breath. He has increased shortness of breath with minimal activity i.e. walking across the room. He denies black or maroon-colored stool. He does endorse diarrhea this morning. He denies vomiting or nausea. He denies history of smoking. He occasionally have an alcoholic beverage. He occasionally has marijuana use. He denies any other drug use. He denies history of PE or DVT. He has no history of recent travel or surgery. Prior Similar Symptoms: No Recent Illness/Hospitalization: No CVD Risk Factors: Positive for Diabetes; Negative for Hypertension, Hypercholesterolemia or Smoking PE Risk Factors: Negative for Recent Travel/Surgery, Recent Immobilization, Prior DVT or PE, Cancer or OCP + Smoking + >/=35 TAD Risk Factors: Negative for Marfan's Syndrome, Hypertension or Family History [facility] Medical History (Updated 08/09/22 @ 21:[address] Benji Queen MD) Anxiety Chronic neck pain Chronic shoulder pain Diabetes Non-smoker Substance abuse Home Medications omeprazole 20 mg capsule,delayed release 20 mg PO DAILY GERD 08/28/15 [History Last Taken Unknown] gabapentin 600 mg tablet 600 mg PO DAILY PAIN 03/16/16 [History Last Taken Unknown] methocarbamol 500 mg tablet 500 mg PO TID MUSCLE RELAXANT 03/16/16 [History Last Taken Unknown] ergocalciferol (vitamin D2) 1,250 mcg (50,000 unit) capsule 50,000 unit PO MOFR 08/10/21 [History Last Taken Unknown] meloxicam 15 mg tablet 15 mg PO DAILY 08/10/21 [History Last Taken Unknown] divalproex 500 mg tablet,extended release 24 hr 500 mg PO DAILY 12/08/21 [History Last Taken Unknown] glipizide 2.5 mg tablet, extended release 24 hr 5 mg PO DAILY 12/08/21 [History Last Taken Unknown] metformin 500 mg tablet 1,000 mg PO BID 12/08/21 [History Last Taken Unknown] risperidone 1 mg tablet 1 mg PO QHS 12/08/21 [History Last Taken Unknown] sucralfate 1 gram tablet (Carafate) 1 g PO ACHS #120 tabs 08/09/22 [Rx Last Taken Unknown] Allergy/AdvReac Type Severity Reaction Status Date / Time buprenorphine [From Butrans] Allergy Rash Verified 08/09/22 15:59 methylphenidate HCl Allergy Hives Verified 08/09/22 15:59 [From Ritalin] Penicillins [PCN] Allergy Hives Verified 08/09/22 15:59 Family History Other Arthritis Cancer Hypertension Surgical History h/o left knee TTO surgery History of incision and drainage S/P left knee arthroscopy Social History household members: significant other Smoking Status: Never smoker substance use type: does not use ROS ROS ED Constitutional Constitutional ED: Denies chills, fever(s), subjective, sweats or weight loss Eyes Eyes: Reports none ENT ENT ED: Denies ear pain, rhinorrhea or sore throat Cardiovascular Cardiovascular: Reports as per HPI; Denies orthopnea or paroxysmal nocturnal dyspnea Respiratory/Chest Respiratory/Chest: Reports dyspnea and dyspnea on exertion; Denies cough, orthopnea or paroxysmal nocturnal dyspnea Gastrointestinal Gastrointestinal: Reports diarrhea; Denies abdominal pain, constipation, melena, nausea or vomiting Genitourinary Genitourinary ED: Denies dysuria, hematuria or urinary frequency Musculoskeletal Musculoskeletal: Denies arthralgias, back pain, myalgias or neck pain Integumentary Denies abscess or Abrasions Neurologic Neurologic: Denies headache(s), paresthesias or weakness Endocrine Endocrinology: Denies polydipsia, polyphagia or polyuria Hematologic/Lymphatic Hematologic/Lymphatic: Denies easy bleeding or easy bruising EXAM Physical Exam Const Vital Signs: 08/09/22 15:55 08/09/22 16:33 08/09/22 16:33 Temperature 97.4 F L Temperature Source Temporal Pulse Rate 107 H 100 Respiratory Rate 20 H 22 H Respiratory Effort Blood Pressure 170/140 H 150/82 H Blood Pressure Mean 150 104 Pulse Ox 95 92 92 Oxygen Delivery Method Room Air Room Air Room Air 08/09/22 16:33 08/09/22 17:59 08/09/22 18:25 Temperature Temperature Source Pulse Rate 98 98 Respiratory Rate 16 21 H Respiratory Effort Normal Blood Pressure 151/84 H 159/72 H Blood Pressure Mean 106 101 Pulse Ox 96 96 Oxygen Delivery Method Room Air Room Air 08/09/22 19:46 Temperature Temperature Source Pulse Rate 103 H Respiratory Rate 25 H Respiratory Effort Blood Pressure 125/68 H Blood Pressure Mean 87 Pulse Ox 98 Oxygen Delivery Method Room Air Positive well nourished, well developed, obese and unkempt General Appearance ED: unkempt, well developed and NAD Nutritional Appearance: obese HEENT Reports moist mucous membranes HEENT Narrative: Ears normal. Mucosa moist. normocephalic and atraumatic Resp normal respiratory effort and clear to auscultation bilaterally Cardio regular rate, regular rhythm, S1 normal heart sound, S2 normal heart sound and no murmurs Peripheral Pulses: pulses 2+ throughout GI normal to inspection, nondistended, normoactive bowel sounds, soft to palpation, non-tender and non-distended Back/Spine no CVA tenderness and no thoracic nor lumbar tenderness Neuro oriented x3, CN's II-XII intact bilaterally, no sensory deficits noted and gait normal Sensorium / Orientation: awake and alert Psych mental status grossly normal Appearance: unkempt Skin no rashes or lesions noted and no wounds MDM MDM MDM Narrative Medical decision making narrative: Patient is a diabetic with chest discomfort. This may represent GERD versus cardiac versus noncardiac etiology. Nurse protocol was initiated. Will order GI cocktail since his main complaint is burning sensation. EKG that was obtained reveals artifact. There is no evidence of acute ischemic changes. He is tachycardic. Lab Data Attestation: I reviewed the patient's lab results. Lab results narrative: White count is elevated which is nonspecific. There is no significant shift or bandemia. Labs: Laboratory Results - last 24 hr 08/09/22 08/09/22 08/09/22 16:20 16:20 17:52 WBC 13.9 H RBC 5.48 Hgb 16.1 Hct 50.0 MCV 91.2 MCH 29.4 MCHC 32.2 RDW Std Deviation 47.7 H RDW Coeff of Hilary 14.3 Plt Count 259 MPV 11.6 Immature Gran % (Auto) 0.400 Neut % (Auto) 70.4 H Lymph % (Auto) 20.9 [place] % (Auto) 5.7 Eos % (Auto) 2.2 Baso % (Auto) 0.4 Absolute Neuts (auto) 9.8 H Absolute Lymphs (auto) 2.90 Nucleated RBC % 0 Sodium Cancelled 138 Potassium Cancelled 4.1 Chloride Cancelled 105 Carbon Dioxide Cancelled 29.0 Anion Gap Cancelled 4 L BUN Cancelled 17 Creatinine Cancelled 0.63 L Estim Creat Clear Calc Cancelled 150.79 Est GFR (MDRD) Af Amer Cancelled 182 Est GFR (MDRD) Non-Af Cancelled 150 BUN/Creatinine Ratio Cancelled 27.1 H Glucose Cancelled 99 Calcium Cancelled 8.6 Troponin I High Sens Cancelled 6 First troponin is normal. 2 hours pending. 2-hour troponin is 6. Delta is -1. Patient had improvement after GI cocktail Radiography Chest X-Ray - ED: 1 View and Read by ED Physician (Independently reviewed and interpreted by me at 1651 as negative for acute process. Borderline cardiomegaly versus poor inspiratory volume. There is no evidence of effusion, congestive heart failure or infiltrate. Mediastinum unremarkable. Osseous trucks unremarkable.) Diagnostic Testing: Clinical Impression(s) from Imaging Studies Chest X-Ray 08/09/22 16:40 IMPRESSION: No acute disease. Electronically Signed: Omid Davis MD at 16:55 EDT , EKG Initial EKG: Attestation: I personally reviewed and interpreted this EKG as follows: Interpretation: Sinus Tachycardia (Ventricular is 105. Other than sinus tach the EKG is on remarkable. MT interval 146 ms. QS duration 84 ms. QT duration 1050 ms. [place] is normal. There is artifact.) Discharge Plan Triage Chief Complaint: Chest Pain ED Provider: Benji Queen Dx/Rx/DC Orders Clinical Impression: Heartburn, Chest pain due to GERD Instructions: GERD Lifestyle Changes, How Acid Reflux Affects Your Throat, ED GERD (Adult) Prescriptions: New sucralfate [Carafate] 1 gram tablet 1 g PO ACHS Qty: 120 0RF No Action omeprazole 20 MG capsule 20 mg PO DAILY meloxicam 15 mg tablet 15 mg PO DAILY Label Comments: Take 1 tablet by mouth once daily. ergocalciferol (vitamin D2) 1,250 mcg (50,000 unit) capsule 50,000 unit PO MOFR Label Comments: Take 1 capsule by mouth two times a week. Rx Instructions: twice a week tuesday and fridays metformin 500 mg tablet 1,000 mg PO BID Label Comments: Take 2 tablets by mouth twice daily with meals. Start 1 tab with breakfast for 5 days, if tolerating increase to 1 tab with breakfast and 1 tab with dinner for 5 days, then increase to 2 tabs with breakfast and 1 tab with dinner for 5 days, then if tolerating increase to the 2 tabs twice a day with meals. glipizide 2.5 mg tablet extended release 24 hr 5 mg PO DAILY Label Comments: Take 1 tablet by mouth once daily. divalproex 500 mg tablet extended release 24 hr 500 mg PO DAILY Label Comments: Take 1 tablet by mouth daily at bedtime for 7 days, THEN 2 tablets daily at bedtime. risperidone 1 mg tablet 1 mg PO QHS Label Comments: Take 1 tablet by mouth daily at bedtime. methocarbamol 500 MG tablet 500 mg PO TID gabapentin 600 MG tablet 600 mg PO DAILY Primary Care Provider: Kaitlin Gudino Referrals: Kaitlin Gudino MD [Primary Care Provider] - 1 Week if not improving Disposition Disposition: Home, Self Care
[2022-08-09 16:27] LABS: Absolute Neutrophil Count 9.8 X10^3/uL (2.0-7.7); Basophil# 0.05 X10^3/uL; Basophil% 0.4 % (0-1); Eosinophil# 0.31 X10^3/uL; Eosinophils% 2.2 % (0-5); Hemoglobin 16.1 g/dL (13.0-16.5); Lymphocyte % 20.9 % (19-41); Mean Corp Hgb Conc 32.2 g/dL (32-36); Mean Corpuscular Hgb 29.4 pg (27.0-32.0); Mean Corpuscular Volume 91.2 fL (80-94); Mean Platelet Vol. 11.6 fl (6.2-12.0); Monocyte# 0.79 X10^3/uL; Monocyte% 5.7 % (0-10); NRBC Flagged by Analyzer 0 % (0-5); Neutrophil # 9.77 X10^3/uL (2.7-7.7); Neutrophil % 70.4 % (47-70); Platelet Count 259 K/mm3 (150-450); RBC Distribution Width CV 14.3 % (11.6-14.6); RBC Distribution Width SD 47.7 fl (35.1-43.9); Red Blood Count 5.48 M/mm3 (4.6-6.2); White Blood Count 13.9 K/mm3 (4.4-11.0)
[2022-08-09 16:33] VITALS: BP 150/82; PULSE 100; RESP 22; O2SAT 92
--- NOTE | 2022-08-09 16:40 | RAD_ITS ---
EXAM: XR CHEST, 1 VIEW CLINICAL INDICATION: chest pain TECHNIQUE: Frontal view of the chest. This report was created using [employer] report generation technology. COMPARISON: 12/08/2021 FINDINGS: LUNGS AND PLEURAL SPACES: Low lung volumes with mild subsegmental atelectasis at the lung bases. No consolidation. No pleural effusion or pneumothorax. HEART: Unremarkable. Cardiac silhouette not enlarged. MEDIASTINUM: Central airways and mediastinal contour are unremarkable. BONES/JOINTS: Unremarkable. SOFT TISSUES: Unremarkable. RAD/Chest 1 View (Portable) IMPRESSION: No acute disease. Electronically Signed: Omid Davis MD at 16:55 EDT ,
[2022-08-09] MEDS: Mag Hydrox/Al Hydrox/Simeth 30 ML UDC PO (17:58)
[2022-08-09 17:59] VITALS: BP 151/84; PULSE 98; RESP 16; O2SAT 96
[2022-08-09 18:17] LABS: Anion Gap 4 (5-15); BUN 17 mg/dL (7-18); BUN/Creat Ratio 27.1 RATIO (10-20); Calcium,Total 8.6 mg/dL (8.5-10.1); Chloride 105 mmol/L (98-107); Creatinine, Serum 0.63 mg/dL (0.70-1.30); EST Glomerular Filtration Rate 150 mL/min (>60); Est Glom Filt Rate - Afr Amer 182 mL/min (>60); Estimated Creatinine Clearance 150.79 ml/min; Glucose 99 mg/dL (74-106); Potassium 4.1 mmol/L (3.5-5.1); Sodium Level 138 mmol/L (136-145); Troponin-I HS 6 pg/mL (3.0-78.0)
[2022-08-09 18:25] VITALS: BP 159/72; PULSE 98; RESP 21; O2SAT 96
[2022-08-09 19:46] VITALS: BP 125/68; PULSE 103; RESP 25; O2SAT 98
[2022-08-09 21:24] VITALS: O2SAT 94
--- NOTE | 2022-08-09 21:25 | ED.RN ---
was on 2L NC in room at 97%, did well on RA 94% at dc.
== END 2022-08-09 21:26 | disposition home or self-care (01) ==
PROVIDERS: Emergency Provider Emergency Medicine; PCP Internal Medicine; Visit Provider Emergency Medicine
DX: K21.9 Gastro-esophageal reflux disease without esophagitis (principal); E11.9 Type 2 diabetes mellitus without complications; R07.9 Chest pain, unspecified; F12.90 Cannabis use, unspecified, uncomplicated
CPT/HCPCS: 71045; 80048; 84484; 85025; 93005; 99284; A4216